=== PATIENT | male | born 1990 | race Caucasian/White ===

== ENCOUNTER 2017-08-17 13:40 | Inpatient (IN) | payer MEDICAID ==
[2017-08-17] MEDS ORDERED: OLANZapine DISINTEGR 10 MG TAB PO PRN (15:07)
[2017-08-17] MEDS ORDERED: NICOTINE POLACRILEX 2 MG GUM B PRN (15:07)
[2017-08-17] MEDS ORDERED: MAGNESIUM HYDROXIDE 30 ML UDCUP PO PRN (15:07)
[2017-08-17] MEDS ORDERED: ACETAMINOPHEN 325 MG TAB PO PRN (15:07)
[2017-08-17] MEDS ORDERED: MAG HYDROX/AL HYDROX/SIMETH 30 ML UDCUP PO PRN (15:07)
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
[2017-08-18] MEDS ORDERED: OLANZapine DISINTEGR 5 MG TAB PO PRN (16:56)
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
[2017-08-18] MEDS: PALIPERIDONE 3 MG TAB.ER PO SCH (20:20)
--- NOTE | 2017-08-19 18:28 | SOAPPROG ---
SOAP Progress Note Assessment/Plan: Assessment: 27 yo man with h/o schizophrenia and severe cannabis dependence. He was placed on M1 after destroying property and becoming angry/aggressive toward his FOC at home b/c FOC refused to buy him marijuana. Plan: 08/19/17 18:17 1. spoke to PANKAJ, Dr. Gamboa, at length by phone. [facility] states that patient went to [facility] for approx. 6 mos in 2014 after inpatient stay at [facility] in October. He was treated by Dr. Huntley at [facility] with "many medications." [facility] can't remember all the meds or why so many were tried, but he says patient had difficulty tolerating many of them. [facility] reports SE's included agitation, tremors , lethargy. [facility] says patient seemed "obtunded," lethargic and "slowed down" on meds which patient didn't like. [facility] denied noticing severe depression during this time as patient reports happened to him from "taking Abilify." [facility] says when he was discharged, patient went to live in [place] and saw POTATO CHIP COOKER MACHINE, Reji Barrios , at [facility]. [facility] states patient was not compliant with treatment and chose to "smoke pot" instead. [facility] says patient has been off meds for most of the past 2 years. He says since patient has been living with him at home, [facility] notices patient smokes THC "almost every 20 minutes." [facility] states patient did best during time he was at [facility] in . He states Dr. Salazar was prescribing "low doses" of antipsychotic meds and patient was receiving supervision and therapy from providers at [facility]. He states this is "when Goyo did the best." MD asks if [facility] would like patient to return to [facility], but he says, "it costs too much...we can't afford it." [facility] states patient was "on my insurance" in 2012 and is "now on Medicaid." [facility] has tried to get patient to go see Nelia Del Angel at [facility], but "he won't go." Patient suffered "2 seizures" in the past several months. Per [facility], he had full work up by Dr. Jovanny Gillette at [facility] recently. MRI of brain revealed no acute abnormalities. [facility] insists patient has "never" had seizure before. FOC says he feels patient is more impulsive and labile and makes "worse decisions" d /t his marijuana use, but patient adamantly refuses to quit. Patient is also refusing to take any psychotropics b/c he doesn't like the way they make him feel. [facility] states he is not aware of the patient ever having severe reaction to AP meds, including no EPS or NMS. 2. Will continue to offer patient Invega, however, he is refusing all psychotropic meds. 3. Dr. Arguello has already submitted letter to [employer] for COM. 4. [facility] would like patient to f/u with [facility]. 5. CC to request patient sign ROIs for all providers [facility] mentioned, especially [facility] since this is the place he was treated most recently for the longest period of time. Subjective: Met with patient, reviewed chart and d/w staff. Initially when MD introduced himself to patient, the patient was very distracted and difficult to engage. Later, patient approached MD and said he wanted to talk about his meds. Patient said he had taken "Sustenna" and Abilify in past, but couldn't remember what he didn't like about them. Then patient said he remembered Abilify "made me depressed." He says he also remembers feeling "agitated" on "one of them" and "had to smoke a lot of weed" to calm himself down. Patient says he doesn't have bipolar disorder or schizophrenia so he doesn't think he needs to be on meds. He denies any SI/HI, and says he isn't having any active hallucinations "right now." Objective: Vital Signs Temp Pulse Resp BP Pulse Ox 36.7 C 61 15 104/60 96 08/18/17 06:00 08/18/17 06:00 08/18/17 06:00 08/18/17 06:00 08/18/17 06:00 MSE: Affect: Flat Mood: "OK" TP: Disorganized, irrational TC: Denies any SI/ HI, no AH/VH, very disorganized Insight/Judgment: Poor - Time Spent With Patient Time Spent With Patient: 25" - Pending Discharge Pending Discharge Within 24 Hours: No Pending Discharge Within 48 Hours: No ICD10 Worksheet Patient Problems: Problems Problem Status Onset Cannabis abuse, daily use Acute Schizophrenia, chronic condition with acute exacerbation Acute
[2017-08-19] MEDS: PALIPERIDONE 3 MG TAB.ER PO SCH (21:32)
--- NOTE | 2017-08-20 17:32 | SOAPPROG ---
SOAP Progress Note Assessment/Plan: Assessment: 27 yo man with h/o schizophrenia and severe cannabis dependence. He was placed on M1 after destroying property and becoming angry/aggressive toward his FOC at home b/c FOC refused to buy him marijuana. Plan: 08/19/17 18:17 1. spoke to PANKAJ, Dr. Gamboa, at length by phone. [facility] states that patient went to [facility] for approx. 6 mos in 2014 after inpatient stay at [facility] in October. He was treated by Dr. Huntley at [facility] with "many medications." [facility] can't remember all the meds or why so many were tried, but he says patient had difficulty tolerating many of them. [facility] reports SE's included agitation, tremors , lethargy. [facility] says patient seemed "obtunded," lethargic and "slowed down" on meds which patient didn't like. [facility] denied noticing severe depression during this time as patient reports happened to him from "taking Abilify." [facility] says when he was discharged, patient went to live in [place] and saw TERMINAL MANAGER, Reji Barrios , at [facility]. [facility] states patient was not compliant with treatment and chose to "smoke pot" instead. [facility] says patient has been off meds for most of the past 2 years. He says since patient has been living with him at home, [facility] notices patient smokes THC "almost every 20 minutes." [facility] states patient did best during time he was at [facility] in . He states Dr. Salazar was prescribing "low doses" of antipsychotic meds and patient was receiving supervision and therapy from providers at [facility]. He states this is "when Goyo did the best." MD asks if [facility] would like patient to return to [facility], but he says, "it costs too much...we can't afford it." [facility] states patient was "on my insurance" in 2012 and is "now on Medicaid." [facility] has tried to get patient to go see Nelia Del Angel at [facility], but "he won't go." Patient suffered "2 seizures" in the past several months. Per [facility], he had full work up by Dr. Jovanny Gillette at [facility] recently. MRI of brain revealed no acute abnormalities. [facility] insists patient has "never" had seizure before. PANKAJ says he feels patient is more impulsive and labile and makes "worse decisions" d /t his marijuana use, but patient adamantly refuses to quit. Patient is also refusing to take any psychotropics b/c he doesn't like the way they make him feel. [facility] states he is not aware of the patient ever having severe reaction to AP meds, including no EPS or NMS. 2. Will continue to offer patient Invega, however, he is refusing all psychotropic meds. 3. Dr. Arguello has already submitted letter to [email or web address] for Hello Chair. 4. [facility] would like patient to f/u with [facility]. 5. CC to request patient sign ROIs for all providers [facility] mentioned, especially [facility] since this is the place he was treated most recently for the longest period of time. 08/20/17 17:23 1. Patient presents disorganized, confused, irrational. He still doesn't believe there is "anything wrong" with him except "I'm depressed." 2. Lengthy conversation with patient's FOC again, this time in person. Dr. Gamboa believes "there is something else going on" with his son other than psychosis. He believes he "might have an autoimmune disease" or that there is a physical abnormality in his brain. However, Dr. Gamboa admits patient had "a clean MRI" ordered by his neurologist. His neurologist recommended "a Parkinson' s med" that he says "has been used to treat psychosis. explained to [facility] that patient has refused all antipsychotic meds and has little to no insight into the nature or severity of his condition. PANKAJ said, "I know, that's the problem. " [facility] agreed that if [facility] had not taken care of patient for the past 2 years, it' s likely patient would have been admitted to psych hospital sooner since he has refused all tx since d/c from [facility] and has increased his use of marijuana. [facility] didn't believe marijuana had as adverse effect on patient's brain development as explained was likely. PANKAJ said, "I believe in more brain plasticity." accepted this was certainly a possibility, but reminded PANKAJ how much brain development occurs during adolescence and that patient has likely not developed some significant neural connections that mediate executive function as well as emotion regulation. recommended waiting to see how much patient's mental condition improves off marijuana while he is in hospital. [facility] thanked MD for answering questions and providing information. He said, "I guess we'll have to wait and see" how much Wyatt improves. 3. Petition for Hello Chair submitted by Dr. Arguello. 4. [facility] Subjective: Met with patient, reviewed chart and d/w staff. Patient presents confused, disorganized, with limited insight into his condition. He is still refusing antipsychotic meds. He is willing to take Zoloft, but explained that his diagnosis was psychotic disorder and would respond best to treatment with antipsychotics like ones he has been prescribed in past at [facility] and [facility]. Objective: Vital Signs Temp Pulse Resp BP Pulse Ox 36.7 C 61 15 104/60 96 08/18/17 06:00 08/18/17 06:00 08/18/17 06:00 08/18/17 06:00 08/18/17 06:00 MSE: Affect: Euthymic Mood: "OK" TP: Disorganized, confused, irrational TC: Denies any SI/HI, no hallucinations Insight/Judgment: Poor - Time Spent With Patient Time Spent With Patient: 15" - Pending Discharge Pending Discharge Within 24 Hours: No Pending Discharge Within 48 Hours: No ICD10 Worksheet Patient Problems: Problems Problem Status Onset Cannabis abuse, daily use Acute Schizophrenia, chronic condition with acute exacerbation Acute
[2017-08-20] MEDS: PALIPERIDONE 3 MG TAB.ER PO SCH (20:04)
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
[2017-08-21] MEDS: CHLORHEXIDINE GLUCONATE 15 ML UDL PO SCH (20:23)
[2017-08-21] MEDS: PALIPERIDONE 3 MG TAB.ER PO SCH (20:34)
[2017-08-21 20:54] VITALS: BP 106/68
[2017-08-22] MEDS: lamoTRIgine 100 MG TAB PO SCH ×2 (08:17→20:49)
[2017-08-22] MEDS: CHLORHEXIDINE GLUCONATE 15 ML UDL PO SCH ×2 (08:21→20:47)
--- NOTE | 2017-08-22 14:15 | SOAPPROG ---
SOAP Progress Note Assessment/Plan: Assessment: Plan: Subjective: Pt seen, discussed with staff, chart reviewed. He is lying in bed, calm, and coop. Affect is euthymic, stable, approp. Mood is "fine". TP is generally linear. TC reveals poor reality testing re: illness and need for treatment. Denies AH's. May have some paranoia towards parents. Denies SI/HI/. Objective: Vital Signs Temp Pulse Resp BP Pulse Ox 37.1 C 96 12 106/68 97 08/21/17 20:52 08/21/17 20:52 08/21/17 20:52 08/21/17 20:52 08/21/17 20:52 - Time Spent With Patient Time Spent With Patient: 15" ICD10 Worksheet Patient Problems: Problems Problem Status Onset Cannabis abuse, daily use Acute Schizophrenia, chronic condition with acute exacerbation Acute Seizure Acute Seizure disorder Acute Tongue laceration Acute
[2017-08-22] MEDS: PALIPERIDONE 3 MG TAB.ER PO SCH (20:47)
[2017-08-23] MEDS: lamoTRIgine 100 MG TAB PO SCH ×2 (10:40→20:13)
[2017-08-23] MEDS: CHLORHEXIDINE GLUCONATE 15 ML UDL PO SCH ×2 (10:47→21:09)
--- NOTE | 2017-08-23 16:45 | SOAPPROG ---
SOAP Progress Note Assessment/Plan: Assessment: Plan: 08/23/17 16:44 Psychosis: Remains paranoid, though in good behavioral control. Continues to refuse meds. COM hearing is 08/29/17. Subjective: Pt seen, discussed with staff. Reports feeling "fine, bored." Continues to largely isolate in his room, but was out in the day room this afternoon talking with other young male patients. He is quite malodorous and refuses to shower. He continues to refuse meds. No word on any plan for further evaluation in [place]. Objective: Vital Signs Temp Pulse Resp BP Pulse Ox 37.1 C 96 12 106/68 97 08/21/17 20:52 08/21/17 20:52 08/21/17 20:52 08/21/17 20:52 08/21/17 20:52 - Time Spent With Patient Time Spent With Patient: 15" ICD10 Worksheet Patient Problems: Problems Problem Status Onset Cannabis abuse, daily use Acute Schizophrenia, chronic condition with acute exacerbation Acute Seizure Acute Seizure disorder Acute Tongue laceration Acute
[2017-08-23] MEDS: PALIPERIDONE 3 MG TAB.ER PO SCH (21:09)
[2017-08-24] MEDS: lamoTRIgine 100 MG TAB PO SCH ×2 (10:49→20:49)
[2017-08-24] MEDS: CHLORHEXIDINE GLUCONATE 15 ML UDL PO SCH ×2 (11:02→20:48)
--- NOTE | 2017-08-24 14:24 | SOAPPROG ---
SOAP Progress Note Assessment/Plan: Assessment: Plan: 08/23/17 16:44 Psychosis: Remains paranoid, though in good behavioral control. Continues to refuse meds. COM hearing is 08/29/17. 08/24/17 14:25 Psychosis: Unchanged. He demonstrates exceedingly poor insight into the nature and severity of his mental and physical illnesses. He refuses to even take the mouth cleanser. Will continue to build a therapeutic alliance and hope to see him start Latuda on a voluntary basis. Not ideal due to lack of a MCCORD, but could help with acute stabilization at least. COM hearing next week. Subjective: Pt seen, discussed with staff. Reports feeling "just fine." Staff notes that pt continues to refuse to shower, brush his teeth or rinse his mouth with the disinfectant. I discussed the necessity of this with him at length inc: stating to him that he could lose his tongue if he got an infection. He states he doesn't want to use it because it [place]. I told him that that is how you know it's working. He laughed at this, but I emphasized that it indicates it is killing the "bad bacteria." He continues to refuse all antipsychotic medications. Later, he came to my office and asked to go back through the options. He is against the Invega "because it poisons me and blocks serotonin. " He was willing to listen about Latuda, however, and states he will discuss it with his family. I reviewed records from pt's last hospitalization at [facility]. This was from 11/19/14 - 03/29/15. He was treated with Prolixin, Zoloft and Saphris at that time with good effect. His presentation was exactly the same as it is now. Objective: Vital Signs Temp Pulse Resp BP Pulse Ox 37.1 C 96 12 106/68 97 08/21/17 20:52 08/21/17 20:52 08/21/17 20:52 08/21/17 20:52 08/21/17 20:52 MSE: Calm, though guarded. Activity and speech are nl. Affect is blunted, stable. Mood is "fine." TP is generally linear, though circumstantial at times. TC reveals ongoing somatic preoccupation, paranoia and IOR's. Denies AH 's. - Time Spent With Patient Time Spent With Patient: 25" ICD10 Worksheet Patient Problems: Problems Problem Status Onset Cannabis abuse, daily use Acute Schizophrenia, chronic condition with acute exacerbation Acute Seizure Acute Seizure disorder Acute Tongue laceration Acute
[2017-08-24] MEDS: PALIPERIDONE 3 MG TAB.ER PO SCH (20:57)
[2017-08-25] MEDS: lamoTRIgine 100 MG TAB PO SCH ×2 (08:57→20:34)
[2017-08-25] MEDS: CHLORHEXIDINE GLUCONATE 15 ML UDL PO SCH ×2 (09:00→20:35)
--- NOTE | 2017-08-25 16:02 | SOAPPROG ---
SOAP Progress Note Assessment/Plan: Assessment: Plan: 08/23/17 16:44 Psychosis: Remains paranoid, though in good behavioral control. Continues to refuse meds. COM hearing is 08/29/17. 08/24/17 14:25 Psychosis: Unchanged. He demonstrates exceedingly poor insight into the nature and severity of his mental and physical illnesses. He refuses to even take the mouth cleanser. Will continue to build a therapeutic alliance and hope to see him start Latuda on a voluntary basis. Not ideal due to lack of a MCCORD, but could help with acute stabilization at least. COM hearing next week. 08/25/17 16:02 Psychosis: Calm and coop. Will proceed as above, cancel COM hearing. Subjective: Pt seen, discussed with staff. Family held with myself, CC, pt and pt's father. We discussed treatment and d/c plans. It appears that pt is not welcome back at either parent's home at this point. Father offered to arrange an apartment. Pt continues to refuse any antipsychotic medications, but is agreeable to starting Zoloft for his depressed mood and anxiety as this has been helpful in the past. He will also continue Lamictal. Objective: Vital Signs Temp Pulse Resp BP Pulse Ox 37.1 C 96 12 106/68 97 08/21/17 20:52 08/21/17 20:52 08/21/17 20:52 08/21/17 20:52 08/21/17 20:52 MSE: Calm, coop. Affect is euthymic, stable, approp. Mood is "depressed." TP generally linear. TC reveals some paranoid thoughts. Denies SI/HI/. - Time Spent With Patient Time Spent With Patient: 35" ICD10 Worksheet Patient Problems: Problems Problem Status Onset Cannabis abuse, daily use Acute Schizophrenia, chronic condition with acute exacerbation Acute Seizure Acute Seizure disorder Acute Tongue laceration Acute
[2017-08-25] MEDS: PALIPERIDONE 3 MG TAB.ER PO SCH (20:36)
[2017-08-26] MEDS: CHLORHEXIDINE GLUCONATE 15 ML UDL PO SCH ×2 (01:29→09:01)
[2017-08-26] MEDS ORDERED: CHLORHEXIDINE GLUCONATE 15 ML UDL ONE (02:23)
[2017-08-26] MEDS: lamoTRIgine 100 MG TAB PO SCH ×2 (09:01→21:44)
[2017-08-26] MEDS: SERTRALINE HCL 50 MG TAB PO SCH (15:31)
--- NOTE | 2017-08-26 15:58 | SOAPPROG ---
SOAP Progress Note Assessment/Plan: Assessment: Plan: 08/23/17 16:44 Psychosis: Remains paranoid, though in good behavioral control. Continues to refuse meds. COM hearing is 08/29/17. 08/24/17 14:25 Psychosis: Unchanged. He demonstrates exceedingly poor insight into the nature and severity of his mental and physical illnesses. He refuses to even take the mouth cleanser. Will continue to build a therapeutic alliance and hope to see him start Latuda on a voluntary basis. Not ideal due to lack of a MCCORD, but could help with acute stabilization at least. COM hearing next week. 08/25/17 16:02 Psychosis: Calm and coop. Will proceed as above, cancel COM hearing. 08/26/17 15:58 Psychosis: No change. Behaviorally stable. CCM. Continue d/c planning. Subjective: Pt seen, discussed with staff. I also spoke to pt's mother during her visit over lunch today. She describes him as "not well." She plans to talk to him about options for housing after d/c. SHe did not disclose whether that meant he could stay with her or not. I discussed this with pt earlier today and he stated, "I'll need to give her a big apology." Remains compliant with Lamictal and wants to take Zoloft. Objective: Vital Signs Temp Pulse Resp BP Pulse Ox 37.1 C 96 12 106/68 97 08/21/17 20:52 08/21/17 20:52 08/21/17 20:52 08/21/17 20:52 08/21/17 20:52 MSE: Calm, coop. Affect is euthymic, stable, approp. Mood is "good." TP linear. TC reveals some paranoia, poor reality testing. Denies SI/HI/. - Time Spent With Patient Time Spent With Patient: 25" ICD10 Worksheet Patient Problems: Problems Problem Status Onset Cannabis abuse, daily use Acute Schizophrenia, chronic condition with acute exacerbation Acute Seizure Acute Seizure disorder Acute Tongue laceration Acute
[2017-08-27] MEDS: LORazepam 0.5 MG TAB PO PRN ×4 (00:51→22:52)
[2017-08-27] MEDS: ACETAMINOPHEN 325 MG TAB PO PRN (02:21)
[2017-08-27] MEDS: SERTRALINE HCL 50 MG TAB PO SCH (07:52)
[2017-08-27] MEDS: lamoTRIgine 100 MG TAB PO SCH ×2 (07:53→20:21)
[2017-08-27] MEDS: CHLORHEXIDINE GLUCONATE 15 ML UDL PO SCH ×2 (08:25→20:26)
--- NOTE | 2017-08-27 14:35 | HOSPPROG ---
Hospitalist Progress Note Assessment/Plan: # ?thrush - empiric nystatin # tongue laceration - cont chlorhexadine # seizure - lamictal Subjective: ongoing mouth pain, better than yesterday Objective: Vital Signs Temp Pulse Resp BP Pulse Ox 37.1 C 96 12 106/68 97 08/21/17 20:52 08/21/17 20:52 08/21/17 20:52 08/21/17 20:52 08/21/17 20:52 08/26/17 08/27/17 08/28/17 05:59 05:59 05:59 Intake Total 1200 Balance 1200 - Physical Exam Ears, Nose, Mouth, Throat: other (whitish coating on tongue; laceration on tongue improved) ICD10 Worksheet Patient Problems: Problems Problem Status Onset Schizophrenia, chronic condition with acute exacerbation Acute Cannabis abuse, daily use Acute Seizure disorder Acute Seizure Acute Tongue laceration Acute
--- NOTE | 2017-08-27 15:51 | SOAPPROG ---
SOAP Progress Note Assessment/Plan: Assessment: Per Dr. Arguello's note: 08/23/17 16:44 Psychosis: Remains paranoid, though in good behavioral control. Continues to refuse meds. COM hearing is 08/29/17. 08/24/17 14:25 Psychosis: Unchanged. He demonstrates exceedingly poor insight into the nature and severity of his mental and physical illnesses. He refuses to even take the mouth cleanser. Will continue to build a therapeutic alliance and hope to see him start Latuda on a voluntary basis. Not ideal due to lack of a MCCORD, but could help with acute stabilization at least. COM hearing next week. 08/25/17 16:02 Psychosis: Calm and coop. Will proceed as above, cancel COM hearing. 08/26/17 15:58 Psychosis: No change. Behaviorally stable. CCM. Continue d/c planning. Plan: 08/27/17 15:47 1. Patient was seen by Dr. Alvarado today. Dr. Alvarado noted a whitish substance on patient's tongue and questioned possible thrush. He ordered empiric Nystatin. 2. Patient tolerating Lamictal for seizures and Zoloft for depression. Patient denies feeling sad, depressed, hopeless, worthless, helpless. He is sleeping, eating well and is future-oriented. He denies any SI/HI. 3. Patient has been attending groups and participating in milieu activities. 4. [facility] asked for family meeting prior to d/c to discuss housing options and treatment plans. Recommended she contact CC to set up a time to meet or talk by phone. Subjective: Met with patient, reviewed chart and d/w staff. Patient has been attending groups and participating in milieu activities, but he has no insight into the reasons he was admitted to hospital or why his POC are concerned about his ability to function after he leaves the hospital. Patient is not intending to do anything different after he leaves. It's unclear whether he will even remain on Lamictal for seizures as he has limited insight into why this medication is helping him. He thinks he had seizure b/c he stopped smoking pot, so plans to treat his seizures with more pot after d/c, despite his psychiatrists warning him about the risks and adverse reactions associated with marijuana use in patients susceptible to mood instability and psychosis. He denies any SI/HI. Objective: Vital Signs Temp Pulse Resp BP Pulse Ox 37.1 C 96 12 106/68 97 08/21/17 20:52 08/21/17 20:52 08/21/17 20:52 08/21/17 20:52 08/21/17 20:52 08/26/17 08/27/17 08/28/17 05:59 05:59 05:59 Intake Total 1200 Balance 1200 MSE: Affect: Euthymic Mood: "OK" TP: Tangential TC: Denies any SI/HI, less paranoia, no AH/VH Insight/Judgment: Impaired - Time Spent With Patient Time Spent With Patient: 15" - Pending Discharge Pending Discharge Within 24 Hours: No Pending Discharge Within 48 Hours: No ICD10 Worksheet Patient Problems: Problems Problem Status Onset Cannabis abuse, daily use Acute Schizophrenia, chronic condition with acute exacerbation Acute Seizure Acute Seizure disorder Acute Tongue laceration Acute
[2017-08-27] MEDS: NYSTATIN SUSP 500000 UNIT/5 ML UDCUP PO SCH ×2 (18:36→20:27)
[2017-08-28] MEDS: LORazepam 0.5 MG TAB PO PRN (05:10)
[2017-08-28] MEDS: NYSTATIN SUSP 500000 UNIT/5 ML UDCUP PO SCH ×2 (06:57→14:59)
[2017-08-28] MEDS: lamoTRIgine 100 MG TAB PO SCH ×2 (08:46→20:15)
[2017-08-28] MEDS: SERTRALINE HCL 50 MG TAB PO SCH (08:46)
[2017-08-28] MEDS: CHLORHEXIDINE GLUCONATE 15 ML UDL PO SCH ×2 (11:07→20:15)
--- NOTE | 2017-08-28 14:20 | SOAPPROG ---
SOAP Progress Note Assessment/Plan: Assessment: Per Dr. Arguello's note: 08/23/17 16:44 Psychosis: Remains paranoid, though in good behavioral control. Continues to refuse meds. COM hearing is 08/29/17. 08/24/17 14:25 Psychosis: Unchanged. He demonstrates exceedingly poor insight into the nature and severity of his mental and physical illnesses. He refuses to even take the mouth cleanser. Will continue to build a therapeutic alliance and hope to see him start Latuda on a voluntary basis. Not ideal due to lack of a MCCORD, but could help with acute stabilization at least. COM hearing next week. 08/25/17 16:02 Psychosis: Calm and coop. Will proceed as above, cancel COM hearing. 08/26/17 15:58 Psychosis: No change. Behaviorally stable. CCM. Continue d/c planning. Plan: 08/27/17 15:47 1. Patient was seen by Dr. Alvarado today. Dr. Alvarado noted a whitish substance on patient's tongue and questioned possible thrush. He ordered empiric Nystatin. 2. Patient tolerating Lamictal for seizures and Zoloft for depression. Patient denies feeling sad, depressed, hopeless, worthless, helpless. He is sleeping, eating well and is future-oriented. He denies any SI/HI. 3. Patient has been attending groups and participating in milieu activities. 4. [facility] asked for family meeting prior to d/c to discuss housing options and treatment plans. Recommended she contact CC to set up a time to meet or talk by phone. 08/28/17 14:14 1. Patient has not been eating solid food x 2 days. Patient says it is b/c his tongue hurts. However, Dr. Alvarado noted that patient should be able to eat solid food now. Patient is drinking plenty of fluids. 2. Continue Peridex and Nystatin. 3. Patient denies any SE's from Zoloft or Lamictal, no rash. 4. Patient received Ativan PRN x 2 for anxiety. 5. COM petition has been dropped. Subjective: Met with patient, reviewed chart and d/w staff. Patient told staff he felt "anxious" and has taken Ativan PRN x 2 last night and today. However, when MD met with patient, he did not present as agitated, anxious or restless. He played MOgene with POC yesterday and did not seem anxious or distracted during that encounter. Patient has been refusing to eat solid food x 2 days. He says his tongue still "hurts." However, Dr. Alvarado noted that patient should be able to tolerate regular meals. Patient was asked to leave group this AM b/c he was provoking a peer with incessant questions. He told staff he "didn't say anything" at all in group to upset peer. Patient has not been aggressive or inappropriate, but he does present as disorganized and doesn't make sense much of the time. He denies any SI/HI, and denies any AH/VH. Objective: Vital Signs Temp Pulse Resp BP Pulse Ox 37.1 C 96 12 106/68 97 08/21/17 20:52 08/21/17 20:52 08/21/17 20:52 08/21/17 20:52 08/21/17 20:52 08/27/17 08/28/17 08/29/17 05:59 05:59 05:59 Intake Total 2560 Balance 2560 MSE: Affect: Euthymic Mood: "OK" TP: Tangential, disorganized, illogical TC: Denies any SI/HI, no AH/VH Insight/Judgment: Impaired - Time Spent With Patient Time Spent With Patient: 15" - Pending Discharge Pending Discharge Within 24 Hours: No Pending Discharge Within 48 Hours: No ICD10 Worksheet Patient Problems: Problems Problem Status Onset Cannabis abuse, daily use Acute Schizophrenia, chronic condition with acute exacerbation Acute Seizure Acute Seizure disorder Acute Tongue laceration Acute
[2017-08-28] MEDS ORDERED: CEPACOL LOZENGE PO PRN (15:31)
--- NOTE | 2017-08-28 15:31 | HOSPPROG ---
Hospitalist Progress Note Assessment/Plan: # ?thrush - discussed with ID - doubt thrush; more likely normal tongue carpet - stop nystatin # tongue laceration - cont chlorhexadine # odynophagia - may be due to the tongue laceration (should not be due to the tongue carpet) - he should be able to eat soft foods if not tolerating solids - he could trial cepacol lozenge Subjective: feels his mouth i slightly better after using mouthwash Objective: Vital Signs Temp Pulse Resp BP Pulse Ox 37.1 C 96 12 106/68 97 08/21/17 20:52 08/21/17 20:52 08/21/17 20:52 08/21/17 20:52 08/21/17 20:52 08/27/17 08/28/17 08/29/17 05:59 05:59 05:59 Intake Total 2560 Balance 2560 - Physical Exam Ears, Nose, Mouth, Throat: other (tongue with whitish material; none on buccal mucosa or palate) ICD10 Worksheet Patient Problems: Problems Problem Status Onset Schizophrenia, chronic condition with acute exacerbation Acute Cannabis abuse, daily use Acute Seizure disorder Acute Seizure Acute Tongue laceration Acute
[2017-08-29] MEDS: SERTRALINE HCL 50 MG TAB PO SCH (07:50)
[2017-08-29] MEDS: lamoTRIgine 100 MG TAB PO SCH ×2 (07:50→20:37)
[2017-08-29] MEDS: CHLORHEXIDINE GLUCONATE 15 ML UDL PO SCH ×3 (14:43→20:37)
--- NOTE | 2017-08-29 17:48 | SOAPPROG ---
SOAP Progress Note Assessment/Plan: Assessment: Plan: 08/23/17 16:44 Psychosis: Remains paranoid, though in good behavioral control. Continues to refuse meds. COM hearing is 08/29/17. 08/24/17 14:25 Psychosis: Unchanged. He demonstrates exceedingly poor insight into the nature and severity of his mental and physical illnesses. He refuses to even take the mouth cleanser. Will continue to build a therapeutic alliance and hope to see him start Latuda on a voluntary basis. Not ideal due to lack of a MCCORD, but could help with acute stabilization at least. COM hearing next week. 08/25/17 16:02 Psychosis: Calm and coop. Will proceed as above, cancel COM hearing. 08/26/17 15:58 Psychosis: No change. Behaviorally stable. CCM. Continue d/c planning. 08/29/17 17:49 Psychosis: More disruptive. He continues to lack meaningful insight into his illness or the need for treatment. He continues to refuse any antipsychotic medication. Will resubmit request for involuntary medications. Subjective: Pt seen, discussed with staff, chart reviewed. Reports feeling "fine." Was reported to be antagonistic over the weekend, bothering fellow patients by frequently stating medication are bad for people and everyone should stop them and use marijuana to treat themselves. I discussed the case with patient's father x 30" and his mother x 45" this afternoon. Both now state that they do not believe he will be safe without court-ordered antipsychotic medications. He remains adamantly against these, though has been taking Lamictal and Zoloft. He also states now that he plans to return to marijuana use as soon as he leaves the hospital. Objective: Vital Signs Temp Pulse Resp BP Pulse Ox 37.1 C 96 12 106/68 97 08/21/17 20:52 08/21/17 20:52 08/21/17 20:52 08/21/17 20:52 08/21/17 20:52 08/28/17 08/29/17 08/30/17 05:59 05:59 05:59 Intake Total 2560 240 780 Balance 2560 240 780 MSE: Poorly groomed, guarded. Affect is constricted, stable. Mood is "good." TP abbreviated, generally linear. TC reveals no mention of AH's. Remains focused on his "muslim" beliefs. Avoids discussion of delusional systems. - Time Spent With Patient Time Spent With Patient: 90" ICD10 Worksheet Patient Problems: Problems Problem Status Onset Cannabis abuse, daily use Acute Schizophrenia, chronic condition with acute exacerbation Acute Seizure Acute Seizure disorder Acute Tongue laceration Acute
[2017-08-30] MEDS: ACETAMINOPHEN 325 MG TAB PO PRN ×3 (02:10→21:40)
[2017-08-30] MEDS: SERTRALINE HCL 50 MG TAB PO SCH (08:58)
[2017-08-30] MEDS: lamoTRIgine 100 MG TAB PO SCH ×2 (08:58→21:02)
[2017-08-30] MEDS: CHLORHEXIDINE GLUCONATE 15 ML UDL PO SCH ×2 (14:52→21:06)
--- NOTE | 2017-08-30 22:14 | SOAPPROG ---
SOAP Progress Note Assessment/Plan: Assessment: Plan: 08/23/17 16:44 Psychosis: Remains paranoid, though in good behavioral control. Continues to refuse meds. COM hearing is 08/29/17. 08/24/17 14:25 Psychosis: Unchanged. He demonstrates exceedingly poor insight into the nature and severity of his mental and physical illnesses. He refuses to even take the mouth cleanser. Will continue to build a therapeutic alliance and hope to see him start Latuda on a voluntary basis. Not ideal due to lack of a MCCORD, but could help with acute stabilization at least. COM hearing next week. 08/25/17 16:02 Psychosis: Calm and coop. Will proceed as above, cancel COM hearing. 08/26/17 15:58 Psychosis: No change. Behaviorally stable. CCM. Continue d/c planning. 08/29/17 17:49 Psychosis: More disruptive. He continues to lack meaningful insight into his illness or the need for treatment. He continues to refuse any antipsychotic medication. Will resubmit request for involuntary medications. 08/30/17 22:14 Psychosis: REmains psychotic. CCM. Applied for COM Subjective: Pt seen, discussed with staff. I reviewed with him my opinion that he is unsafe and unstable without antipsychotic medications. He becomes angry, stating, "Your medications are against my episcopal, they're evil." He then went on to state that all psychotropic medications are "poison" and he will never take them voluntarily. Objective: Vital Signs Temp Pulse Resp BP Pulse Ox 37.1 C 96 12 106/68 97 08/21/17 20:52 08/21/17 20:52 08/21/17 20:52 08/21/17 20:52 08/21/17 20:52 08/29/17 08/30/17 08/31/17 05:59 05:59 05:59 Intake Total 008 158 0582 Balance 771 588 7619 ICD10 Worksheet Patient Problems: Problems Problem Status Onset Cannabis abuse, daily use Acute Schizophrenia, chronic condition with acute exacerbation Acute Seizure Acute Seizure disorder Acute Tongue laceration Acute
[2017-08-31] MEDS: ACETAMINOPHEN 325 MG TAB PO PRN ×4 (01:38→22:59)
[2017-08-31] MEDS: SERTRALINE HCL 50 MG TAB PO SCH (08:56)
[2017-08-31] MEDS: lamoTRIgine 100 MG TAB PO SCH ×3 (08:56→21:09)
[2017-08-31] MEDS: CHLORHEXIDINE GLUCONATE 15 ML UDL PO SCH ×4 (13:08→21:10)
--- NOTE | 2017-08-31 14:02 | SOAPPROG ---
SOAP Progress Note Assessment/Plan: Assessment: Plan: 08/23/17 16:44 Psychosis: Remains paranoid, though in good behavioral control. Continues to refuse meds. COM hearing is 08/29/17. 08/24/17 14:25 Psychosis: Unchanged. He demonstrates exceedingly poor insight into the nature and severity of his mental and physical illnesses. He refuses to even take the mouth cleanser. Will continue to build a therapeutic alliance and hope to see him start Latuda on a voluntary basis. Not ideal due to lack of a MCCORD, but could help with acute stabilization at least. COM hearing next week. 08/25/17 16:02 Psychosis: Calm and coop. Will proceed as above, cancel COM hearing. 08/26/17 15:58 Psychosis: No change. Behaviorally stable. CCM. Continue d/c planning. 08/29/17 17:49 Psychosis: More disruptive. He continues to lack meaningful insight into his illness or the need for treatment. He continues to refuse any antipsychotic medication. Will resubmit request for involuntary medications. 08/30/17 22:14 Psychosis: REmains psychotic. CCM. Applied for COM 08/31/17 14:02 Psychosis: Unchanged. CCM. Subjective: Pt seen, discussed with staff. RN reports a diffuse rash on his back and abdomen. Difficult for me to see. Pt does not notice it. He continues to refuse all antipsychotic medications, though states he will take PO Latuda. He goes on to say, however, that he believes it is poison and will not take it after leaving the hospital. Objective: Vital Signs Temp Pulse Resp BP Pulse Ox 37.1 C 96 12 106/68 97 08/21/17 20:52 08/21/17 20:52 08/21/17 20:52 08/21/17 20:52 08/21/17 20:52 08/30/17 08/31/17 09/01/17 05:59 05:59 05:59 Intake Total 780 1350 Balance 780 1350 - Time Spent With Patient Time Spent With Patient: 15" ICD10 Worksheet Patient Problems: Problems Problem Status Onset Cannabis abuse, daily use Acute Schizophrenia, chronic condition with acute exacerbation Acute Seizure Acute Seizure disorder Acute Tongue laceration Acute
--- NOTE | 2017-08-31 19:48 | SOAPPROG ---
SOAP Progress Note Assessment/Plan: Assessment: Rash on upper arms, unclear etiology. Trial of triamcinolone. It does not itch or burn so doubt that it is consistent with eczema. Does not appear psoriatic. Not raise so not consistent with keratosis pilaris. Observe for resolution. Groin rash, likely tinea cruris. Ordered nystatin powder. Mouth pain, possible residual of tongue biting when he had a seizure. No discrete lesions seen. Encourage hygiene with regular toothbrush after meals. Encourage regular showering. 08/31/17 19:48 Subjective: Asked to see patient about rash in about mouth pain. He shows a rash on his upper arms. Nurse reports ports a rash in his groin as well. Objective: Vital Signs Temp Pulse Resp BP Pulse Ox 37.1 C 96 12 106/68 97 08/21/17 20:52 08/21/17 20:52 08/21/17 20:52 08/21/17 20:52 08/21/17 20:52 08/30/17 08/31/17 09/01/17 05:59 05:59 05:59 Intake Total 780 1350 Balance 780 1350 Physical Exam - Physical Exam General Appearance: WD/WN, alert, no apparent distress EENT: other (No discrete mucosal lesions seen. Has coating on tongue which does not appear consistent with thrush.) Skin: other (Blanching petechiae on lower aspect of left arm greater than right arm, not raised.) ICD10 Worksheet Patient Problems: Problems Problem Status Onset Cannabis abuse, daily use Acute Schizophrenia, chronic condition with acute exacerbation Acute Seizure Acute Seizure disorder Acute Tongue laceration Acute
[2017-08-31] MEDS: NYSTATIN POWDER 15 GM BTL TP SCH (21:09)
[2017-08-31] MEDS: TRIAMCINOLONE 0.1% 15 GM CRTUBE TP SCH (21:09)
[2017-09-01] MEDS: ACETAMINOPHEN 325 MG TAB PO PRN ×3 (07:37→23:44)
[2017-09-01] MEDS: lamoTRIgine 100 MG TAB PO SCH (08:38)
[2017-09-01] MEDS: SERTRALINE HCL 50 MG TAB PO SCH (08:38)
[2017-09-01] MEDS: TRIAMCINOLONE 0.1% 15 GM CRTUBE TP SCH ×3 (08:51→20:01)
[2017-09-01] MEDS: CHLORHEXIDINE GLUCONATE 15 ML UDL PO SCH ×4 (08:51→22:10)
[2017-09-01] MEDS: NYSTATIN POWDER 15 GM BTL TP SCH ×3 (08:51→20:01)
--- NOTE | 2017-09-01 15:03 | SOAPPROG ---
SOAP Progress Note Assessment/Plan: Assessment: Plan: 08/23/17 16:44 Psychosis: Remains paranoid, though in good behavioral control. Continues to refuse meds. COM hearing is 08/29/17. 08/24/17 14:25 Psychosis: Unchanged. He demonstrates exceedingly poor insight into the nature and severity of his mental and physical illnesses. He refuses to even take the mouth cleanser. Will continue to build a therapeutic alliance and hope to see him start Latuda on a voluntary basis. Not ideal due to lack of a MCCORD, but could help with acute stabilization at least. COM hearing next week. 08/25/17 16:02 Psychosis: Calm and coop. Will proceed as above, cancel COM hearing. 08/26/17 15:58 Psychosis: No change. Behaviorally stable. CCM. Continue d/c planning. 08/29/17 17:49 Psychosis: More disruptive. He continues to lack meaningful insight into his illness or the need for treatment. He continues to refuse any antipsychotic medication. Will resubmit request for involuntary medications. 08/30/17 22:14 Psychosis: REmains psychotic. CCM. Applied for COM 08/31/17 14:02 Psychosis: Unchanged. CCM. 09/01/17 15:04 Psychosis: Remains gravely disabled and danger to others due to lack of insight into nature or severity of his illness. Will CCM. See [facility]: MCCORD. Will change to alternative AED. Subjective: Pt seen, discussed with staff. Reports feeling "fine." Refused Lamictal due to worry over rash. Appreciate Dr. Lyons's input. Behaviors remain stable. Still irritable/hostile with family. Continues to refuse antipsychotic medications. Objective: Vital Signs Temp Pulse Resp BP Pulse Ox 37.1 C 96 12 106/68 97 08/21/17 20:52 08/21/17 20:52 08/21/17 20:52 08/21/17 20:52 08/21/17 20:52 08/31/17 09/01/17 09/02/17 05:59 05:59 05:59 Intake Total 1350 Balance 1350 MSE: Calm, though guarded. Affect is constricted, stable. Mood is "fine." TP generally linear. TC reveals some paranoid and odd catholic thoughts. - Time Spent With Patient Time Spent With Patient: 15" ICD10 Worksheet Patient Problems: Problems Problem Status Onset Cannabis abuse, daily use Acute Schizophrenia, chronic condition with acute exacerbation Acute Seizure Acute Seizure disorder Acute Tongue laceration Acute
[2017-09-01] MEDS: levETIRAcetam 500 MG TAB PO SCH (19:09)
[2017-09-02] MEDS: ACETAMINOPHEN 325 MG TAB PO PRN ×3 (03:44→22:14)
[2017-09-02] MEDS: SERTRALINE HCL 50 MG TAB PO SCH (08:44)
[2017-09-02] MEDS: levETIRAcetam 500 MG TAB PO SCH ×2 (08:44→20:05)
[2017-09-02] MEDS: CHLORHEXIDINE GLUCONATE 15 ML UDL PO SCH ×3 (12:50→22:38)
[2017-09-02] MEDS: TRIAMCINOLONE 0.1% 15 GM CRTUBE TP SCH ×3 (14:50→21:29)
[2017-09-02] MEDS: NYSTATIN POWDER 15 GM BTL TP SCH ×3 (14:50→21:29)
--- NOTE | 2017-09-02 14:53 | SOAPPROG ---
SOAP Progress Note Assessment/Plan: Assessment: Plan: 08/23/17 16:44 Psychosis: Remains paranoid, though in good behavioral control. Continues to refuse meds. COM hearing is 08/29/17. 08/24/17 14:25 Psychosis: Unchanged. He demonstrates exceedingly poor insight into the nature and severity of his mental and physical illnesses. He refuses to even take the mouth cleanser. Will continue to build a therapeutic alliance and hope to see him start Latuda on a voluntary basis. Not ideal due to lack of a MCCORD, but could help with acute stabilization at least. COM hearing next week. 08/25/17 16:02 Psychosis: Calm and coop. Will proceed as above, cancel COM hearing. 08/26/17 15:58 Psychosis: No change. Behaviorally stable. CCM. Continue d/c planning. 08/29/17 17:49 Psychosis: More disruptive. He continues to lack meaningful insight into his illness or the need for treatment. He continues to refuse any antipsychotic medication. Will resubmit request for involuntary medications. 08/30/17 22:14 Psychosis: REmains psychotic. CCM. Applied for COM 08/31/17 14:02 Psychosis: Unchanged. CCM. 09/01/17 15:04 Psychosis: Remains gravely disabled and danger to others due to lack of insight into nature or severity of his illness. Will CCM. See [facility]: M[facility]. Will change to alternative AED. 09/02/17 14:52 Psychosis: Calm and coop. Agrees to take Latuda. Will proceed with this while waiting for COM hearing. The risks, benefits and alternatives of Latuday are discussed with pt. Subjective: Pt seen, discussed with staff. Reports feeling "fine." Discussed meds and he states again that he is willing to take Latuda orally. Also states that he is considering the possibility that the MJ may be worsening his mental state. No behavioral problems. Rash is unchanged. Objective: Vital Signs Temp Pulse Resp BP Pulse Ox 37.1 C 96 12 106/68 97 08/21/17 20:52 08/21/17 20:52 08/21/17 20:52 08/21/17 20:52 08/21/17 20:52 MSE: Calm, coop. Affect is blunted, stable. Mood is "fine." TP is generally linear. TC reveals no A/V/T hallucinations, some paranoid and grandiose thoughts. ICD10 Worksheet Patient Problems: Problems Problem Status Onset Cannabis abuse, daily use Acute Schizophrenia, chronic condition with acute exacerbation Acute Seizure Acute Seizure disorder Acute Tongue laceration Acute
[2017-09-02] MEDS: LURASIDONE HCL 40 MG TAB PO SCH (20:05)
[2017-09-03] MEDS: LORazepam 0.5 MG TAB PO PRN (01:32)
[2017-09-03] MEDS: ACETAMINOPHEN 325 MG TAB PO PRN (03:18)
[2017-09-03] MEDS: CHLORHEXIDINE GLUCONATE 15 ML UDL PO SCH ×2 (07:34→22:39)
[2017-09-03] MEDS: SERTRALINE HCL 50 MG TAB PO SCH (07:34)
[2017-09-03] MEDS: levETIRAcetam 500 MG TAB PO SCH ×2 (07:35→21:30)
[2017-09-03] MEDS: NYSTATIN POWDER 15 GM BTL TP SCH ×3 (08:32→22:40)
[2017-09-03] MEDS: TRIAMCINOLONE 0.1% 15 GM CRTUBE TP SCH ×3 (08:33→22:40)
--- NOTE | 2017-09-03 14:42 | SOAPPROG ---
SOAP Progress Note Assessment/Plan: Assessment: Per Dr. Arguello's note: 08/29/17 17:49 Psychosis: More disruptive. He continues to lack meaningful insight into his illness or the need for treatment. He continues to refuse any antipsychotic medication. Will resubmit request for involuntary medications. 08/30/17 22:14 Psychosis: REmains psychotic. CCM. Applied for COM 08/31/17 14:02 Psychosis: Unchanged. CCM. 09/01/17 15:04 Psychosis: Remains gravely disabled and danger to others due to lack of insight into nature or severity of his illness. Will CCM. See [facility]: M[facility]. Will change to alternative AED. 09/02/17 14:52 Psychosis: Calm and coop. Agrees to take Latuda. Will proceed with this while waiting for COM hearing. The risks, benefits and alternatives of Latuday are discussed with pt. 09/03/17 14:37 1. Patient switched from Lamictal to Keppra this week for seizures d/t rash. 2. Patient agreed to take Latuda last night, but tells MD he "thought I was going to ." Patient says he felt a "negative void" in his chest. He denies any kind of chest pain, and denies any physical reaction. He states it felt "like a 9.8" but doesn't say on what kind of scale. Patient denies stiffness, rigidity, slowing. There is no evidence of dystonia or abnormal involuntary movements. MD encourages patient to try medication again and give it sufficient time to demonstrate benefits, but patient says "no way." 3. Dr. Chong, a court appointed forensic psychiatrist, completed a capacity evaluation on behalf of [facility] where patient has a reckless driving charge from 02/2017. Documentation from [facility] Court was placed in the patient's chart. 4. [id number] petition pending. Subjective: Met with patient, reviewed chart and d/w staff. Patient states taking Latuda last night was a "terrible" experience. He says, "I almost ." When asked to explain, patient reports he felt a "negative feeling" in his chest, but denies any physical reaction, and there was no report of dystonia. Patient denies any stiffness, rigidity, slowing, no s/s of EPS present. Patient goes completely off topic and tells MD that he "researched antipsychotics" and found a study where "140 crazy people were studied" and "70 took antipsychotics and 70 didn't. " He goes on to say that the conclusion of the research showed that "the drugs make people more crazy." Patient said he was getting "amped" up talking about it , and abruptly ended conversation by walking away from MD. Objective: Vital Signs Temp Pulse Resp BP Pulse Ox 37.1 C 96 12 106/68 97 08/21/17 20:52 08/21/17 20:52 08/21/17 20:52 08/21/17 20:52 08/21/17 20:52 MSE: Affect: Labile, irritable at the end of conversation Mood: "OK" TP: Disorganized, tangential, irrational TC: No SI/HI, denies any AH/VH, still has some paranoia about meds especially Insight/Judgment: Poor - Time Spent With Patient Time Spent With Patient: 25" - Pending Discharge Pending Discharge Within 24 Hours: No Pending Discharge Within 48 Hours: No ICD10 Worksheet Patient Problems: Problems Problem Status Onset Cannabis abuse, daily use Acute Schizophrenia, chronic condition with acute exacerbation Acute Seizure Acute Seizure disorder Acute Tongue laceration Acute
[2017-09-03] MEDS ORDERED: IBUPROFEN 200 MG TAB PO PRN (15:06)
[2017-09-03] MEDS: LURASIDONE HCL 40 MG TAB PO SCH ×2 (18:21→18:24)
[2017-09-04] MEDS: levETIRAcetam 500 MG TAB PO SCH ×2 (10:19→22:12)
[2017-09-04] MEDS: SERTRALINE HCL 50 MG TAB PO SCH ×2 (10:20→12:18)
[2017-09-04] MEDS: NYSTATIN POWDER 15 GM BTL TP SCH ×3 (12:19→22:14)
[2017-09-04] MEDS: TRIAMCINOLONE 0.1% 15 GM CRTUBE TP SCH ×3 (12:26→22:14)
--- NOTE | 2017-09-04 14:02 | SOAPPROG ---
SOAP Progress Note Assessment/Plan: Assessment: Per Dr. Arguello's note: 08/29/17 17:49 Psychosis: More disruptive. He continues to lack meaningful insight into his illness or the need for treatment. He continues to refuse any antipsychotic medication. Will resubmit request for involuntary medications. 08/30/17 22:14 Psychosis: REmains psychotic. CCM. Applied for COM 08/31/17 14:02 Psychosis: Unchanged. CCM. 09/01/17 15:04 Psychosis: Remains gravely disabled and danger to others due to lack of insight into nature or severity of his illness. Will CCM. See COM inc: [facility]. Will change to alternative AED. 09/02/17 14:52 Psychosis: Calm and coop. Agrees to take Latuda. Will proceed with this while waiting for COM hearing. The risks, benefits and alternatives of Latuday are discussed with pt. 09/03/17 14:37 1. Patient switched from Lamictal to Keppra this week for seizures d/t rash. 2. Patient agreed to take Latuda last night, but tells MD he "thought I was going to ." Patient says he felt a "negative void" in his chest. He denies any kind of chest pain, and denies any physical reaction. He states it felt "like a 9.8" but doesn't say on what kind of scale. Patient denies stiffness, rigidity, slowing. There is no evidence of dystonia or abnormal involuntary movements. MD encourages patient to try medication again and give it sufficient time to demonstrate benefits, but patient says "no way." 3. Dr. Chong, a court appointed forensic psychiatrist, completed a capacity evaluation on behalf of [facility] where patient has a reckless driving charge from 02/2017. Documentation from [facility] was placed in the patient's chart. 4. [employer] petition pending. 09/04/17 13:59 1. Patient more irritable, especially when discussing meds with MD. He also appears more illogical and confused. 2. Patient refused Latuda last night and told peer, "don't take anything they give you here." He also refused Zoloft this AM, but later asked MD to "increase my dose of Zoloft." MD reminded patient he had refused AM dose, he said he wanted to "save it up" but couldn't explain why. MD told patient that it was too soon to increase dose and that he needed to take it at regular times to maintain its effectiveness. Patient said, "that's not how it works" and got agitated and walked away. 3. Patient slept 11 hrs last night, did not get up for breakfast. Staff report he was pacing the halls c/o "I'm gonna ..." apparently b/c he thought Latuda he took the prior evening was harming him. Subjective: Met with patient, reviewed chart and d/w staff. Patient more irritable, especially when discussing meds with MD. He also appears more illogical and confused. Patient refused Latuda last night and told peer, "don't take anything they give you here." He also refused Zoloft this AM, but later asked MD to "increase my dose of Zoloft." MD reminded patient he had refused AM dose, he said he wanted to "save it up" but couldn't explain why. MD told patient that it was too soon to increase dose and that he needed to take it at regular times to maintain its effectiveness. Patient said, "that's not how it works" and got agitated and walked away. Patient slept 11 hrs last night, did not get up for breakfast. Staff report he was pacing the halls c/o "I'm gonna ..." apparently b/c he thought Latuda he took the prior evening was harming him. Objective: Vital Signs Temp Pulse Resp BP Pulse Ox 37.1 C 96 12 106/68 97 08/21/17 20:52 08/21/17 20:52 08/21/17 20:52 08/21/17 20:52 08/21/17 20:52 MSE: Affect: Irritable Mood: "OK" TP: Disorganized, illogical TC: Paranoid, delusional, denies any AH/VH Insight/Judgment: Impaired - Time Spent With Patient Time Spent With Patient: 20" - Pending Discharge Pending Discharge Within 24 Hours: No Pending Discharge Within 48 Hours: No ICD10 Worksheet Patient Problems: Problems Problem Status Onset Cannabis abuse, daily use Acute Schizophrenia, chronic condition with acute exacerbation Acute Seizure Acute Seizure disorder Acute Tongue laceration Acute
[2017-09-04] MEDS: CHLORHEXIDINE GLUCONATE 15 ML UDL PO SCH ×2 (15:51→22:13)
[2017-09-04] MEDS: LURASIDONE HCL 40 MG TAB PO SCH (19:12)
[2017-09-05] MEDS: SERTRALINE HCL 50 MG TAB PO SCH (12:42)
[2017-09-05] MEDS: levETIRAcetam 500 MG TAB PO SCH ×2 (12:42→20:47)
[2017-09-05] MEDS: TRIAMCINOLONE 0.1% 15 GM CRTUBE TP SCH ×3 (12:43→21:26)
[2017-09-05] MEDS: NYSTATIN POWDER 15 GM BTL TP SCH ×3 (12:43→21:26)
--- NOTE | 2017-09-05 13:28 | SOAPPROG ---
SOAP Progress Note Assessment/Plan: Assessment: Plan: 08/23/17 16:44 Psychosis: Remains paranoid, though in good behavioral control. Continues to refuse meds. COM hearing is 08/29/17. 08/24/17 14:25 Psychosis: Unchanged. He demonstrates exceedingly poor insight into the nature and severity of his mental and physical illnesses. He refuses to even take the mouth cleanser. Will continue to build a therapeutic alliance and hope to see him start Latuda on a voluntary basis. Not ideal due to lack of a [facility], but could help with acute stabilization at least. COM hearing next week. 08/25/17 16:02 Psychosis: Calm and coop. Will proceed as above, cancel COM hearing. 08/26/17 15:58 Psychosis: No change. Behaviorally stable. CCM. Continue d/c planning. 08/29/17 17:49 Psychosis: More disruptive. He continues to lack meaningful insight into his illness or the need for treatment. He continues to refuse any antipsychotic medication. Will resubmit request for involuntary medications. 08/30/17 22:14 Psychosis: REmains psychotic. CCM. Applied for COM 08/31/17 14:02 Psychosis: Unchanged. CCM. 09/01/17 15:04 Psychosis: Remains gravely disabled and danger to others due to lack of insight into nature or severity of his illness. Will [facility]. See [facility] inc: [facility]. Will change to alternative AED. 09/02/17 14:52 Psychosis: Calm and coop. Agrees to take Latuda. Will proceed with this while waiting for COM hearing. The risks, benefits and alternatives of Latuday are discussed with pt. 09/05/17 13:28 Psychosis: Refuses Latuda due to delusional belief that it causes sudden depression. Will [facility], increase Zoloft to 100mg daily per pt request to address mood. Await COM hearing. Subjective: Pt seen, discussed with staff. Reports feeling "fine." Took one dose of Latuda and c/o "dying inside." He states he experienced "the worst feelings of depression and anxiety ever in my chest." [He points to his mid-sternal area.] He states this is exactly the same as "every other antipsychotic medication I have taken." He states he will not take any more Latuda or any other antipsychotic. I discussed with him my plan to seek [facility], specifically a [facility]. He was noted to be more disorganized, paranoid, demanding and disruptive over the weekend. Continues to campaign on unit for others to refuse their medications. He apparently received a competency evaluation over the weekend but we did not receive a copy. Objective: Vital Signs Temp Pulse Resp BP Pulse Ox 37.1 C 96 12 106/68 97 08/21/17 20:52 08/21/17 20:52 08/21/17 20:52 08/21/17 20:52 08/21/17 20:52 MSE: Calm, interactive. Affect is euthymic, stable, approp. Mood is "better now." TP is poorly organized. TC reveals paranoid thoughts, poor reality testing, possible somatic delusions. - Time Spent With Patient Time Spent With Patient: 25" ICD10 Worksheet Patient Problems: Problems Problem Status Onset Cannabis abuse, daily use Acute Schizophrenia, chronic condition with acute exacerbation Acute Seizure Acute Seizure disorder Acute Tongue laceration Acute
[2017-09-05] MEDS: CHLORHEXIDINE GLUCONATE 15 ML UDL PO SCH ×2 (13:52→22:27)
[2017-09-06] MEDS: levETIRAcetam 500 MG TAB PO SCH ×2 (11:11→20:53)
[2017-09-06] MEDS: CHLORHEXIDINE GLUCONATE 15 ML UDL PO SCH ×2 (11:12→21:03)
[2017-09-06] MEDS: NYSTATIN POWDER 15 GM BTL TP SCH ×2 (11:12→15:23)
[2017-09-06] MEDS: TRIAMCINOLONE 0.1% 15 GM CRTUBE TP SCH ×2 (11:12→15:23)
[2017-09-06] MEDS: SERTRALINE HCL 50 MG TAB PO SCH (11:12)
--- NOTE | 2017-09-06 14:03 | SOAPPROG ---
SOAP Progress Note Assessment/Plan: Assessment: Plan: 08/23/17 16:44 Psychosis: Remains paranoid, though in good behavioral control. Continues to refuse meds. COM hearing is 08/29/17. 08/24/17 14:25 Psychosis: Unchanged. He demonstrates exceedingly poor insight into the nature and severity of his mental and physical illnesses. He refuses to even take the mouth cleanser. Will continue to build a therapeutic alliance and hope to see him start Latuda on a voluntary basis. Not ideal due to lack of a [facility], but could help with acute stabilization at least. COM hearing next week. 08/25/17 16:02 Psychosis: Calm and coop. Will proceed as above, cancel COM hearing. 08/26/17 15:58 Psychosis: No change. Behaviorally stable. CCM. Continue d/c planning. 08/29/17 17:49 Psychosis: More disruptive. He continues to lack meaningful insight into his illness or the need for treatment. He continues to refuse any antipsychotic medication. Will resubmit request for involuntary medications. 08/30/17 22:14 Psychosis: REmains psychotic. CCM. Applied for COM 08/31/17 14:02 Psychosis: Unchanged. CCM. 09/01/17 15:04 Psychosis: Remains gravely disabled and danger to others due to lack of insight into nature or severity of his illness. Will CCM. See [facility] inc: [facility]. Will change to alternative AED. 09/02/17 14:52 Psychosis: Calm and coop. Agrees to take Latuda. Will proceed with this while waiting for COM hearing. The risks, benefits and alternatives of Latuday are discussed with pt. 09/05/17 13:28 Psychosis: Refuses Latuda due to delusional belief that it causes sudden depression. Will [facility], increase Zoloft to 100mg daily per pt request to address mood. Await COM hearing. 09/06/17 14:03 Psychosis: No change. Await court hearing for [employer]. Subjective: Pt seen, discussed with staff. Got up this morning but went back to bed before eating breakfast. Non-conversant with me, lying in bed. Objective: Vital Signs Temp Pulse Resp BP Pulse Ox 37.1 C 96 12 106/68 97 08/21/17 20:52 08/21/17 20:52 08/21/17 20:52 08/21/17 20:52 08/21/17 20:52 MSE: Lying in bed. Poorly groomed, malodorous. Affect is blunted, stable. - Time Spent With Patient Time Spent With Patient: 15" ICD10 Worksheet Patient Problems: Problems Problem Status Onset Cannabis abuse, daily use Acute Schizophrenia, chronic condition with acute exacerbation Acute Seizure Acute Seizure disorder Acute Tongue laceration Acute
[2017-09-07] MEDS: levETIRAcetam 500 MG TAB PO SCH ×2 (08:45→21:58)
[2017-09-07] MEDS: CHLORHEXIDINE GLUCONATE 15 ML UDL PO SCH ×3 (08:45→21:58)
[2017-09-07] MEDS: SERTRALINE HCL 50 MG TAB PO SCH (08:45)
[2017-09-07] MEDS: TRIAMCINOLONE 0.1% 15 GM CRTUBE TP SCH ×3 (08:49→21:55)
[2017-09-07] MEDS: NYSTATIN POWDER 15 GM BTL TP SCH ×3 (08:49→21:55)
--- NOTE | 2017-09-07 16:45 | SOAPPROG ---
SOAP Progress Note Assessment/Plan: Assessment: Plan: 08/23/17 16:44 Psychosis: Remains paranoid, though in good behavioral control. Continues to refuse meds. COM hearing is 08/29/17. 08/24/17 14:25 Psychosis: Unchanged. He demonstrates exceedingly poor insight into the nature and severity of his mental and physical illnesses. He refuses to even take the mouth cleanser. Will continue to build a therapeutic alliance and hope to see him start Latuda on a voluntary basis. Not ideal due to lack of a [facility], but could help with acute stabilization at least. COM hearing next week. 08/25/17 16:02 Psychosis: Calm and coop. Will proceed as above, cancel COM hearing. 08/26/17 15:58 Psychosis: No change. Behaviorally stable. CCM. Continue d/c planning. 08/29/17 17:49 Psychosis: More disruptive. He continues to lack meaningful insight into his illness or the need for treatment. He continues to refuse any antipsychotic medication. Will resubmit request for involuntary medications. 08/30/17 22:14 Psychosis: REmains psychotic. CCM. Applied for COM 08/31/17 14:02 Psychosis: Unchanged. CCM. 09/01/17 15:04 Psychosis: Remains gravely disabled and danger to others due to lack of insight into nature or severity of his illness. Will [facility]CM. See [facility] inc: [facility]. Will change to alternative AED. 09/02/17 14:52 Psychosis: Calm and coop. Agrees to take Latuda. Will proceed with this while waiting for COM hearing. The risks, benefits and alternatives of Latuday are discussed with pt. 09/05/17 13:28 Psychosis: Refuses Latuda due to delusional belief that it causes sudden depression. Will [facility], increase Zoloft to 100mg daily per pt request to address mood. Await COM hearing. 09/06/17 14:03 Psychosis: No change. Await court hearing for COM. 09/07/17 16:45 Psychosis: No change. CCM. Subjective: Pt seen, discussed with staff. Actually asked to talk to me. Continues to state his parents agree that he doesn't need to take meds and that he is doing well. He also continues to refuse to consider antipsychotic medications believing they are harmful to him. He requests that Zoloft dose be split because he believes "they wear off." Objective: Vital Signs Temp Pulse Resp BP Pulse Ox 37.1 C 96 12 106/68 97 08/21/17 20:52 08/21/17 20:52 08/21/17 20:52 08/21/17 20:52 08/21/17 20:52 MSE: Calm, coop., appropriately interactive. Affect is slightly blunted, stable. Mood is "good." TP generally linear. TC reveals ongoing paranoid thoughts. Denies AH's. - Time Spent With Patient Time Spent With Patient: 25" ICD10 Worksheet Patient Problems: Problems Problem Status Onset Cannabis abuse, daily use Acute Schizophrenia, chronic condition with acute exacerbation Acute Seizure Acute Seizure disorder Acute Tongue laceration Acute
[2017-09-08] MEDS: SERTRALINE HCL 50 MG TAB PO SCH (09:27)
[2017-09-08] MEDS: levETIRAcetam 500 MG TAB PO SCH ×2 (09:27→21:26)
[2017-09-08] MEDS: NYSTATIN POWDER 15 GM BTL TP SCH (09:29)
[2017-09-08] MEDS: TRIAMCINOLONE 0.1% 15 GM CRTUBE TP SCH (09:29)
[2017-09-08] MEDS: CHLORHEXIDINE GLUCONATE 15 ML UDL PO SCH (09:29)
--- NOTE | 2017-09-08 16:09 | SOAPPROG ---
SOAP Progress Note Assessment/Plan: Assessment: Plan: 08/23/17 16:44 Psychosis: Remains paranoid, though in good behavioral control. Continues to refuse meds. COM hearing is 08/29/17. 08/24/17 14:25 Psychosis: Unchanged. He demonstrates exceedingly poor insight into the nature and severity of his mental and physical illnesses. He refuses to even take the mouth cleanser. Will continue to build a therapeutic alliance and hope to see him start Latuda on a voluntary basis. Not ideal due to lack of a [facility], but could help with acute stabilization at least. COM hearing next week. 08/25/17 16:02 Psychosis: Calm and coop. Will proceed as above, cancel COM hearing. 08/26/17 15:58 Psychosis: No change. Behaviorally stable. CCM. Continue d/c planning. 08/29/17 17:49 Psychosis: More disruptive. He continues to lack meaningful insight into his illness or the need for treatment. He continues to refuse any antipsychotic medication. Will resubmit request for involuntary medications. 08/30/17 22:14 Psychosis: REmains psychotic. CCM. Applied for COM 08/31/17 14:02 Psychosis: Unchanged. CCM. 09/01/17 15:04 Psychosis: Remains gravely disabled and danger to others due to lack of insight into nature or severity of his illness. Will [facility]. See [facility] inc: [facility]. Will change to alternative AED. 09/02/17 14:52 Psychosis: Calm and coop. Agrees to take Latuda. Will proceed with this while waiting for COM hearing. The risks, benefits and alternatives of Latuday are discussed with pt. 09/05/17 13:28 Psychosis: Refuses Latuda due to delusional belief that it causes sudden depression. Will [facility], increase Zoloft to 100mg daily per pt request to address mood. Await COM hearing. 09/06/17 14:03 Psychosis: No change. Await court hearing for COM. 09/07/17 16:45 Psychosis: No change. CCM. 09/08/17 16:11 Psychosis: Remains generally stable. All prefer to pursue residential treatment and not pursue involuntary medications. I reemphasized to all the risks in not taking antipsychotic medications for someone with schizophrenia as this can lead to relapse and then possible permanent decline in cognitive functioning. I agreed that his case is atypical with seeming resolution of sx' s without antipsychotic medications. This casts some doubt on primary dx and makes the cannabis a more likely factor. Will notify the court to cancel hearing. Will work with family to formulate d/c plan. Subjective: Pt seen, discussed with staff. Reports feeling "normal." Denies any acute symptoms inc: AH's, delusions/paranoia. Family meeting held with pt, M, F, CC and myself. All agreed that he looks much better. M stated that she hasn't seen him without obvious evidence of psychosis since his first break. She states he wrote her a note for Mother's Day and that it was the first coherent writing she has seen in years. She and F agree that they prefer he remain off of antipsychotic medications for as long as possible. They discuss possible discharge plans with pt who agrees rather easily to going to a residential program, [place] of state. They all agree not to pursue involuntary antipsychotic medications to allow for transition to the program. Objective: Vital Signs Temp Pulse Resp BP Pulse Ox 37.1 C 96 12 106/68 97 08/21/17 20:52 08/21/17 20:52 08/21/17 20:52 08/21/17 20:52 08/21/17 20:52 MSE: Calm, coop. Adequately groomed. Affect is euthymic, stable, approp. Mood is "good." TP generally linear, goal-directed. TC reveals no evidence of paranoia (does not become angry or accusatory with parents) or hallucinations. pt denies SI/HI/. - Time Spent With Patient Time Spent With Patient: 35" ICD10 Worksheet Patient Problems: Problems Problem Status Onset Cannabis abuse, daily use Acute Schizophrenia, chronic condition with acute exacerbation Acute Seizure Acute Seizure disorder Acute Tongue laceration Acute
[2017-09-09] MEDS: levETIRAcetam 500 MG TAB PO SCH ×2 (08:56→20:11)
[2017-09-09] MEDS: SERTRALINE HCL 50 MG TAB PO SCH ×2 (08:56→20:11)
--- NOTE | 2017-09-09 16:54 | SOAPPROG ---
SOAP Progress Note Assessment/Plan: Assessment: Plan: 08/23/17 16:44 Psychosis: Remains paranoid, though in good behavioral control. Continues to refuse meds. COM hearing is 08/29/17. 08/24/17 14:25 Psychosis: Unchanged. He demonstrates exceedingly poor insight into the nature and severity of his mental and physical illnesses. He refuses to even take the mouth cleanser. Will continue to build a therapeutic alliance and hope to see him start Latuda on a voluntary basis. Not ideal due to lack of a [facility], but could help with acute stabilization at least. COM hearing next week. 08/25/17 16:02 Psychosis: Calm and coop. Will proceed as above, cancel COM hearing. 08/26/17 15:58 Psychosis: No change. Behaviorally stable. CCM. Continue d/c planning. 08/29/17 17:49 Psychosis: More disruptive. He continues to lack meaningful insight into his illness or the need for treatment. He continues to refuse any antipsychotic medication. Will resubmit request for involuntary medications. 08/30/17 22:14 Psychosis: REmains psychotic. CCM. Applied for COM 08/31/17 14:02 Psychosis: Unchanged. CCM. 09/01/17 15:04 Psychosis: Remains gravely disabled and danger to others due to lack of insight into nature or severity of his illness. Will [facility]. See [facility] inc: [facility]. Will change to alternative AED. 09/02/17 14:52 Psychosis: Calm and coop. Agrees to take Latuda. Will proceed with this while waiting for COM hearing. The risks, benefits and alternatives of Latuday are discussed with pt. 09/05/17 13:28 Psychosis: Refuses Latuda due to delusional belief that it causes sudden depression. Will [facility], increase Zoloft to 100mg daily per pt request to address mood. Await COM hearing. 09/06/17 14:03 Psychosis: No change. Await court hearing for COM. 09/07/17 16:45 Psychosis: No change. CCM. 09/08/17 16:11 Psychosis: Remains generally stable. All prefer to pursue residential treatment and not pursue involuntary medications. I reemphasized to all the risks in not taking antipsychotic medications for someone with schizophrenia as this can lead to relapse and then possible permanent decline in cognitive functioning. I agreed that his case is atypical with seeming resolution of sx' s without antipsychotic medications. This casts some doubt on primary dx and makes the cannabis a more likely factor. Will notify the court to cancel hearing. Will work with family to formulate d/c plan. 09/09/17 16:54 Psychosis: No change clinically. Mother is going to investigate [facility] program. I recommended [facility] also. Subjective: Pt seen, discussed with staff. Reports feeling "fine." Sitting with his mother eating plain white rice and playing Scrabble. I showed him the website for [facility]. He and mother both seem to like it. Objective: Vital Signs Temp Pulse Resp BP Pulse Ox 37.1 C 96 12 106/68 97 08/21/17 20:52 08/21/17 20:52 08/21/17 20:52 08/21/17 20:52 08/21/17 20:52 MSE: Calm, coop. Affect is euthymic, slightly delayed/blunted. TP is generally linear. TC reveals no evidence of paranoia or halluc's. ICD10 Worksheet Patient Problems: Problems Problem Status Onset Cannabis abuse, daily use Acute Schizophrenia, chronic condition with acute exacerbation Acute Seizure Acute Seizure disorder Acute Tongue laceration Acute
[2017-09-09] MEDS: CHLORHEXIDINE GLUCONATE 15 ML UDL PO SCH (20:12)
[2017-09-10] MEDS: SERTRALINE HCL 50 MG TAB PO SCH ×2 (08:27→19:30)
[2017-09-10] MEDS: CHLORHEXIDINE GLUCONATE 15 ML UDL PO SCH ×2 (08:27→21:10)
[2017-09-10] MEDS: levETIRAcetam 500 MG TAB PO SCH ×2 (08:27→19:30)
--- NOTE | 2017-09-10 12:49 | SOAPPROG ---
SOAP Progress Note Assessment/Plan: Assessment: 27yo CM with Schizophrenia and THC use d/o 09/10/17 13:05 slept 7hr. staff report he had agreed to go to treatment center and so court hearing canceled, but now changed his mind Pt was playing game at table after lunch, interacting with family, peers. reports no physical complaints, and denied any med s/e. Only taking zoloft, and would like to take it earlier in the evening. Otherwise states mood is "fine", affect restricted, denied any psychotic sxs and did not clearly appear to be responding to internal stim. brief linear responses. refuses to take any other psychotropic meds regardless. PLAN: continue Zoloft encourage pt to remain compliant with plan for treatment regarding follow-up Objective: Vital Signs Temp Pulse Resp BP Pulse Ox 37.1 C 96 12 106/68 97 08/21/17 20:52 08/21/17 20:52 08/21/17 20:52 08/21/17 20:52 08/21/17 20:52 - Time Spent With Patient Time Spent With Patient: 10min - Pending Discharge Pending Discharge Within 24 Hours: No Pending Discharge Within 48 Hours: No ICD10 Worksheet Patient Problems: Problems Problem Status Onset Cannabis abuse, daily use Acute Schizophrenia, chronic condition with acute exacerbation Acute Seizure Acute Seizure disorder Acute Tongue laceration Acute
[2017-09-11] MEDS: CHLORHEXIDINE GLUCONATE 15 ML UDL PO SCH ×3 (03:03→18:48)
[2017-09-11] MEDS: levETIRAcetam 500 MG TAB PO SCH ×2 (08:39→18:48)
[2017-09-11] MEDS: SERTRALINE HCL 50 MG TAB PO SCH ×2 (08:39→18:48)
--- NOTE | 2017-09-11 23:28 | SOAPPROG ---
SOAP Progress Note Assessment/Plan: Assessment: 27yo CM with Schizophrenia and THC use d/o 09/10/17 13:05 slept 7hr. staff report he had agreed to go to treatment center and so court hearing canceled, but now changed his mind Pt was playing game at table after lunch, interacting with family, peers. reports no physical complaints, and denied any med s/e. Only taking zoloft, and would like to take it earlier in the evening. Otherwise states mood is "fine", affect restricted, denied any psychotic sxs and did not clearly appear to be responding to internal stim. brief linear responses. refuses to take any other psychotropic meds regardless. PLAN: continue Zoloft encourage pt to remain compliant with plan for treatment regarding follow-up 09/11/17 15:21 per staff, slept 8hr. has been med-compliant and attending groups. refusing VS check b/c "bureaucratic" demand. Telling staff he now wants to live with a friend in [place], not sure if will attend counseling or dual dx program after d/ c, and then even asked F to bring him a tent and sleeping bag so he could live outdoors. on eval, pt reports plan is to continue taking only Zoloft and his seizure medication (Keppra). Feels Zoloft is helping "about 90%" with his depression and anger, but also believes it is because he stopped taking any IM psychotropics denied sleep disturbance. Had visitors today. reports mood is "a little angry...but also good" and that his sleep was "fine" last night, but sleep "depends on my attitude." Reports in past other meds like Latuda made him feel "a negative 10... like my appendix was taken out..." , and believes he is doing better now b/c off Invega IM x 6 months and it's "still washing out", regardless of what others say. Will only take zoloft in divided dose. Asks for increase. MSE: cooperative, in hosp gowns, fair EC, long blonde dreads. seemed with nml psychom activity. speech nml/low volume, nml rate, not pressured. brief goal- directed responses. seemed Did not appear responding to Denied any SI or thoughts to harm others. Denied any AH/VH. i/j impaired/poor PLAN: cont zoloft, no increase. prefers BID and 2nd dose closer to dinnertime around 5p court apparently was canceled with pt agreeing to certain f/u plan but pt now changing his mind. cont keppra Objective: Vital Signs Temp Pulse Resp BP Pulse Ox 37.1 C 96 12 106/68 97 08/21/17 20:52 08/21/17 20:52 08/21/17 20:52 08/21/17 20:52 08/21/17 20:52 - Time Spent With Patient Time Spent With Patient: 15min - Pending Discharge Pending Discharge Within 24 Hours: No Pending Discharge Within 48 Hours: No ICD10 Worksheet Patient Problems: Problems Problem Status Onset Cannabis abuse, daily use Acute Schizophrenia, chronic condition with acute exacerbation Acute Seizure Acute Seizure disorder Acute Tongue laceration Acute
[2017-09-12] MEDS: levETIRAcetam 500 MG TAB PO SCH ×2 (08:42→22:07)
[2017-09-12] MEDS: CHLORHEXIDINE GLUCONATE 15 ML UDL PO SCH ×3 (08:42→22:16)
[2017-09-12] MEDS: SERTRALINE HCL 50 MG TAB PO SCH ×2 (08:42→22:07)
--- NOTE | 2017-09-12 16:41 | SOAPPROG ---
SOAP Progress Note Assessment/Plan: Assessment: Plan: 08/23/17 16:44 Psychosis: Remains paranoid, though in good behavioral control. Continues to refuse meds. COM hearing is 08/29/17. 08/24/17 14:25 Psychosis: Unchanged. He demonstrates exceedingly poor insight into the nature and severity of his mental and physical illnesses. He refuses to even take the mouth cleanser. Will continue to build a therapeutic alliance and hope to see him start Latuda on a voluntary basis. Not ideal due to lack of a [facility], but could help with acute stabilization at least. COM hearing next week. 08/25/17 16:02 Psychosis: Calm and coop. Will proceed as above, cancel COM hearing. 08/26/17 15:58 Psychosis: No change. Behaviorally stable. CCM. Continue d/c planning. 08/29/17 17:49 Psychosis: More disruptive. He continues to lack meaningful insight into his illness or the need for treatment. He continues to refuse any antipsychotic medication. Will resubmit request for involuntary medications. 08/30/17 22:14 Psychosis: REmains psychotic. CCM. Applied for COM 08/31/17 14:02 Psychosis: Unchanged. CCM. 09/01/17 15:04 Psychosis: Remains gravely disabled and danger to others due to lack of insight into nature or severity of his illness. Will [facility]. See [facility]: [facility]. Will change to alternative AED. 09/02/17 14:52 Psychosis: Calm and coop. Agrees to take Latuda. Will proceed with this while waiting for COM hearing. The risks, benefits and alternatives of Latuday are discussed with pt. 09/05/17 13:28 Psychosis: Refuses Latuda due to delusional belief that it causes sudden depression. Will [facility], increase Zoloft to 100mg daily per pt request to address mood. Await COM hearing. 09/06/17 14:03 Psychosis: No change. Await court hearing for COM. 09/07/17 16:45 Psychosis: No change. CCM. 09/08/17 16:11 Psychosis: Remains generally stable. All prefer to pursue residential treatment and not pursue involuntary medications. I reemphasized to all the risks in not taking antipsychotic medications for someone with schizophrenia as this can lead to relapse and then possible permanent decline in cognitive functioning. I agreed that his case is atypical with seeming resolution of sx' s without antipsychotic medications. This casts some doubt on primary dx and makes the cannabis a more likely factor. Will notify the court to cancel hearing. Will work with family to formulate d/c plan. 09/09/17 16:54 Psychosis: No change clinically. Mother is going to investigate [facility] program. I recommended Orest[facility] Richards also. 09/12/17 16:42 Psychosis: Continues to do generally well. I will inform pt's parents of his refusal to go to residential treatment. We will then make referral to [facility]'s and proceed with d/c. Despite absent insight into his illness and poor judgement, he is no longer meeting criteria for certification. Subjective: Pt seen, discussed with staff, chart reviewed. He reports feeling "just fine." Cheerful and friendly, engaging. States he has changed his mind and wants to be discharged to the street now. Asks for a tent and a sleeping bag. I appealed to him to consider going to a residential program to seek more lasting stability and a safe environment and also to foster trust with his parents. I also mentioned that the court would view this favorably in his current criminal case. He states he doesn't care about these things and states, "I just want to live my life. [facility] Objective: Vital Signs Temp Pulse Resp BP Pulse Ox 37.1 C 96 12 106/68 97 08/21/17 20:52 08/21/17 20:52 08/21/17 20:52 08/21/17 20:52 08/21/17 20:52 MSE: Marginally groomed, coop. Affect is euthymic, stable, approp. Mood is "good." TP linear. TC reveals no evidence of delusional processes or hallucinations. - Time Spent With Patient Time Spent With Patient: 25" ICD10 Worksheet Patient Problems: Problems Problem Status Onset Cannabis abuse, daily use Acute Schizophrenia, chronic condition with acute exacerbation Acute Seizure Acute Seizure disorder Acute Tongue laceration Acute
[2017-09-13] MEDS: levETIRAcetam 500 MG TAB PO SCH ×2 (08:15→18:50)
[2017-09-13] MEDS: SERTRALINE HCL 50 MG TAB PO SCH ×2 (08:15→18:50)
[2017-09-13] MEDS: CHLORHEXIDINE GLUCONATE 15 ML UDL PO SCH ×2 (11:00→18:53)
--- NOTE | 2017-09-13 14:12 | SOAPPROG ---
SOAP Progress Note Assessment/Plan: Assessment: Plan: 08/23/17 16:44 Psychosis: Remains paranoid, though in good behavioral control. Continues to refuse meds. COM hearing is 08/29/17. 08/24/17 14:25 Psychosis: Unchanged. He demonstrates exceedingly poor insight into the nature and severity of his mental and physical illnesses. He refuses to even take the mouth cleanser. Will continue to build a therapeutic alliance and hope to see him start Latuda on a voluntary basis. Not ideal due to lack of a [facility], but could help with acute stabilization at least. COM hearing next week. 08/25/17 16:02 Psychosis: Calm and coop. Will proceed as above, cancel COM hearing. 08/26/17 15:58 Psychosis: No change. Behaviorally stable. CCM. Continue d/c planning. 08/29/17 17:49 Psychosis: More disruptive. He continues to lack meaningful insight into his illness or the need for treatment. He continues to refuse any antipsychotic medication. Will resubmit request for involuntary medications. 08/30/17 22:14 Psychosis: REmains psychotic. CCM. Applied for COM 08/31/17 14:02 Psychosis: Unchanged. CCM. 09/01/17 15:04 Psychosis: Remains gravely disabled and danger to others due to lack of insight into nature or severity of his illness. Will [facility]. See [facility]: [facility]. Will change to alternative AED. 09/02/17 14:52 Psychosis: Calm and coop. Agrees to take Latuda. Will proceed with this while waiting for COM hearing. The risks, benefits and alternatives of Latuday are discussed with pt. 09/05/17 13:28 Psychosis: Refuses Latuda due to delusional belief that it causes sudden depression. Will [facility], increase Zoloft to 100mg daily per pt request to address mood. Await COM hearing. 09/06/17 14:03 Psychosis: No change. Await court hearing for COM. 09/07/17 16:45 Psychosis: No change. CCM. 09/08/17 16:11 Psychosis: Remains generally stable. All prefer to pursue residential treatment and not pursue involuntary medications. I reemphasized to all the risks in not taking antipsychotic medications for someone with schizophrenia as this can lead to relapse and then possible permanent decline in cognitive functioning. I agreed that his case is atypical with seeming resolution of sx' s without antipsychotic medications. This casts some doubt on primary dx and makes the cannabis a more likely factor. Will notify the court to cancel hearing. Will work with family to formulate d/c plan. 09/09/17 16:54 Psychosis: No change clinically. Mother is going to investigate [facility] program. I recommended [facility] Richards also. 09/12/17 16:42 Psychosis: Continues to do generally well. I will inform pt's parents of his refusal to go to residential treatment. We will then make referral to [facility]'s and proceed with d/c. Despite absent insight into his illness and poor judgement, he is no longer meeting criteria for certification. 09/13/17 14:13 Psychosis: No change in clinical condition. Family needs to meet with him and decide on d/c plan. Subjective: Pt seen, discussed with staff. Reports feeling "normal." Behaviors are stable. He continues to request d/c to the street. I called pt's father but did not get him. CC reports parents have found a residential dual diagnosis program in [place] they would like him to attend. Pt reports not being interested in this. Objective: Vital Signs Temp Pulse Resp BP Pulse Ox 37.1 C 96 12 106/68 97 08/21/17 20:52 08/21/17 20:52 08/21/17 20:52 08/21/17 20:52 08/21/17 20:52 MSE: Calm, coop. Affect is euthymic, stable, approp. Mood is "good." TP linear. TC reveals no obvious psychosis. A&Ox4, sensorium is clear. Denies SI/ HI/. - Time Spent With Patient Time Spent With Patient: 15" ICD10 Worksheet Patient Problems: Problems Problem Status Onset Cannabis abuse, daily use Acute Schizophrenia, chronic condition with acute exacerbation Acute Seizure Acute Seizure disorder Acute Tongue laceration Acute
[2017-09-14] MEDS: SERTRALINE HCL 50 MG TAB PO SCH (09:24)
[2017-09-14] MEDS: levETIRAcetam 500 MG TAB PO SCH ×2 (09:24→19:17)
[2017-09-14] MEDS: CHLORHEXIDINE GLUCONATE 15 ML UDL PO SCH ×2 (11:18→19:18)
--- NOTE | 2017-09-14 13:33 | SOAPPROG ---
SOAP Progress Note Assessment/Plan: Assessment: Plan: 08/23/17 16:44 Psychosis: Remains paranoid, though in good behavioral control. Continues to refuse meds. COM hearing is 08/29/17. 08/24/17 14:25 Psychosis: Unchanged. He demonstrates exceedingly poor insight into the nature and severity of his mental and physical illnesses. He refuses to even take the mouth cleanser. Will continue to build a therapeutic alliance and hope to see him start Latuda on a voluntary basis. Not ideal due to lack of a [facility], but could help with acute stabilization at least. COM hearing next week. 08/25/17 16:02 Psychosis: Calm and coop. Will proceed as above, cancel COM hearing. 08/26/17 15:58 Psychosis: No change. Behaviorally stable. CCM. Continue d/c planning. 08/29/17 17:49 Psychosis: More disruptive. He continues to lack meaningful insight into his illness or the need for treatment. He continues to refuse any antipsychotic medication. Will resubmit request for involuntary medications. 08/30/17 22:14 Psychosis: REmains psychotic. CCM. Applied for COM 08/31/17 14:02 Psychosis: Unchanged. CCM. 09/01/17 15:04 Psychosis: Remains gravely disabled and danger to others due to lack of insight into nature or severity of his illness. Will [facility]. See [facility]: [facility]. Will change to alternative AED. 09/02/17 14:52 Psychosis: Calm and coop. Agrees to take Latuda. Will proceed with this while waiting for COM hearing. The risks, benefits and alternatives of Latuday are discussed with pt. 09/05/17 13:28 Psychosis: Refuses Latuda due to delusional belief that it causes sudden depression. Will [facility], increase Zoloft to 100mg daily per pt request to address mood. Await COM hearing. 09/06/17 14:03 Psychosis: No change. Await court hearing for COM. 09/07/17 16:45 Psychosis: No change. CCM. 09/08/17 16:11 Psychosis: Remains generally stable. All prefer to pursue residential treatment and not pursue involuntary medications. I reemphasized to all the risks in not taking antipsychotic medications for someone with schizophrenia as this can lead to relapse and then possible permanent decline in cognitive functioning. I agreed that his case is atypical with seeming resolution of sx' s without antipsychotic medications. This casts some doubt on primary dx and makes the cannabis a more likely factor. Will notify the court to cancel hearing. Will work with family to formulate d/c plan. 09/09/17 16:54 Psychosis: No change clinically. Mother is going to investigate [facility]. I recommended [facility] Richards also. 09/12/17 16:42 Psychosis: Continues to do generally well. I will inform pt's parents of his refusal to go to residential treatment. We will then make referral to [facility]'s and proceed with d/c. Despite absent insight into his illness and poor judgement, he is no longer meeting criteria for certification. 09/13/17 14:13 Psychosis: No change in clinical condition. Family needs to meet with him and decide on d/c plan. 09/14/17 13:34 Psychosis: Clinically stable. Will proceed with d/c tomorrow prior to scheduled f/u appt at [facility]'s at 0900. CC will escort him to the appt. Will increase sertraline to 150mg per pt request. Subjective: Pt seen, discussed with staff. He remains calm and cooperative. Attending groups and interacting appropriately with others. He continues to refuse to go to residential programs. Specifically refuses to go to program in [place] his mother found. I discussed my position in re: to d/c with pt's father via phone this morning. He presented a letter stating he was concerned that pt will relapse on MJ if d/c'd to the street and will ultimately decompensate. I agreed that this is a risk for him. I also discussed with him that pt is exhibiting no signs of acute mental illness at this time. He therefore does not meet criteria for ST and I cannot ethically or legally continue to hold him. He states that pt's mother wants to keep him indefinitely until he agrees to go to residential program, more or less "wait him out." She apparently called CC earlier today to voice her displeasure that we were unable to convince pt to go to a voluntary residential program. I explained that we have no possible authority to order him to a program out of state on a civil hold from [place]. I also reiterated to him that we could compel pt to go to [facility] the [facility]. He declines this. I connected pt's father to Wilbur Cosby via email to open a discussion about mental health resources in the community. Objective: Vital Signs Temp Pulse Resp BP Pulse Ox 37.1 C 96 12 106/68 97 08/21/17 20:52 08/21/17 20:52 08/21/17 20:52 08/21/17 20:52 08/21/17 20:52 MSE: Calm, coop. Affect is euthymic, stable, approp. Mood is "good." TP linear. TC reveals no psychosis. He denies any SI/HI/. - Time Spent With Patient Time Spent With Patient: 55" ICD10 Worksheet Patient Problems: Problems Problem Status Onset Cannabis abuse, daily use Acute Schizophrenia, chronic condition with acute exacerbation Acute Seizure Acute Seizure disorder Acute Tongue laceration Acute
[2017-09-14] MEDS ORDERED: SERTRALINE HCL 50 MG TAB PO SCH (18:00)
[2017-09-15] MEDS ORDERED: SERTRALINE HCL 100 MG TAB PO SCH (09:00)
[2017-09-15] MEDS: levETIRAcetam 500 MG TAB PO SCH (09:01)
[2017-09-15] MEDS: CHLORHEXIDINE GLUCONATE 15 ML UDL PO SCH (09:12)
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
== END 2017-09-15 09:12 | DRG 885 ==
LOC: BBEH 13:40 → UNDODISIN 08-21 02:45
PROVIDERS: ADMIT Psychiatry & Neurology Psychiatry; ATTEND Psychiatry & Neurology Psychiatry
DX: F20.0 Paranoid schizophrenia (principal); F12.90 Cannabis use, unspecified, uncomplicated; R56.9 Unspecified convulsions; Z91.128 Patient's intentional underdosing of medication regimen for other reason

== ENCOUNTER 2017-08-21 03:09 | Observation (INO) | payer MEDICAID ==
[2017-08-21] MEDS ORDERED: IBUPROFEN 600 MG TAB PO ONE ×2 (04:11→04:14)
--- NOTE | 2017-08-21 04:12 | EDPHY ---
H & P Stated Complaint: seizure Time Seen by Provider: 08/21/17 03:48 HPI/ROS: HPI The patient presents brought in by ambulance from [address] [place] [address] for seizure which occurred just prior to arrival. This seizure was witnessed, was tonic-clonic, the patient fell and hit his head, he bit his tongue. It lasted for several minutes and then afterwards the patient was quite sleepy. He currently has no complaints. He has a history of seizures and recalls 2 this year. He has been evaluated by Dr. Gillette for his seizures. He does not want to take any anti epileptic medications, however these have been offered to him. He believes his seizure has occurred because he is not using the large quantities of THC and CBD that he usually does as an outpatient. He says he has had seizures in the setting of lack of marijuana previously. He is also on antipsychotics currently while an inpatient. REVIEW OF SYSTEMS Constitutional: No fever, no chills. Eyes: No discharge. ENT: No sore throat. Cardiovascular: No chest pain, no palpitations. Respiratory: No cough, no shortness of breath. Gastrointestinal: No abdominal pain, no vomiting. Genitourinary: No hematuria. Musculoskeletal: No back pain. Skin: No rashes. Neurological: No headache. PMHx: Schizophrenia, epilepsy, not on medications Soc Hx: Currently admitted to [address] [place] [address] PHYSICAL General Appearance: Alert, no distress Eyes: Pupils equal and round no pallor or injection ENT, Mouth: Mucous membranes moist, 1 cm laceration of the superior right tongue Respiratory: There are no retractions, lungs are clear to auscultation Cardiovascular: Regular rate and rhythm Gastrointestinal: Abdomen is soft and non-tender, no masses, bowel sounds normal Neurological: A&O, cranial nerves 2-12 intact, 5/5 strength of upper and lower extremities which is symmetric Skin: Warm and dry, no rashes Musculoskeletal: Neck is supple non tender Extremities: symmetrical, full range of motion Psychiatric: Patient is oriented X 3, there is no agitation Source: Patient, EMS Exam Limitations: No limitations - Personal History Current Tetanus/Diphtheria Vaccine: Unsure Current Tetanus Diphtheria and Acellular Pertussis (TDAP): Unsure - Medical/Surgical History Hx Asthma: No Hx Chronic Respiratory Disease: No Hx Diabetes: No Hx Cardiac Disease: No Hx Renal Disease: No Hx Cirrhosis: No Hx Alcoholism: No Hx HIV/AIDS: No Hx Splenectomy or Spleen Trauma: No Other PMH: schizophrenia, appendectomy - Social History Smoking Status: Unknown if ever smoked Constitutional: Initial Vital Signs Temperature (C) 36.6 C 08/21/17 03:10 Heart Rate 103 H 08/21/17 03:10 Respiratory Rate 16 08/21/17 03:10 Blood Pressure 148/78 H 08/21/17 03:10 O2 Sat (%) 94 08/21/17 03:10 O2 Delivery Mode Room Air Allergies/Adverse Reactions: No Known Allergies Allergy (Unverified 10/31/14 21:26) Home Medications: Medication Instructions Recorded NK [No Known Home Meds] 10/29/14 Medical Decision Making Differential Diagnosis: This is a 27-year-old male with schizophrenia and epilepsy who presents brought in by ambulance for a seizure which occurred at [address] [place] [address] where he is an inpatient for mental health. He is currently taking antipsychotic medications. He has had an MRI of his brain which is normal. He has refused antiepileptic medications in the past and thus currently is not on any medications for seizure. On arrival, he is awake and alert. Physical exam reveals tongue laceration. This does not require suture repair. He declines any laboratory testing as he feels his seizure is due to lack of marijuana in his system and does not feel that blood test will be helpful. I do not think he needs a CT scan of his head is he has not sustained any significant head trauma and he has had recent normal MRI for his epilepsy. Because he declined laboratory testing I decided to observe him for several hours here. He did at about 3 hr into his stay have a tonic-clonic seizure lasting for about 1 min afterwards he was postictal. He bit his tongue again. He was given Ativan 2 mg IM though he was flailing during this time so there was concern that it was not administered. Thus he received a 2nd 2 mg of Ativan successfully IM. He agreed for IV placement and fluids were ordered. Unfortunately while he was still postictal he removed his IV line. Labs were checked though and did reveal anion gap acidosis which I suspect is a lactic acidosis due to his seizure. Given that this is his 2nd seizure I do think he needs to be admitted. I have discussed the case with Dr. Feliciano and he recommends Keppra loading dose which I have ordered for the patient. The patient will be admitted to the hospitalist service. Given that he is on a mental health hold he will need to go to the ICU for sitter. He is currently sedate. - Data Points Laboratory Results: Laboratory Results 08/21/17 06:30 08/21/17 06:30 08/21/17 08/21/17 06:30 06:30 WBC 9.30 10^3/uL 10^3/uL (3.80-9.50) RBC 5.70 10^6/uL 10^6/uL (4.40-6.38) Hgb 17.0 g/dL g/dL (13.7-17.5) Hct 48.0 % % (40.0-51.0) MCV 84.2 fL fL (81.5-99.8) MCH 29.8 pg pg (27.9-34.1) MCHC 35.4 g/dL g/dL (32.4-36.7) RDW 11.9 % % (11.5-15.2) Plt Count 201 10^3/uL 10^3/uL (150-400) MPV 10.0 fL fL (8.7-11.7) Neut % (Auto) 82.4 % H % (39.3-74.2) Lymph % (Auto) 9.8 % L % (15.0-45.0) [place] % (Auto) 6.2 % % (4.5-13.0) Eos % (Auto) 0.6 % % (0.6-7.6) Baso % (Auto) 0.6 % % (0.3-1.7) Nucleat RBC Rel Count 0.0 % % (0.0-0.2) Absolute Neuts (auto) 7.65 10^3/uL H 10^3/uL (1.70-6.50) Absolute Lymphs (auto) 0.91 10^3/uL L 10^3/uL (1.00-3.00) Absolute Monos (auto) 0.58 10^3/uL 10^3/uL (0.30-0.80) Absolute Eos (auto) 0.06 10^3/uL 10^3/uL (0.03-0.40) Absolute Basos (auto) 0.06 10^3/uL 10^3/uL (0.02-0.10) Absolute Nucleated RBC 0.00 10^3/uL 10^3/uL (0-0.01) Immature Gran % 0.4 % % (0.0-1.1) Immature Gran # 0.04 10^3/uL 10^3/uL (0.00-0.10) Sodium 141 mEq/L mEq/L (135-145) Potassium 4.0 mEq/L mEq/L (3.5-5.2) Chloride 106 mEq/L mEq/L (97-110) Carbon Dioxide 17 mEq/l L mEq/l (22-31) Anion Gap 18 mEq/L H mEq/L (8-16) BUN 14 mg/dL mg/dL (7-23) Creatinine 0.9 mg/dL mg/dL (0.7-1.3) Estimated GFR > 60 Glucose 107 mg/dL H mg/dL (70-100) Calcium 9.1 mg/dL mg/dL (8.5-10.4) Total Bilirubin 0.9 mg/dL mg/dL (0.1-1.4) AST 26 IU/L IU/L (17-59) ALT 30 IU/L IU/L (21-72) Alkaline Phosphatase 83 IU/L IU/L (38-126) Total Protein 7.0 g/dL g/dL (6.3-8.2) Albumin 4.3 g/dL g/dL (3.5-5.0) Medications Given: Discontinued Medications Levetiracetam (Keppra (Premix)) 100 mls @ 400 mls/hr IV EDNOW ONE Stop: 08/21/17 07:02 Last Admin: 08/21/17 07:27 Dose: 100 mls Ibuprofen (Motrin) 600 mg PO EDNOW ONE Stop: 08/21/17 04:15 Last Admin: 08/21/17 04:15 Dose: 600 mg Lorazepam (Ativan Injection) 4 mg IM EDNOW ONE Stop: 08/21/17 06:03 Last Admin: 08/21/17 06:03 Dose: 4 mg Departure - Departure Disposition: [facility] Acute Clinical Impression: Seizure disorder, Seizure, Tongue laceration, Schizophrenia, chronic condition with acute exacerbation Condition: Good
[2017-08-21] MEDS ORDERED: LORazepam 2 MG/ML INJ ONE ×2 (05:54→05:58)
[2017-08-21] MEDS ORDERED: LORazepam 2 MG/ML INJ IM ONE (06:02)
[2017-08-21 06:46] LABS: PLATELET COUNT 201 10^3/uL (150-400)
[2017-08-21] MEDS ORDERED: levETIRAcetam 1000MG/NACL 100 ML IV ONE (06:48)
[2017-08-21] MEDS ORDERED: ONDANSETRON DISINTEGRATING 4 MG TAB PO PRN (06:49)
[2017-08-21] MEDS ORDERED: ONDANSETRON 4 MG/2 ML VIAL IVP PRN (06:49)
[2017-08-21] MEDS ORDERED: ACETAMINOPHEN 325 MG TAB PO PRN (06:49)
--- NOTE | 2017-08-21 08:13 | PDGENHP ---
History and Physical - Chief Complaint Seizure - History of Present Illness 27 yo M w schizophrenia brought to ED from [facility] after a seizure. Patient has known seizure d/o but does not take medications. Per report , he uses marijuana to control his seizures. He had a seizure early this morning. Then, in the ED, he had another seizure about 3 hours later treated with Ativan. At the time of my evaluation he is sedated, likely post-ictal, and not cooperating with history. History Information - Allergies/Home Medication List Allergies/Adverse Reactions: No Known Allergies Allergy (Unverified 10/31/14 21:26) Home Medications: Acetaminophen [Tylenol 325mg (*)] 650 mg PO Q4 PRN 08/21/17 [Last Taken Unknown] LORazepam [Ativan (*)] 0.5 - 1 mg PO Q6 PRN 08/21/17 [Last Taken Unknown] Mag Hydrox/Aluminum Hyd/Simeth [Antacid Anti-Gas Liquid] 30 ml PO Q6 PRN [Last Taken Unknown] Magnesium Hydroxide [Milk of Magnesia] 30 ml PO DAILY PRN 08/21/17 [Last Taken Unknown] Nicotine Polacrilex [Nicotine Gum] 2 mg BC Q1H PRN 08/21/17 [Last Taken Unknown] OLANZapine [Olanzapine Odt] 5 mg PO Q4 PRN MDD 30mg 08/21/17 [Last Taken Unknown ] Paliperidone [Invega 3mg ER (*)] 3 mg PO HS 08/21/17 [Last Taken Unknown] I have personally reviewed and updated: family history, medical history - Past Medical History seizures - Surgical History Additional surgical history: Unable to obtain 2/2 mental status - Family History Additional family history: Unable to obtain 2/2 mental status - Social History Smoking Status: Unknown if ever smoked Review of Systems Review of Systems: ROS: 10pt was reviewed & negative except for what was stated in HPI & below Physical Exam Physical Exam: Temp Pulse Resp BP Pulse Ox 36.6 C 101 H 16 107/67 91 L 08/21/17 03:10 08/21/17 06:14 08/21/17 06:14 08/21/17 06:14 08/21/17 06:14 Constitutional: other (Sedated, sleeping) Eyes: PERRL, EOMI Ears, Nose, Mouth, Throat: moist mucous membranes, no oral mucosal ulcers Cardiovascular: regular rate and rhythym, no murmur, rub, or gallop Respiratory: no respiratory distress, clear to auscultation Gastrointestinal: normoactive bowel sounds, soft, non-tender abdomen Skin: warm, normal color Neurologic: other (Sedated, sleeping) Lab Data & Imaging Review 08/21/17 06:30 08/21/17 06:30 WBC 9.30 10^3/uL (3.80-9.50) 08/21/17 06:30 RBC 5.70 10^6/uL (4.40-6.38) 08/21/17 06:30 Hgb 17.0 g/dL (13.7-17.5) 08/21/17 06:30 Hct 48.0 % (40.0-51.0) 08/21/17 06:30 MCV 84.2 fL (81.5-99.8) 08/21/17 06:30 MCH 29.8 pg (27.9-34.1) 08/21/17 06:30 MCHC 35.4 g/dL (32.4-36.7) 08/21/17 06:30 RDW 11.9 % (11.5-15.2) 08/21/17 06:30 Plt Count 201 10^3/uL (150-400) 08/21/17 06:30 MPV 10.0 fL (8.7-11.7) 08/21/17 06:30 Neut % (Auto) 82.4 % (39.3-74.2) H 08/21/17 06:30 Lymph % (Auto) 9.8 % (15.0-45.0) L 08/21/17 06:30 [place] % (Auto) 6.2 % (4.5-13.0) 08/21/17 06:30 Eos % (Auto) 0.6 % (0.6-7.6) 08/21/17 06:30 Baso % (Auto) 0.6 % (0.3-1.7) 08/21/17 06:30 Nucleat RBC Rel Count 0.0 % (0.0-0.2) 08/21/17 06:30 Absolute Neuts (auto) 7.65 10^3/uL (1.70-6.50) H 08/21/17 06:30 Absolute Lymphs (auto) 0.91 10^3/uL (1.00-3.00) L 08/21/17 06:30 Absolute Monos (auto) 0.58 10^3/uL (0.30-0.80) 08/21/17 06:30 Absolute Eos (auto) 0.06 10^3/uL (0.03-0.40) 08/21/17 06:30 Absolute Basos (auto) 0.06 10^3/uL (0.02-0.10) 08/21/17 06:30 Absolute Nucleated RBC 0.00 10^3/uL (0-0.01) 08/21/17 06:30 Immature Gran % 0.4 % (0.0-1.1) 08/21/17 06:30 Immature Gran # 0.04 10^3/uL (0.00-0.10) 08/21/17 06:30 Sodium 141 mEq/L (135-145) 08/21/17 06:30 Potassium 4.0 mEq/L (3.5-5.2) 08/21/17 06:30 Chloride 106 mEq/L (97-110) 08/21/17 06:30 Carbon Dioxide 17 mEq/l (22-31) L 08/21/17 06:30 Anion Gap 18 mEq/L (8-16) H 08/21/17 06:30 BUN 14 mg/dL (7-23) 08/21/17 06:30 Creatinine 0.9 mg/dL (0.7-1.3) 08/21/17 06:30 Estimated GFR > 60 08/21/17 06:30 Glucose 107 mg/dL (70-100) H 08/21/17 06:30 Calcium 9.1 mg/dL (8.5-10.4) 08/21/17 06:30 Total Bilirubin 0.9 mg/dL (0.1-1.4) 08/21/17 06:30 AST 26 IU/L (17-59) 08/21/17 06:30 ALT 30 IU/L (21-72) 08/21/17 06:30 Alkaline Phosphatase 83 IU/L (38-126) 08/21/17 06:30 Total Protein 7.0 g/dL (6.3-8.2) 08/21/17 06:30 Albumin 4.3 g/dL (3.5-5.0) 08/21/17 06:30 Assessment & Plan Assessment: 27 yo M w/ seizure d/o and schizophrenia p/w seizure x2. Plan: 1. Seizures - 2 episodes this morning, not on medications; uses cannabis for treatment. - Keppra load in the ED - Admit for observation with seizure precautions - Neurology consult placed 2. Schizophrenia - Brought to ED from [facility] after being placed on an M1 hold. Diet - NPO Code - Full Ppx - Low risk Dispo - Admit under observation status
--- NOTE | 2017-08-21 13:28 | NEUROPROG ---
Assessment: HOSPITAL NEUROLOGY CONSULT REQUESTING: Dr. Feliciano REASON: seizures HPI: 27 year old man with a history of schizophrenia, severe cannabis abuse and seizures who was transferred from inpatient behavioral health due to a seizure. Patient had been untreated for his mental health issues as per his personal preference. However, he was admitted under M1 hold on 08/17 due to an acute decompensation of his mental health. He had been refusing treatment of his schizophrenia, preferring to medication with copious amounts of cannabis. When family refused to get him cannabis, he started destroying property in his parents' house. Police were summoned and he was brought to [facility] and transferred to our mental health unit under M1 hold. This AM during his inpatient stay he was noted to have a generalized convulsion. He was transferred to our ED where another convulsion was witnessed. Lorazepam was given and he was loaded with levetiracetam. He was admitted for medical observation. He has been followed by Dr. Gillette for his prior seizures with workup including an unremarkable MRI brain wow. Patient had refused antiseizure medications - lamotrigine was previously recommended given its mood stabilizing properties. Today the patient is continuing to be averse to medication. He prefers to only try sertraline, though his mental health team has spoken to him about this not being adequate treatment. He also states he prefers to use cannabis for his seizures. ROS: As per the HPI, otherwise a complete 12 point ROS was performed and is negative ALLERGIES AND MEDS: As recorded in the EMR - reviewed and reconciled PFSH: As per the intake H&P by Dr. Feliciano from today EXAM: VS reviewed in EMR GEN: WDWN laying in NAD HEENT: NCAT, sclera anicteric, conjunctiva not injected, MMM, oropharynx clear, no scalp tenderness, severe tongue laceration noted on dorsal aspect of tongue and left lateral aspect of tongue NECK: supple, nontender, no meningismus CV: RRR s1 s2 wo m/r/c/g. Carotid pulses 2+ wo bruit NEURO: MS: awake, alert, oriented to all spheres. Speech nondysarthric. No language disturbance. Follows commands. Attends to both sides. Recent/remote memory grossly intact. Mood depressed, odd affect. Adequate fund of knowledge. Poor insight/judgement. CN: pupils 3mm round and reactive. Unable to visualize fundi. VFF. Primary gaze centered. Full ocular motility. Facial sensation preserved. Face symmetric. Hearing grossly intact to finger rub. Palatoglossal movements intact. Shoulder shrug and head turn strong. MOTOR: normal bulk/tone. No adventitial movements. Full power throughout. SENSORY: intact/symmetric LT/PP in extremities. COORD: no ataxia FN/HS. [place] preserved. REFLEX: plantars down. No clonus. DTRS 2/4. GAIT: deferred for safety DATA REVIEW: Labs reviewed in EMR PERSONALLY INTERPRETED RESULTS AND DATA: nil IMPRESSION AND RECOMMENDATIONS: // EPILEPSY // SCHIZOPHRENIA Patient with another 2 witnessed unprovoked generalized convulsions. Prior workup has included MRI brain wow without any identifiable focus for seizures. He has had repeated normal neuro exams, save for the psychiatric sphere. I agree with my colleague, Dr. Gillette, that initiation of lamotrigine would be the best strategy at trying to prevent seizures while offering mood stabilization. He is still averse to medication. I advise indefinite driving restrictions if he chooses to not be on medication for seizure. Same for customary safety precautions including not climbing heights, not swimming/tub bathing alone, not operating heavy machinery and not performing any activity that could put himself or others in harm's way due to seizures. Advise return to inpatient mental health. If they are able to obtain court ordered medication therapy, then would recommend slow uptitration of lamotrigine - can initially work up to primary psych dosing, and Dr. Gillette can adjust further in the outpatient setting if needed. Will sign off. Recall PRN. Objective: Vital Signs Temp Pulse Resp BP Pulse Ox 36.5 C 91 20 96/55 L 100 08/21/17 12:28 08/21/17 12:28 08/21/17 12:28 08/21/17 12:28 08/21/17 12:28 Allergies/Adverse Reactions: No Known Allergies Allergy (Unverified 10/31/14 21:26)
[2017-08-21] MEDS ORDERED: lamoTRIgine 100 MG TAB PO SCH (15:45)
[2017-08-21 16:55] VITALS: BP 104/61
--- NOTE | 2017-08-21 18:48 | PDCONSULT ---
Repair Welder Note: HPI: 27 year old male with schizophrenia and seizure disorder admitted for medication management as he was found to be having a seizure at inpatient mental health. Per the patient, he had a seizure approximately 8 weeks ago and bit his tongue. Has a large dorsal laceration. He had another seizure yesterday and has a lateral tongue laceration. The dorsal laceration is slowly healing. No pain. ENT consulted for evaluation. O: Dorsal tongue shows 5mm laceration -- clean, granular base Left lateral tongue with small laceration -- healing A/P: 27 year old male with seizure disorder with tongue laceration. Discussed starting peridex. Both seem to be healing appropriately. Would not recommend closure at this time, especially given time frame of the dorsal tongue laceration. I started peridex. He should get peridex for the next 5 days once he is transferred back to inpatient mental health [place]. Ino Silvestre PA-C Plan discussed with Dr. Abernathy and he agrees with above Thanks for allowing us to participate in the care of this patient. If you have any further questions, please do not hesitate to contact our office.
--- NOTE | 2017-08-21 18:49 | GDS ---
[f rep st] DISCHARGE SUMMARY DIAGNOSES: 1. Acute seizure. 2. Schizophrenia. 3. Cannabis use disorder. HOSPITAL COURSE: A 27-year-old man admitted after having a seizure. This is his second seizure. He had previously seen Dr. Gillette with Neurology and had a negative MRI of his brain at that point. He was seen by Dr. Rakesh carvajal who recommended Lamictal. He has been given seizure precautions rodo ropriately including no driving. He was seen by ENT given a laceration on his tongue that he sustain ed for his previous seizure. Recommended Peridex but no procedural intervention at this time. He is medically cleared to return to Inpatient Behavioral Health. He is discharged in stable condition fo r ongoing treatment at Inpatient Behavioral Health. I have discussed this with the patient's father as well as Dr. Marti. /[id number]/MODL
[2017-08-21] MEDS ORDERED: CHLORHEXIDINE GLUCONATE 15 ML UDL PO SCH (21:00)
== END 2017-08-21 18:55 ==
LOC: EDUNIT# → EEVIPCON 07:06 → F2N 11:57
PROVIDERS: ADMIT Student in an Organized Health Care Education/Training Program; ATTEND Student in an Organized Health Care Education/Training Program
DX: G40.909 Epilepsy, unspecified, not intractable, without status epilepticus (principal); F12.10 Cannabis abuse, uncomplicated; S01.512A Laceration without foreign body of oral cavity, initial encounter; F20.9 Schizophrenia, unspecified; Y92.230 Patient room in hospital as the place of occurrence of the external cause; Y99.8 Other external cause status
CPT/HCPCS: G0378; J1953; J2060; J2405

== ENCOUNTER 2017-09-21 03:27 | Inpatient (IN) | payer MEDICAID ==
[2017-09-21] MEDS ORDERED: OLANZapine DISINTEGR 10 MG TAB PO ONE (03:34)
[2017-09-21] MEDS ORDERED: LORazepam 2 MG/ML INJ ONE (04:19)
[2017-09-21] MEDS ORDERED: LORazepam 2 MG/ML INJ IVP ONE (04:20)
[2017-09-21] MEDS ORDERED: NS 1,000 ML IV ONE ×3 (04:20→08:51)
[2017-09-21 04:33] LABS: PLATELET COUNT 247 10^3/uL (150-400)
--- NOTE | 2017-09-21 04:52 | CPEKG ---
Heart Rate: 109 RR Interval: 550 P-R Interval: 164 QRSD Interval: 96 QT Interval: 348 QTC Interval: 469 P [place]: 65 QRS [place]: 78 T Wave [place]: -20 EKG Severity - ABNORMAL ECG - EKG Impression: SINUS TACHYCARDIA EKG Impression: PROBABLE LEFT VENTRICULAR HYPERTROPHY EKG Impression: BORDERLINE PROLONGED QT INTERVAL Electronically Signed By: Ora Paulino 22-Sep-2017 05:10:25
--- NOTE | 2017-09-21 05:32 | EDPHY ---
H & P Stated Complaint: Manic, Zoloft OD? Source: Patient Exam Limitations: No limitations - Medical/Surgical History Hx Asthma: No Hx Chronic Respiratory Disease: No Hx Diabetes: No Hx Cardiac Disease: No Hx Renal Disease: No Hx Cirrhosis: No Hx Alcoholism: No Hx HIV/AIDS: No Hx Splenectomy or Spleen Trauma: No Other PMH: schizophrenia, appendectomy, seizure d/o, heavy marijuana/CBD/THC use , alcohol abuse. - Social History Smoking Status: Never smoked Time Seen by Provider: 09/21/17 03:33 HPI/ROS: The patient is unable to provide any meaningful history because of his agitation. HPI The patient presents brought in by ambulance on mental health hold for suicidal ideation and possible suicide attempt. He was agitated at home, stating that he was talking with Jose. He was acting erratically, broke things within his house using a hammer. He was complaining of feeling anxious. 911 was called. The patient took Zoloft 50 mg tabs total of 32 earlier in the evening today. He was admitted to the [facility] health unit last week. He was seen in the emergency department about 1 month ago for a seizure while admitted. REVIEW OF SYSTEMS Constitutional: No fever, no chills. Eyes: No discharge. ENT: No sore throat. Cardiovascular: No chest pain, no palpitations. Respiratory: No cough, no shortness of breath. Gastrointestinal: No abdominal pain, no vomiting. Genitourinary: No hematuria. Musculoskeletal: No back pain. Skin: No rashes. Neurological: No headache. PMHx: Schizophrenia Soc Hx: Marijuana use, housed PHYSICAL General Appearance: Agitated and anxious, rocking in the gurney Eyes: Pupils equal and round no pallor or injection ENT, Mouth: Mucous membranes moist Respiratory: There are no retractions, lungs are clear to auscultation Cardiovascular: Tachycardic rate and regular rhythm Gastrointestinal: Abdomen is soft and non-tender, no masses, bowel sounds normal Neurological: A&O, moves all extremities Skin: Warm and dry, no rashes Musculoskeletal: Neck is supple non tender Extremities: symmetrical, full range of motion Psychiatric: The patient is agitated, hyperventilating at times, not able to answer questions (Ora Paulino) Constitutional: Initial Vital Signs Heart Rate 150 H 09/21/17 03:42 Respiratory Rate 36 H 09/21/17 03:42 Blood Pressure 150/120 H 09/21/17 03:42 O2 Sat (%) 94 09/21/17 03:42 O2 Delivery Mode Room Air O2 (L/minute) 8 Allergies/Adverse Reactions: No Known Allergies Allergy (Unverified 09/21/17 03:42) Home Medications: Medication Instructions Recorded Sertraline HCl [Zoloft 100mg (*)] 100 mg PO DAILY #30 tab 09/15/17 Sertraline HCl [Zoloft 50mg (*)] 50 mg PO DAILY@1800 #30 tab 09/15/17 levETIRAcetam [Keppra 500 mg (*)] 500 mg PO BID #60 tab 09/15/17 Medical Decision Making - Diagnostics Imaging Results: Imaging Impressions Chest X-Ray 09/21/17 08:12 Impression: Negative. Differential Diagnosis: This is a 27-year-old male with history of schizophrenia who is brought in on an M1 hold for suicidal ideation with possible attempts taking Zoloft 32 pills at home as well as having possible delusions/hallucinations. Here, he is agitated and anxious in the room. He was given Zyprexa p.o. With minimal improvement in his symptoms. We were able to establish an IV to give him IV fluids and a dose of Ativan. Poison Control was consulted and they recommended EKG, basic labs, observation window. EKG was relatively unremarkable, QTc was less than 500. Labs were checked and did reveal what appears to be dehydration. Patient was given a 2 L fluid bolus. He unfortunately pulled his IV before completion of the bolus. Another IV line was established and he continue to receive fluids. Once his chemistries are repeated and normal, he will be medically clear for psychiatric evaluation. (Ora Paulino) Other Provider: I assumed care of the patient at 7 o'clock in the morning pending psychiatric disposition. The patient was somnolent. He was observed to have mild hypoxemia. Supplemental oxygen was obtained. A portable chest x-ray was ordered. I reviewed it and see no evidence of acute disease. 8:30 a.m.: The patient is much more alert. Additional IV fluids have been infused. 9:30 a.m.: Still awaiting urine, 1 L of normal saline ordered. Repeat laboratory studies have been ordered. The patient will be turned over to Dr. Barber at 3:30 p.m. Pending psychiatric evaluation and disposition. (Noah Napoles) I assumed care of this patient at 3:[address] James Napoles. Urinalysis is positive only for marijuana. Repeat chemistries demonstrate resolution of the patient's acidosis. (Deirdre Barber) - Data Points Laboratory Results: Laboratory Results 09/21/17 04:15 09/21/17 10:30 09/21/17 09/21/17 09/21/17 11:30 10:30 07:51 WBC RBC Hgb POC Hgb 11.2 gm/dL L gm/dL (13.7-17.5) Hct POC Hct 33 % L % (40-51) MCV MCH MCHC RDW Plt Count MPV Neut % (Auto) Lymph % (Auto) Wheeler % (Auto) Eos % (Auto) Baso % (Auto) Nucleat RBC Rel Count Absolute Neuts (auto) Absolute Lymphs (auto) Absolute Monos (auto) Absolute Eos (auto) Absolute Basos (auto) Absolute Nucleated RBC Immature Gran % Immature Gran # POC Sodium 147 mEq/L H mEq/L (135-145) Sodium 146 mEq/L H mEq/L (135-145) POC Potassium 3.7 mEq/L mEq/L (3.3-5.0) Potassium 3.8 mEq/L mEq/L (3.3-5.0) POC Chloride 113 mEq/L H mEq/L (97-110) Chloride 117 mEq/L H mEq/L (97-110) Carbon Dioxide 17 mEq/l L mEq/l (22-31) Anion Gap 12 mEq/L mEq/L (8-16) POC BUN 17 mg/dL mg/dL (7-23) BUN 14 mg/dL mg/dL (7-23) Creatinine 0.9 mg/dL mg/dL (0.7-1.3) POC Creatinine 1.0 mg/dL mg/dL (0.7-1.3) Estimated GFR > 60 Glucose 100 mg/dL mg/dL (70-100) POC Glucose 97 mg/dL mg/dL (70-100) Calcium 7.5 mg/dL L mg/dL (8.5-10.4) Total Bilirubin AST ALT Alkaline Phosphatase Total Protein Albumin Salicylates Urine Opiates Screen NEGATIVE (NEGATIVE) Acetaminophen Urine Barbiturates NEGATIVE (NEGATIVE) Ur Phencyclidine Scrn NEGATIVE (NEGATIVE) Ur Amphetamine Screen NEGATIVE (NEGATIVE) U Benzodiazepines Scrn NEGATIVE (NEGATIVE) Urine Cocaine Screen NEGATIVE (NEGATIVE) U Marijuana (THC) Screen NON-NEGATIVE H (NEGATIVE) Ethyl Alcohol 09/21/17 09/21/17 04:15 04:15 WBC 12.77 10^3/uL H 10^3/uL (3.80-9.50) RBC 5.14 10^6/uL 10^6/uL (4.40-6.38) Hgb 15.2 g/dL g/dL (13.7-17.5) POC Hgb Hct 41.5 % % (40.0-51.0) POC Hct MCV 80.7 fL L fL (81.5-99.8) MCH 29.6 pg pg (27.9-34.1) MCHC 36.6 g/dL g/dL (32.4-36.7) RDW 12.7 % % (11.5-15.2) Plt Count 247 10^3/uL 10^3/uL (150-400) MPV 9.7 fL fL (8.7-11.7) Neut % (Auto) 84.0 % H % (39.3-74.2) Lymph % (Auto) 7.9 % L % (15.0-45.0) Wheeler % (Auto) 7.0 % % (4.5-13.0) Eos % (Auto) 0.1 % L % (0.6-7.6) Baso % (Auto) 0.5 % % (0.3-1.7) Nucleat RBC Rel Count 0.0 % % (0.0-0.2) Absolute Neuts (auto) 10.73 10^3/uL H 10^3/uL (1.70-6.50) Absolute Lymphs (auto) 1.01 10^3/uL 10^3/uL (1.00-3.00) Absolute Monos (auto) 0.90 10^3/uL H 10^3/uL (0.30-0.80) Absolute Eos (auto) 0.01 10^3/uL L 10^3/uL (0.03-0.40) Absolute Basos (auto) 0.06 10^3/uL 10^3/uL (0.02-0.10) Absolute Nucleated RBC 0.00 10^3/uL 10^3/uL (0-0.01) Immature Gran % 0.5 % % (0.0-1.1) Immature Gran # 0.06 10^3/uL 10^3/uL (0.00-0.10) POC Sodium Sodium 149 mEq/L H mEq/L (135-145) POC Potassium Potassium 3.2 mEq/L L mEq/L (3.3-5.0) POC Chloride Chloride 112 mEq/L H mEq/L (97-110) Carbon Dioxide 13 mEq/l L mEq/l (22-31) Anion Gap 24 mEq/L H mEq/L (8-16) POC BUN BUN 21 mg/dL mg/dL (7-23) Creatinine 1.2 mg/dL mg/dL (0.7-1.3) POC Creatinine Estimated GFR > 60 Glucose 161 mg/dL H mg/dL (70-100) POC Glucose Calcium 9.8 mg/dL mg/dL (8.5-10.4) Total Bilirubin 1.5 mg/dL H mg/dL (0.1-1.4) AST 51 IU/L IU/L (17-59) ALT 45 IU/L IU/L (21-72) Alkaline Phosphatase 125 IU/L IU/L (38-126) Total Protein 7.7 g/dL g/dL (6.3-8.2) Albumin 4.9 g/dL g/dL (3.5-5.0) Salicylates < 1.0 mg/dL L mg/dL (2.0-20.0) Urine Opiates Screen Acetaminophen < 10 mcg/mL L mcg/mL (10-30) Urine Barbiturates Ur Phencyclidine Scrn Ur Amphetamine Screen U Benzodiazepines Scrn Urine Cocaine Screen U Marijuana (THC) Screen Ethyl Alcohol < 10 mg/dL mg/dL (0-10) Medications Given: Discontinued Medications Sodium Chloride (Ns) 1,000 mls @ 0 mls/hr IV ONCE ONE PRN Reason: Wide Open Stop: 09/21/17 04:21 Last Admin: 09/21/17 04:21 Dose: 1,000 mls Sodium Chloride (Ns) 1,000 mls @ 0 mls/hr IV EDNOW ONE; Wide Open PRN Reason: Protocol Stop: 09/21/17 05:29 Last Admin: 09/21/17 06:03 Dose: 1,000 mls Sodium Chloride (Ns) 1,000 mls @ 0 mls/hr IV ONCE ONE PRN Reason: Wide Open Stop: 09/21/17 08:52 Last Admin: 09/21/17 08:59 Dose: 1,000 mls Levetiracetam (Keppra) 500 mg PO EDNOW ONE Stop: 09/21/17 09:24 Last Admin: 09/21/17 10:09 Dose: 500 mg Lorazepam (Ativan Injection) 1 mg IVP EDNOW ONE Stop: 09/21/17 04:21 Last Admin: 09/21/17 04:22 Dose: 1 mg Olanzapine (Zyprexa Zydis) 10 mg PO EDNOW ONE Stop: 09/21/17 03:35 Last Admin: 09/21/17 03:40 Dose: 10 mg Point of Care Test Results: 09/21/17 07:51 POC Sodium 147 H POC Potassium 3.7 POC Chloride 113 H POC BUN 17 POC Creatinine 1.0 POC Glucose 97 Departure - Departure Clinical Impression: Suicidal ideation, Acute psychosis, Schizophrenia, chronic condition with acute exacerbation Condition: Fair Referrals: NONE *PRIMARY CARE P,. [Primary Care Provider] - As per Instructions
[2017-09-21] MEDS ORDERED: levETIRAcetam 500 MG TAB PO ONE (09:23)
[2017-09-21] MEDS ORDERED: MAGNESIUM HYDROXIDE 30 ML UDCUP PO PRN (23:15)
[2017-09-21] MEDS ORDERED: MAG HYDROX/AL HYDROX/SIMETH 30 ML UDCUP PO PRN (23:15)
[2017-09-21] MEDS ORDERED: OLANZapine 5 MG TAB PO PRN (23:15)
[2017-09-21] MEDS ORDERED: ACETAMINOPHEN 325 MG TAB PO PRN (23:15)
[2017-09-22 00:02] VITALS: BP 110/67
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
--- NOTE | 2017-09-22 13:47 | BCON ---
[f rep st] BEHAVIORAL HEALTH CONSULTATION INTERNAL MEDICINE CONSULTATION DATE OF CONSULTATION: 09/22/2017 REFERRING PHYSICIAN: Vernon Marti MD REASON FOR REFERRAL: Medical clearance for inpatient behavioral health stay. HISTORY OF PRESENT ILLNESS: This patient came to the emergency department after he had ingested approximately 32 pills of sertraline. He also had been agitated at home. Per the emergency department note, he stated that he had been talking with Jose, and he was breaking things in the house using a hammer. He was evaluated by the mental health team and admitted for further psychiatric care. He is currently without any acute complaints. PAST MEDICAL HISTORY: 1. Schizophrenia. 2. Seizure disorder. 3. Marijuana abuse. 4. Alcohol abuse. PAST SURGICAL HISTORY: He has had an appendectomy. MEDICATIONS: He was prescribed sertraline and levetiracetam, though he reports he may not have been compliant with the levetiracetam. SOCIAL HISTORY: He is a nonsmoker. He is a heavy cannabis user. He lives in his parent's basement. FAMILY HISTORY: Noncontributory. REVIEW OF SYSTEMS: He reports he still has some tremor which was more prominent earlier in his overdose. He is not in pain. He has no cough or dyspnea. He denies fevers or chills. He denies recent weight gain or weight loss. He denies nausea, vomiting, constipation, or diarrhea, and he has a good appetite. Otherwise, a 10-point review of systems is negative. PHYSICAL EXAM: VITAL SIGNS: Blood pressure is 110/67, heart rate 86, respiratory rate 16, oxygen saturation 97% on room air, temperature 36.8 degrees centigrade. His weight is 72.6 kg for a body mass index of 22.3. GENERAL: This is a well-nourished, well-developed man, somewhat unkempt with untrimmed carcamo and long dreadlocks, cooperative, and in no acute distress. HEENT: Extraocular movements are intact. Pupils are equal, round, and reactive to light. Mucous membranes are moist. Dentition is in good condition. NECK: Supple. HEART: There is a regular rate and rhythm with no murmurs, rubs, gallops. LUNGS: Clear to auscultation bilaterally. ABDOMEN: Benign. EXTREMITIES: There is no cyanosis, clubbing, or edema. NEUROLOGIC: He is alert and oriented x3. Cranial nerves 2-12 are grossly intact. There is no focal weakness. Sensation is intact to light touch. Gait is within normal limits. There is a mild tremor bilaterally to the upper extremities. LABORATORY STUDIES: From the emergency department, initially he was dehydrated with a sodium of 149 and creatinine was 1.2. He received IV hydration and subsequently sodium came down to 146. Chloride remained elevated at 117, and CO2 was low at 17. He had an anion gap of 24 initially and this resolved with an anion gap of 12 on later lab testing. Liver function tests revealed a slightly elevated total bilirubin of 1.5. Otherwise, liver functions were normal. Hematology revealed an elevated white blood cell count at 12.77. There was no left shift. After hydration, he developed mild anemia with hemoglobin of 11.2 and hematocrit of 33. Toxicology screen in the serum was negative for salicylates, acetaminophen, or ethyl alcohol. Toxicology screen in the urine was non-negative for marijuana, but negative for any other substances of abuse. IMAGING DATA: He had a chest x-ray, which was without any abnormalities. He had an EKG which revealed a corrected QT of 469. ASSESSMENT/RECOMMENDATIONS: 1. Mental health issues pending further evaluation and management per Psychiatry and the mental health team. 2. Overdose. He has a slight tremor, but otherwise seems to be without any sequelae, and there is no need for any further monitoring. 3. Prolonged QT interval. Unlikely that this was caused by sertraline, though it is not impossible. Advise repeat EKG if he is to be on any medications which have the potential to prolong the QT interval both prior to initiation of medication and once he is on a steady dose of the medication. 4. Seizure disorder with possible medication noncompliance. Encourage medication compliance. 5. Marijuana dependence. There are no clinical trials demonstrating efficacy of smoked marijuana on seizure disorder. At best there is observational data or case reports, most prominently for severe childhood seizure syndromes. It would likely be in his best interest psychiatrically to reduce or end his cannabis use. I see no medical contraindications to this patient's continued stay on the inpatient behavioral health unit or to any psychiatric medications or procedures with a caveat of insuring that his QT interval is not prolonged by any medications. Thank you very much for including me in the care of this patient and please do not hesitate to contact me or the hospitalist service should there be a need for further medical evaluation. /[id number]/MODL MTDD
[2017-09-22] MEDS: LORazepam 0.5 MG TAB PO PRN ×2 (16:17→20:22)
[2017-09-22] MEDS: BREXPIPRAZOLE 1 MG TAB PO SCH (18:09)
[2017-09-22] MEDS: levETIRAcetam 500 MG TAB PO SCH (20:22)
[2017-09-23] MEDS: LORazepam 0.5 MG TAB PO PRN ×4 (03:27→20:46)
[2017-09-23] MEDS: levETIRAcetam 500 MG TAB PO SCH ×2 (08:21→20:46)
--- NOTE | 2017-09-23 16:02 | SOAPPROG ---
GABRIELLA Progress Note Assessment/Plan: Assessment: Plan: 09/23/17 16:00 Schizophrenia: Stabilizing rapidly. Will CCM. continue d/c planning. Subjective: Pt seen, discussed with staff. Reports feeling "OK". Sitting with mother in day room, looking over materials for residential program in [place]. States he believes it would be good for him. Completed the application. I got the name of the nursing program coordinator to provide additional information and referral. He remains in good control. Less anxious and tremulous today. Tolerated first dose of Rexulti with no SE's. Actually said, "I think it helped me." Objective: Vital Signs Temp Pulse Resp BP Pulse Ox 36.8 C 86 16 110/67 97 09/22/17 00:00 09/22/17 00:00 09/22/17 00:00 09/22/17 00:00 09/22/17 00:00 MSE: Marginally groomed, coop. Affect is euthymic, stable, approp. Mood is "OK." TP generally linear. TC reveals continued AH's and IOR's. - Time Spent With Patient Time Spent With Patient: 25" ICD10 Worksheet Patient Problems: Problems Problem Status Onset Acute psychosis Acute Schizophrenia, chronic condition with acute exacerbation Acute Suicidal ideation Acute Cannabis abuse, daily use Acute Seizure Acute Seizure disorder Acute Tongue laceration Acute
[2017-09-23] MEDS: BREXPIPRAZOLE 1 MG TAB PO SCH (18:25)
[2017-09-24] MEDS: LORazepam 0.5 MG TAB PO PRN ×4 (03:54→20:32)
[2017-09-24] MEDS: levETIRAcetam 500 MG TAB PO SCH ×2 (08:12→20:21)
--- NOTE | 2017-09-24 14:03 | SOAPPROG ---
SOAP Progress Note Assessment/Plan: Assessment: Per Dr. Arguello's notes: 09/23/17 16:00 Schizophrenia: Stabilizing rapidly. Will CCM. continue d/c planning. Subjective: Pt seen, discussed with staff. Reports feeling "OK". Sitting with mother in day room, looking over materials for residential program in [place]. States he believes it would be good for him. Completed the application. I got the name of the talent coordinator to provide additional information and referral. He remains in good control. Less anxious and tremulous today. Tolerated first dose of Rexulti with no SE's. Actually said, "I think it helped me." Plan: 09/24/17 13:59 1. Pleasant, cooperative, appropriate with peers and staff. 2. Remains disorganized, confused at times, short attention span. But no evidence of active psychosis or babak. 3. Patient requesting PRNs for anxiety, but outwardly does not appear restless, fidgety or in any distress. Subjective: Met with patient, reviewed chart and d/w staff. Patient is social, cooperative and appropriate. He attended both groups this AM. He slept 7 hrs last night and ate 100% of meals. He denied any complaints to MD, but earlier reported he felt "really anxious" to RN. He has been using Ativan PRN. Patient denies hallucinations, paranoia, grandiose delusions. He does not have any oriental orthodox speech, and denies any thoughts, plan or intent to hurt himself or anyone else. He is tolerating new med, Rexulti, without any SE's. Objective: Vital Signs Temp Pulse Resp BP Pulse Ox 36.8 C 86 16 110/67 97 09/22/17 00:00 09/22/17 00:00 09/22/17 00:00 09/22/17 00:00 09/22/17 00:00 MSE: Affect: Euthymic Mood: "Good" TP: Disorganized, tangential TC: Denies any SI/HI, no AH/VH, no paranoia Insight/Judgment: Impaired - Time Spent With Patient Time Spent With Patient: 15" - Pending Discharge Pending Discharge Within 24 Hours: No Pending Discharge Within 48 Hours: No ICD10 Worksheet Patient Problems: Problems Problem Status Onset Acute psychosis Acute Schizophrenia, chronic condition with acute exacerbation Acute Suicidal ideation Acute Cannabis abuse, daily use Acute Seizure Acute Seizure disorder Acute Tongue laceration Acute
[2017-09-24] MEDS: BREXPIPRAZOLE 1 MG TAB PO SCH (18:08)
[2017-09-25] MEDS: LORazepam 0.5 MG TAB PO PRN ×2 (06:14→22:27)
[2017-09-25] MEDS: levETIRAcetam 500 MG TAB PO SCH ×2 (08:50→19:07)
--- NOTE | 2017-09-25 14:06 | SOAPPROG ---
SOAP Progress Note Assessment/Plan: Assessment: Per Dr. Arguello's notes: 09/23/17 16:00 Schizophrenia: Stabilizing rapidly. Will CCM. continue d/c planning. Subjective: Pt seen, discussed with staff. Reports feeling "OK". Sitting with mother in day room, looking over materials for residential program in [place]. States he believes it would be good for him. Completed the application. I got the name of the social work coordinator to provide additional information and referral. He remains in good control. Less anxious and tremulous today. Tolerated first dose of Rexulti with no SE's. Actually said, "I think it helped me." Plan: 09/24/17 13:59 1. Pleasant, cooperative, appropriate with peers and staff. 2. Remains disorganized, confused at times, short attention span. But no evidence of active psychosis or babak. 3. Patient requesting PRNs for anxiety, but outwardly does not appear restless, fidgety or in any distress. 09/25/17 14:03 1. Patient remains calm, cooperative, appropriate. No obvious evidence of paranoia, hallucinations, delusions. 2. Patient denies any SI/HI. 3. Spending most of day napping. Refused to attend any groups, but does eat meals in dining room and socializes with peers. Subjective: Met with patient, reviewed chart, and d/w staff. Patient refused to attend most groups, though he did participate in art therapy group. He was also observed socializing with peers during meals. But the rest of the time, he stayed in his room napping. He denies any physical complaints, and denies any active hallucinations, no evidence of paranoia or delusions. Denies any SI/HI. Objective: Vital Signs Temp Pulse Resp BP Pulse Ox 36.8 C 86 16 110/67 97 09/22/17 00:00 09/22/17 00:00 09/22/17 00:00 09/22/17 00:00 09/22/17 00:00 MSE: Affect: Euthymic Mood: "OK" TP: More coherent and linear today TC: Denies any SI/HI, no AH/VH Insight/Judgment: Improving - Time Spent With Patient Time Spent With Patient: 15" - Pending Discharge Pending Discharge Within 24 Hours: No Pending Discharge Within 48 Hours: No ICD10 Worksheet Patient Problems: Problems Problem Status Onset Acute psychosis Acute Schizophrenia, chronic condition with acute exacerbation Acute Suicidal ideation Acute Cannabis abuse, daily use Acute Seizure Acute Seizure disorder Acute Tongue laceration Acute
[2017-09-25] MEDS: BREXPIPRAZOLE 1 MG TAB PO SCH (19:07)
[2017-09-26] MEDS: LORazepam 0.5 MG TAB PO PRN ×4 (05:26→22:38)
[2017-09-26] MEDS: levETIRAcetam 500 MG TAB PO SCH ×2 (08:52→17:40)
--- NOTE | 2017-09-26 13:47 | SOAPPROG ---
SOAP Progress Note Assessment/Plan: Assessment: Plan: 09/23/17 16:00 Schizophrenia: Stabilizing rapidly. Will CCM. continue d/c planning. 09/26/17 13:45 Schizophrenia: Much improved. Will titrate Rexulti to 2mg, monitor. Likely d/ c tomorrow to travel to residential program. Subjective: Pt seen, discussed with staff. Reports looking forward to going to residential program in [place]. He remains behaviorally stable. Asks to restart antidepressant. Compliant with Rexulti. Objective: Vital Signs Temp Pulse Resp BP Pulse Ox 36.8 C 86 16 110/67 97 09/22/17 00:00 09/22/17 00:00 09/22/17 00:00 09/22/17 00:00 09/22/17 00:00 MSE: Calm, coop. Affect is euthymic, stable, approp. Mood is "depressed." TP generally linear, some delay. TC reveals no mention of delusions. AH's persist. - Time Spent With Patient Time Spent With Patient: 25" ICD10 Worksheet Patient Problems: Problems Problem Status Onset Acute psychosis Acute Schizophrenia, chronic condition with acute exacerbation Acute Suicidal ideation Acute Cannabis abuse, daily use Acute Seizure Acute Seizure disorder Acute Tongue laceration Acute
[2017-09-26] MEDS: BREXPIPRAZOLE 1 MG TAB PO SCH (17:41)
[2017-09-27] MEDS: LORazepam 0.5 MG TAB PO PRN ×2 (05:44→09:51)
[2017-09-27] MEDS: levETIRAcetam 500 MG TAB PO SCH (08:32)
== END 2017-09-27 10:05 | disposition home or self-care (01) | DRG 885 ==
LOC: EDUNIT# → BBEH 23:00
PROVIDERS: ADMIT Psychiatry & Neurology Psychiatry; ATTEND Psychiatry & Neurology Psychiatry
DX: F20.0 Paranoid schizophrenia (principal); F12.20 Cannabis dependence, uncomplicated; F10.10 Alcohol abuse, uncomplicated; R56.9 Unspecified convulsions
CPT/HCPCS: 80305; 82947-QW; 96374; G0480; J2060

== ENCOUNTER 2017-12-18 | Inpatient (IN) | payer MEDICAID | END 2017-12-18 18:03 | DRG 53 | PROVIDERS: ADMIT Psychiatry & Neurology Behavioral Neurology & Neuropsychiatry ==

== ENCOUNTER 2017-12-18 18:03 | Inpatient (IN) | payer MEDICAID ==
[2017-12-18] MEDS ORDERED: LORazepam 0.5 MG TAB PO PRN (22:08)
[2017-12-18] MEDS ORDERED: MAG HYDROX/AL HYDROX/SIMETH 30 ML UDCUP PO PRN (22:08)
[2017-12-18] MEDS ORDERED: OLANZapine DISINTEGR 10 MG TAB PO PRN (22:08)
[2017-12-18] MEDS ORDERED: ACETAMINOPHEN 325 MG TAB PO PRN (22:08)
[2017-12-18] MEDS ORDERED: NICOTINE POLACRILEX 2 MG GUM B PRN (22:08)
[2017-12-18] MEDS ORDERED: MAGNESIUM HYDROXIDE 30 ML UDCUP PO PRN (22:08)
[2017-12-19 06:58] VITALS: BP 96/59
--- NOTE | 2017-12-19 09:00 | ASMTBHMTP ---
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 Master Treatment Plan Required Signatures Psychiatrist signature: Answers: Terrence Arguello MD: RN on-shift signature: Answers: RN: Patient signature: Answers: Patient: Date Signed: 12/19/2017 08:59 AM Electronically Signed By:Adrianna Bynum
[2017-12-19] MEDS: levETIRAcetam 500 MG TAB PO SCH ×2 (11:38→21:19)
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
--- NOTE | 2017-12-20 06:32 | PDMN ---
Medical Necessity Medical necessity: MCG: B014-IP Schizophrenia spectrum disorders INPT 6 days: M1 hold,
[2017-12-20] MEDS: levETIRAcetam 500 MG TAB PO SCH (08:10)
--- NOTE | 2017-12-20 13:53 | ASMTBHDC ---
Notes Note: Notes: Pt. reports feeling "good". Pt. reports sleeping "alright". Pt. agreed to continue taking his anti-sezuire medication at home. Pt. denied SI, HI, AVH and paranoia. Pt. stated he was frustrated with his dad last night, due to FOC wanting pt. to be admitted to this unit for a longer amount of time. Pt. stated once he discharges he can walk to his father's home from the hospital. Pt. presents as very guarded, soft spoken, lacking eye contact, and pulling on his facial hair. Staff report pt. sleeping 5 hours and being medication complaint. Date Signed: 12/20/2017 01:36 PM Electronically Signed By:Adrianna Bynum
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
== END 2017-12-20 13:50 | disposition home or self-care (01) | DRG 885 ==
LOC: BBEH 18:03
PROVIDERS: ADMIT Psychiatry & Neurology Behavioral Neurology & Neuropsychiatry; ATTEND Psychiatry & Neurology Behavioral Neurology & Neuropsychiatry
DX: F25.1 Schizoaffective disorder, depressive type (principal); T43.506A Underdosing of unspecified antipsychotics and neuroleptics, initial encounter; F12.959 Cannabis use, unspecified with psychotic disorder, unspecified
CPT/HCPCS: 92523-GN

== ENCOUNTER 2018-03-02 19:44 | Emergency (ER) | payer MEDICAID ==
--- NOTE | 2018-03-02 19:54 | EDPHY ---
H & P Stated Complaint: Possible seizures, unknown when, bit tongue, confused Time Seen by Provider: 03/02/18 19:54 HPI/ROS: CHIEF COMPLAINT: [ ] HISTORY OF PRESENT ILLNESS: [Need 4: Location, Duration, Severity, Quality, Context, Timing Modifying Factors, Associated S&S] REVIEW OF SYSTEMS: A comprehensive 10 point review of systems is otherwise negative aside from elements mentioned in the history of present illness. Source: Patient Exam Limitations: No limitations - Personal History Current Tetanus Diphtheria and Acellular Pertussis (TDAP): Yes - Medical/Surgical History Hx Asthma: No Hx Chronic Respiratory Disease: No Hx Diabetes: No Hx Cardiac Disease: No Hx Renal Disease: No Hx Cirrhosis: No Hx Alcoholism: No Hx HIV/AIDS: No Hx Splenectomy or Spleen Trauma: No Other PMH: schizophrenia, appendectomy, seizure d/o, heavy marijuana/CBD/THC use , alcohol abuse. - Social History Smoking Status: Light smoker Alcohol Use: None - Physical Exam Exam: General Appearance: [Alert, no distress] Eyes: [Pupils equal and round no pallor or injection] ENT, Mouth: [Mucous membranes moist] Respiratory: [There are no retractions, lungs are clear to auscultation] Cardiovascular: [Regular rate and rhythm] Gastrointestinal: [Abdomen is soft and nontender, no masses, bowel sounds normal] Neurological: [A&O, normal motor function, normal sensory exam, normal cranial nerves] Skin: [Warm and dry, no rashes] Musculoskeletal: [Neck is supple nontender] Extremities: [symmetrical, full range of motion] Psychiatric: [Patient is oriented X 3, there is no agitation] Constitutional: Initial Vital Signs Temperature (C) 36.7 C 03/02/18 19:48 Heart Rate 105 H 03/02/18 19:48 Respiratory Rate 18 03/02/18 19:48 Blood Pressure 105/68 03/02/18 19:48 O2 Sat (%) 95 03/02/18 19:48 O2 Delivery Mode Room Air Allergies/Adverse Reactions: No Known Allergies Allergy (Verified 03/02/18 19:48) Home Medications: Medication Instructions Recorded levETIRAcetam [Keppra 500 mg (*)] 500 mg PO BID #[id number] tab 12/20/17 Departure - Departure Referrals: NONE *PRIMARY CARE P,. [Primary Care Provider] - As per Instructions
--- NOTE | 2018-03-02 20:01 | EDPHY ---
H & P Stated Complaint: Possible seizures, unknown when, bit tongue, confused Source: Patient Exam Limitations: No limitations - Personal History Current Tetanus Diphtheria and Acellular Pertussis (TDAP): Yes - Medical/Surgical History Hx Asthma: No Hx Chronic Respiratory Disease: No Hx Diabetes: No Hx Cardiac Disease: No Hx Renal Disease: No Hx Cirrhosis: No Hx Alcoholism: No Hx HIV/AIDS: No Hx Splenectomy or Spleen Trauma: No Other PMH: schizophrenia, appendectomy, seizure d/o, heavy marijuana/CBD/THC use , alcohol abuse. - Social History Smoking Status: Light smoker Time Seen by Provider: 03/02/18 19:54 HPI/ROS: CHIEF COMPLAINT: Seizure HISTORY OF PRESENT ILLNESS: The patient is brought to the emergency department after a likely seizure at home. The patient has a history of schizophrenia and seizure disorder. He is noncompliant with any psychiatric medications or his seizure medications. The patient was brought in by his father who found him confused in his apartment. The patient arrives with complaints of a mild headache and a small tongue laceration. The patient denies neck pain, abdominal pain, chest pain, difficulty breathing or other acute complaints. The patient is a heavy marijuana user. The patient adamantly refuses any antipsychotic medications. REVIEW OF SYSTEMS: A comprehensive 10 point review of systems is otherwise negative aside from elements mentioned in the history of present illness. (Noah Napoles) - Physical Exam Exam: General Appearance: Postictal, arousable Head: Atraumatic Eyes: Pupils equal, round, reactive ENT, Mouth: No hemotympanum, small tongue laceration nonsuturable Neck: Nontender, trachea midline Respiratory: No chest wall tender, no subcutaneous air, lungs clear bilaterally Cardiovascular: Regular rate and rhythm Abdomen: Abdomen is soft and nontender, pelvis stable Skin: No lacerations, No abrasion Back: No midline T/L/S pain Extremities: Nontender, full range of motion Neurological: A&Ox3, normal motor function, normal sensory exam (Noah Napoles) Constitutional: Initial Vital Signs Temperature (C) 36.7 C 03/02/18 19:48 Heart Rate 105 H 03/02/18 19:48 Respiratory Rate 18 03/02/18 19:48 Blood Pressure 105/68 03/02/18 19:48 O2 Sat (%) 95 03/02/18 19:48 O2 Delivery Mode Room Air Allergies/Adverse Reactions: No Known Allergies Allergy (Verified 03/02/18 19:48) Home Medications: Medication Instructions Recorded levETIRAcetam [Keppra 500 mg (*)] 500 mg PO BID #60 tab 12/20/17 lamoTRIgine [LamICTAL] 50 mg PO DAILY #28 tab 03/03/18 Medical Decision Making ED Course/Re-evaluation: Patient presents the ED after an unwitnessed seizure at home. He is neurologically intact but does appear to be slightly postictal. A lengthy discussion with the patient's father. The patient has a history of chronic medication noncompliance both with his medications for schizophrenia and his anti seizure medications. The patient does consent for IV fluid rehydration in the emergency department. I evaluated the patient at 8:30 p.m.. He does consent to receiving Keppra in the emergency department and will resume taking the medication as prescribed as an outpatient. The patient received 1 g of Keppra. Patient was re-evaluated at 9:00 p.m. and continues to be postictal. Patient's father would like him to be evaluated by Mental Health when he has cleared neurologically. Patient will be turned over to Dr. Ruiz at shift change. (Noah Napoles) 2203: signed over to Dr. Serrano at 10pm. Patient on detainer. Still Post ictal, got Keppra, Needs MH eval in AM. Rest here tonight. Hx. Schizophrenia. Non complaint with sz meds or Psychiatric meds. (Gaston Ruiz) Patient's care was signed out to me by Dr. Serrano at 7:00 a.m.. I saw the patient at 7:15 a.m.. Patient is resting comfortably. He is awaiting mental health evaluation 2:35 p.m. Patient is re-evaluated by me and stable. He has been evaluated by mental health and they feel he is at baseline and safe for outpatient management. Patient's father who is a physician and a mental health personalized living manager nurse and I discussed use of Lamictal to try to control both mood and seizures. He is not compliant with his Keppra already. I explained this to the patient and he is in agreement (Chidi Hunter) Differential Diagnosis: Differential diagnosis considered includes status epilepticus, dehydration, metabolic derangement, intracranial hemorrhage, occult trauma (Noah Napoles) Other Provider: [address] Ruiz pending neurologic clearing from his seizure and mental health evaluation in the morning. 0[address] patient signed out to Dr. Hunter pending mental health evaluation. There have been no issues during my care this patient overnight. (Tejinder Serrano) - Data Points Laboratory Results: Laboratory Results 03/02/18 20:22 03/02/18 20:22 03/03/18 08:30 Urine Opiates Screen NEGATIVE (NEGATIVE) Urine Barbiturates NEGATIVE (NEGATIVE) Ur Phencyclidine Scrn NEGATIVE (NEGATIVE) Ur Amphetamine Screen NEGATIVE (NEGATIVE) U Benzodiazepines Scrn NEGATIVE (NEGATIVE) Urine Cocaine Screen NEGATIVE (NEGATIVE) U Marijuana (THC) Screen NEGATIVE (NEGATIVE) Medications Given: Discontinued Medications Sodium Chloride (Ns) 1,000 mls @ 0 mls/hr IV EDNOW ONE; Wide Open PRN Reason: Protocol Stop: 03/02/18 20:03 Last Admin: 03/02/18 20:27 Dose: 1,000 mls Levetiracetam (Keppra (Premix)) 100 mls @ 400 mls/hr IV EDNOW ONE Stop: 03/02/18 20:40 Last Admin: 03/02/18 20:41 Dose: 100 mls Levetiracetam (Keppra) 500 mg PO EDNOW ONE Stop: 03/03/18 09:01 Last Admin: 03/03/18 09:10 Dose: 500 mg Departure - Departure Disposition: Home, Routine, Self-Care Clinical Impression: Seizure disorder Condition: Good Instructions: Epilepsy (ED) Additional Instructions: 1. Begin Lamictal to help control seizures and mood 2. Return to the ED for severe headache, numbness, weakness, recurrent seizure or other concerns. Referrals: NONE *PRIMARY CARE P,. [Primary Care Provider] - As per Instructions [facility] [[facility]inic] - As per Instructions Prescriptions: lamoTRIgine [LamICTAL] 50 mg PO DAILY #28 tab
[2018-03-02] MEDS ORDERED: NS 1,000 ML IV ONE (20:02)
[2018-03-02] MEDS ORDERED: levETIRAcetam 1000MG/NACL 100 ML IV ONE (20:26)
[2018-03-02 20:36] LABS: PLATELET COUNT 221 10^3/uL (150-400)
[2018-03-03] MEDS ORDERED: levETIRAcetam 500 MG TAB PO ONE (09:00)
[2018-03-03 15:23] VITALS: BP 95/63
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
== END 2018-03-03 15:25 | disposition home or self-care (01) ==
DX: G40.909 Epilepsy, unspecified, not intractable, without status epilepticus (principal); F20.0 Paranoid schizophrenia; E86.9 Volume depletion, unspecified; Z91.14 Patient's other noncompliance with medication regimen
CPT/HCPCS: 80305; 96365; J1953

== ENCOUNTER 2018-07-22 12:05 | Inpatient (IN) | payer MEDICAID ==
[2018-07-22] MEDS ORDERED: MAGNESIUM HYDROXIDE 30 ML UDCUP PO PRN (15:21)
[2018-07-22] MEDS ORDERED: LORazepam 0.5 MG TAB PO PRN (15:21)
[2018-07-22] MEDS ORDERED: ACETAMINOPHEN 325 MG TAB PO PRN (15:21)
[2018-07-22] MEDS ORDERED: OLANZapine DISINTEGR 10 MG TAB PO PRN (15:21)
[2018-07-22] MEDS ORDERED: MAG HYDROX/AL HYDROX/SIMETH 30 ML UDCUP PO PRN (15:21)
[2018-07-22] MEDS ORDERED: NICOTINE POLACRILEX 2 MG GUM B PRN (15:21)
[2018-07-22] MEDS ORDERED: MELATONIN 3 MG TAB PO PRN (15:23)
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
[2018-07-22] MEDS ORDERED: OLANZapine 10 MG/2 ML VIAL IM PRN (19:36)
[2018-07-22] MEDS ORDERED: LORazepam 2 MG/ML INJ IM PRN (19:37)
[2018-07-22] MEDS ORDERED: diphenhydrAMINE 50 MG CAP PO ONE (19:45)
[2018-07-22] MEDS ORDERED: LORazepam 1 MG TAB PO ONE (19:45)
[2018-07-22] MEDS ORDERED: OLANZapine 10 MG TAB PO ONE (19:45)
[2018-07-22] MEDS: levETIRAcetam 500 MG TAB PO SCH (22:16)
[2018-07-23] MEDS: levETIRAcetam 500 MG TAB PO SCH ×2 (10:35→20:56)
--- NOTE | 2018-07-23 15:58 | ASMTBHMTP ---
Master Treatment Plan Master Treatment Plan Answers: Impaired Reality for: Date: 07/23/2018 Diagnosis on Admission: "Psychosis" Expected length of stay: 5-7 Reason for admission: Notes: The patient refused to meet and discuss with this blog writer. Patient's stated presenting problems: Notes: The patient refused to meet and discuss with this blog writer. Patient's goals for treatment: Notes: The patient refused to meet and discuss with this blog writer. Patient's strengths: Notes: The patient refused to meet and discuss with this blog writer. Identify supports outside of hospital: Notes: The patient refused to meet and discuss with this blog writer. Discharge criteria: Notes: The patient refused to meet and discuss with this blog writer. Initial disposition plan/considerations: Notes: The patient refused to meet and discuss with this blog writer. Master Treatment Plan Required Signatures Psychiatrist signature: Answers: Terrence Arguello MD: RN on-shift signature: Answers: RN: Patient signature: Answers: Patient: Date Signed: 07/23/2018 03:58 PM Electronically Signed By:Lesley Quiles
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
[2018-07-23] MEDS ORDERED: LORazepam 1 MG TAB PO PRN (17:52)
[2018-07-23] MEDS ORDERED: LORazepam 2 MG/ML INJ IM PRN (17:52)
[2018-07-23] MEDS ORDERED: OLANZapine 10 MG/2 ML VIAL IM PRN (17:52)
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
[2018-07-23] MEDS ORDERED: OLANZapine DISINTEGR 10 MG TAB PO SCH (21:00)
[2018-07-24] MEDS: levETIRAcetam 500 MG TAB PO SCH ×2 (08:52→22:16)
--- NOTE | 2018-07-24 12:10 | ASMTCMCOM ---
CM Note CM Note Notes: The patient participated in clinical treatment team rounds. He presented as labile, irritable, and hostile. The patient lacks insight into his FL. He stated, "The anti-psychotic medications are what make me violent. You are making people violent. You can not know what I am feeling, they are my feelings. I challenge you all to an IQ test so that I can prove that I am smarter than all of you." The patient discussed an SSRI as medication treatment; he admitted collecting the medication in the past and taking it all at once "to get high." Date Signed: 07/24/2018 12:09 PM Electronically Signed By:Lesley Quiles
--- NOTE | 2018-07-24 13:07 | ASMTCMCOM ---
CM Note CM Note Notes: CC contacted FOC to confirm all necessary upcoming moves. etc. FOC noted that "I am aware of the situation and did not need any additional information at this time." He thanked this telegraphic typewriter repairer while having no additional questions or concerns. Date Signed: 07/24/2018 12:59 PM Electronically Signed By:Goyo Fang
--- NOTE | 2018-07-24 13:07 | SOAPPROG ---
SOAP Progress Note Assessment/Plan: Assessment: Plan: 07/24/18 13:08 Psychosis: Quite psychotic and hostile. Will monitor, continue to offer voluntary meds. WIll utilize Emeds if necessary. Subjective: Pt seen, discussed with staff, chart reviewed, Dr. Marti's checkout noted. He was interviewed in Treatment Team meeting. He remains oppositional and angry. Stormed into Team meeting uninvited twice. Refused to leave after he was seen. Would not actively participate in meeting, preferring to argue that the medications caused his depression, psychosis, anger and violent behaviors. He said repeatedly that "You just give people medications that make them violent and don't give a shit." He then stated, "I challenge you to an IQ test. I know I'm smarter than you and I can prove it. 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 Continues to refuse medications. Objective: MSE: Agitated, hostile, verbally aggressive. Postures towards staff and myself. TP is disorganized. TC reveals paranoid and grandiose delsuions. - Time Spent With Patient Time Spent With Patient: 25" ICD10 Worksheet Patient Problems: Problems Problem Status Onset Acute psychosis Acute Cannabis abuse, daily use Acute Schizophrenia, chronic condition with acute exacerbation Acute Seizure Acute Seizure disorder Acute Suicidal ideation Acute Tongue laceration Acute
[2018-07-24] MEDS ORDERED: ARIPIPRAZOLE (ABILIFY MAINTENA) 400 MG VIAL IM ONE (14:30)
[2018-07-25] MEDS: levETIRAcetam 500 MG TAB PO SCH ×2 (08:00→20:14)
--- NOTE | 2018-07-25 20:17 | SOAPPROG ---
SOAP Progress Note Assessment/Plan: Assessment: Plan: 07/24/18 13:08 Psychosis: Quite psychotic and hostile. Will monitor, continue to offer voluntary meds. WIll utilize Emeds if necessary. 07/25/18 20:19 Psychosis: No change. Will petition court for involuntary medications. Allow outside food due to his refusal to eat hospital food. Subjective: Pt seen, discussed with staff. Remains aloof, paranoid, oppositional, adolescent in his approach to staff and others. Had extended conversation about his illness and treatment. He continues to believe the medications he received for his first break psychosis caused his psychosis. He states repeatedly that he is going to olga me for "killing people's souls" and that "your meds are the biggest global killer." He continues to refuse any meds. I informed him that I plan to petition the court for involuntary meds. He becomes angry about this and terminates interview. He approaches me later asking to be allowed to order outside food again. He states, "I didn't do that [property destruction] because of food. I'm just mad I'm here." Objective: MSE: Adequately groomed, guarded, paranoid. Affect is restricted, stable, hostile. Mood is "bad." TP is disorganized. TC reveals paranoid thoughts, IOR 's, very poor reality testing. Exhibits prominent externalized defenses. - Time Spent With Patient Time Spent With Patient: 25" ICD10 Worksheet Patient Problems: Problems Problem Status Onset Acute psychosis Acute Cannabis abuse, daily use Acute Schizophrenia, chronic condition with acute exacerbation Acute Seizure Acute Seizure disorder Acute Suicidal ideation Acute Tongue laceration Acute
[2018-07-26] MEDS: levETIRAcetam 500 MG TAB PO SCH ×3 (08:18→20:22)
--- NOTE | 2018-07-26 13:27 | ASMTCMCOM ---
CM Note CM Note Notes: CC checked in with ct. while he was playing scrabble with another ct. He was pleasant and cooperative and reported that he is feeling somewhat "off". He said that his mood is positive but that he feels "heat" in his chest. Ct. continues to appear very dishevelled and unkempt. Date Signed: 07/26/2018 01:23 PM Electronically Signed By:Radha Skaggs
--- NOTE | 2018-07-26 20:39 | SOAPPROG ---
SOAP Progress Note Assessment/Plan: Assessment: Plan: 07/24/18 13:08 Psychosis: Quite psychotic and hostile. Will monitor, continue to offer voluntary meds. WIll utilize Emeds if necessary. 07/25/18 20:19 Psychosis: No change. Will petition court for involuntary medications. Allow outside food due to his refusal to eat hospital food. 07/26/18 20:40 Psychosis: Slight improvement in that he is no longer threatening homicide or suicide and is less disruptive and destructive. He continues to display virtually no insight into his iillness, however, and is refusting medication treatment. He was placed on a STC and we will likely pursue involuntary medications. Subjective: Pt seen, discussed with staff. He accosts me numerous times today after initially being seen by the PRINCIPAL AUTOMATION ENGINEER at my request. We reviewed medication options yesterday and he agreed to start Rexulti. Today, however, he refuses on familiar grounds that it causes Schizophrenia and depression as well as pain in his back and vibration in his chest. He is now refusing all meds again on these grounds. He is less agitated and hostile, less disruptive in the milieu. He does reiterate his plan to "get all of you patients to sign a statement that you have killed their souls with your depressant medications and then I will olga you and the hospital for millions of dollars." Objective: MSE: Calmer, more engaging. Later in interview becomes hostile and paranoid. Mood is "not good." TP is tangential. TC reveals paranoia, IOR's. - Time Spent With Patient Time Spent With Patient: 25" ICD10 Worksheet Patient Problems: Problems Problem Status Onset Acute psychosis Acute Cannabis abuse, daily use Acute Schizophrenia, chronic condition with acute exacerbation Acute Seizure Acute Seizure disorder Acute Suicidal ideation Acute Tongue laceration Acute
[2018-07-27] MEDS: levETIRAcetam 500 MG TAB PO SCH ×2 (08:56→20:33)
--- NOTE | 2018-07-27 14:48 | ASMTCMCOM ---
CM Note CM Note Notes: Client continues to present as disorganized, entitled, lacking any insigh towards mental health issues. Refusing medications including his anti-sezuire medicaitons. Client refused to participate in any pro social activites including groups and joining peer group. Client would not speak to this CC for the rest of the shift.* Date Signed: 07/27/2018 02:47 PM Electronically Signed By:Goyo Fang
--- NOTE | 2018-07-27 14:54 | SOAPPROG ---
SOAP Progress Note Assessment/Plan: Assessment: Plan: 07/24/18 13:08 Psychosis: Quite psychotic and hostile. Will monitor, continue to offer voluntary meds. WIll utilize Emeds if necessary. 07/25/18 20:19 Psychosis: No change. Will petition court for involuntary medications. Allow outside food due to his refusal to eat hospital food. 07/26/18 20:40 Psychosis: Slight improvement in that he is no longer threatening homicide or suicide and is less disruptive and destructive. He continues to display virtually no insight into his iillness, however, and is refusting medication treatment. He was placed on a STC and we will likely pursue involuntary medications. 07/27/18 14:55 Psychosis: No change today. CCM. Subjective: Pt seen, discussed with staff. He reports feeling "fine". Sits in my office and participates actively in interview, though continues circular argument about the medications causing mental illness and the validity of his physical c/ o's. He insists that the medications he took 2 - 10 years ago are still effecting him. He insists the MCCORD he took lasts for two years and states he was told this by his doctor at the time. He refuses to consider any other medications. Discussed again the possible use of Rexulti. He refers to his previous trial of this and notes that it was "the worst ever". He refers to the vibration in his chest as the primary problem followed by "losing my soul." He continues to insist that MJ is the stoddard to his wellness and refuses to take Keppra believing MJ is a superior anticonvulsant. I assure him that this is untrue, but he does not believe me. I strongly advised him to restart Keppra, but he refuses, stating, "I just have too many side effects from any medication. " He then immediately notes that "I really didn't have side effects from Keppra. It was like I wasn't taking anything." He continues to refuse it, however. Objective: MSE: Marginally groomed, coop., much less antagonistic. Affect is euthymic, stable, approp. Mood is "good." TP is linear. TC reveals continued paranoia, extremely poor reality testing. Denies SI/HI/. - Time Spent With Patient Time Spent With Patient: 25" ICD10 Worksheet Patient Problems: Problems Problem Status Onset Acute psychosis Acute Cannabis abuse, daily use Acute Schizophrenia, chronic condition with acute exacerbation Acute Seizure Acute Seizure disorder Acute Suicidal ideation Acute Tongue laceration Acute
--- NOTE | 2018-07-28 12:22 | SOAPPROG ---
SOAP Progress Note Assessment/Plan: Assessment: Plan: No change. [facility]. 07/28/18 12:23 Subjective: Following up with patient for evaluation of psychosis and safety. Patient reports, "I am okay. Just have this vibration in my chest." Patient laughs and states, "Think it is from doing drugs. Maybe from doing DMT in the past." With regard to medications patient states, "I tried Rexulti last time I was here and made me feel practically . Not interested in medications. No. Not really." Objective: Patient presents marginally groomed and is cooperative. Patient reports mood as good and affect is congruent. TP is linear. TC continued paranoia, extremely poor reality testing. Denies SI/HI/. - Time Spent With Patient Time Spent With Patient: 15 minutes, met with patient individually. - Pending Discharge Pending Discharge Within 24 Hours: No Pending Discharge Within 48 Hours: No ICD10 Worksheet Patient Problems: Problems Problem Status Onset Acute psychosis Acute Cannabis abuse, daily use Acute Schizophrenia, chronic condition with acute exacerbation Acute Seizure Acute Seizure disorder Acute Suicidal ideation Acute Tongue laceration Acute
[2018-07-28] MEDS: levETIRAcetam 500 MG TAB PO SCH ×2 (12:27→21:43)
--- NOTE | 2018-07-28 14:06 | ASMTCMCOM ---
CM Note CM Note Notes: The patient has an STC/COM hearing scheduled for August 02. The patient refused to sign an NAA for [facility] to coordinate follow up as part of his discharge plan. Date Signed: 07/28/2018 02:05 PM Electronically Signed By:Lesley Quiles
[2018-07-29] MEDS: levETIRAcetam 500 MG TAB PO SCH ×2 (08:29→20:25)
--- NOTE | 2018-07-29 15:37 | ASMTCMCOM ---
CM Note CM Note Notes: CC attempted to meet with pt. Pt. stated he did not want to talk with CC today. Staff report pt. sleeping 9.5 hours, refusing all medications, and not attending groups. Pt. has a COM court hearing this coming week. Date Signed: 07/29/2018 03:36 PM Electronically Signed By:Adrianna Bynum
--- NOTE | 2018-07-29 17:50 | SOAPPROG ---
SOAP Progress Note Assessment/Plan: Assessment: 28 yo unemployed, homeless man with h/o psychosis and severe THC dependence, was transferred from [place] to [facility] after [facility] called 911 to report patient's out of control behavior. MO reports patient "trashed" her bedroom, hit wall with golf club and dented her car. Patient has h/o aggressive behavior toward parents and property destruction. Per Dr. Arguello's most recent notes: 07/26/18 20:40 Psychosis: Slight improvement in that he is no longer threatening homicide or suicide and is less disruptive and destructive. He continues to display virtually no insight into his iillness, however, and is refusting medication treatment. He was placed on a STC and we will likely pursue involuntary medications. 07/27/18 14:55 Psychosis: No change today. CCM. Subjective: Pt seen, discussed with staff. He reports feeling "fine". Sits in my office and participates actively in interview, though continues circular argument about the medications causing mental illness and the validity of his physical c/ o's. He insists that the medications he took 2 - 10 years ago are still effecting him. He insists the MCCORD he took lasts for two years and states he was told this by his doctor at the time. He refuses to consider any other medications. Discussed again the possible use of Rexulti. He refers to his previous trial of this and notes that it was "the worst ever". He refers to the vibration in his chest as the primary problem followed by "losing my soul." He continues to insist that MJ is the stoddard to his wellness and refuses to take Keppra believing MJ is a superior anticonvulsant. I assure him that this is untrue, but he does not believe me. I strongly advised him to restart Keppra, but he refuses, stating, "I just have too many side effects from any medication. " He then immediately notes that "I really didn't have side effects from Keppra. It was like I wasn't taking anything." He continues to refuse it, however. Objective: MSE: Marginally groomed, coop., much less antagonistic. Affect is euthymic, stable, approp. Mood is "good." TP is linear. TC reveals continued paranoia, extremely poor reality testing. Denies SI/HI/. WEEKEND PLAN: 07/29/18 17:43 1. Less hostile and aggressive today, isolates in his room. However, patient is just as antagonistic that psychiatrists not knowing what they're doing, and believing he knows more about what works for him than any mental health provider. Patient says he only wants to use THC, and still refuses all meds, including Keppra for seizures. 2. Dr. Arguello is patient's primary provider and recommends court ordered involuntary treatment for patient. It's likely this is the only way he will take meds while in hospital. However, based on patient's lack of adherence after previous 5 discharges from in past 12 mos, it's unlikely that COM will be an effective intervention for patient when he isn't in hospital. Event when patient was taking antipsychotic medications and deemed stable enough to d/c from inpatient unit, he never accepted the fact that he had a serious psychotic disorder that required routine psychotropic medications. He also never believed that using THC exacerbated his symptoms despite hearing that from multiple MD' s. 3. Patient denies any seizures since admission. Staff have not witnessed any seizure-like activity since patient has been off his meds. 4. STC Subjective: Patient isolates in his room most of the day. He is wearing hospital scrubs and wrapped in blanket. He is still disheveled and unkempt. He refuses all his medications. He continues to insist that he doesn't need any anticonvulsants b/ c Keppra doesn't work as well as THC. He insists that THC does not make his psychosis worse, in fact, it helps his psychosis. He continues to c/o physical sxs he says are result of being given Olanzapine the last time he was in the hospital. He denies any SI/HI. Objective: MSE: Affect: Labile, less hostile than week ago Mood: "Fine" TP: Loose, disorganized TC: Denies any SI/HI, still paranoid and delusional (particularly about meds) Insight/Judgment: Impaired - Time Spent With Patient Time Spent With Patient: 15" - Pending Discharge Pending Discharge Within 24 Hours: No Pending Discharge Within 48 Hours: No ICD10 Worksheet Patient Problems: Problems Problem Status Onset Acute psychosis Acute Cannabis abuse, daily use Acute Schizophrenia, chronic condition with acute exacerbation Acute Seizure Acute Seizure disorder Acute Suicidal ideation Acute Tongue laceration Acute
[2018-07-30] MEDS: levETIRAcetam 500 MG TAB PO SCH ×2 (09:09→21:41)
--- NOTE | 2018-07-30 15:32 | ASMTCMCOM ---
CM Note CM Note Notes: The patient was supervised as he wrote an essay in preparation for his upcoming COM hearing. The patient requested to share it with this ad copy writer. The essay emphasizes that medication is the cause of mental illness, medical issues, and SI/HI/A/VH. The patient reported that he was not psychotic until he was treated with medication. He believes that medication also increases violent behavior. The patient underscored the extent to which he believes he has "suffered" under psychiatry; he stated, "more than 99% of the people in the world." The patient writes that eventually a medicated person will become so violent that they shoot multiple people and psychiatry will not be to blame, although according to the patient it should be. This ad copy writer pursued whether the patient was indicating HI; he did not respond.The patient reported that when he is adherent to medication he feels "murdered" and "depressed." The patient endorsed VH; stating that he believes the hallucinations are "real" and that although his mood has improved he continues to have VH in which he sees "auras." The patient continues to work on an alternate plan for recovery that includes thc use and organic/non-GMO whole foods. Date Signed: 07/30/2018 12:03 PM Electronically Signed By:Lesley Quiles
--- NOTE | 2018-07-30 17:21 | SOAPPROG ---
SOAP Progress Note Assessment/Plan: Assessment: 28 yo unemployed, homeless man with h/o psychosis and severe THC dependence, was transferred from [place] to [facility] after [facility] called 911 to report patient's out of control behavior. MO reports patient "trashed" her bedroom, hit wall with golf club and dented her car. Patient has h/o aggressive behavior toward parents and property destruction. Per Dr. Arguello's most recent notes: 07/26/18 20:40 Psychosis: Slight improvement in that he is no longer threatening homicide or suicide and is less disruptive and destructive. He continues to display virtually no insight into his iillness, however, and is refusting medication treatment. He was placed on a STC and we will likely pursue involuntary medications. 07/27/18 14:55 Psychosis: No change today. CCM. Subjective: Pt seen, discussed with staff. He reports feeling "fine". Sits in my office and participates actively in interview, though continues circular argument about the medications causing mental illness and the validity of his physical c/ o's. He insists that the medications he took 2 - 10 years ago are still effecting him. He insists the MCCORD he took lasts for two years and states he was told this by his doctor at the time. He refuses to consider any other medications. Discussed again the possible use of Rexulti. He refers to his previous trial of this and notes that it was "the worst ever". He refers to the vibration in his chest as the primary problem followed by "losing my soul." He continues to insist that MJ is the stoddard to his wellness and refuses to take Keppra believing MJ is a superior anticonvulsant. I assure him that this is untrue, but he does not believe me. I strongly advised him to restart Keppra, but he refuses, stating, "I just have too many side effects from any medication. " He then immediately notes that "I really didn't have side effects from Keppra. It was like I wasn't taking anything." He continues to refuse it, however. Objective: MSE: Marginally groomed, coop., much less antagonistic. Affect is euthymic, stable, approp. Mood is "good." TP is linear. TC reveals continued paranoia, extremely poor reality testing. Denies SI/HI/. WEEKEND PLAN: 07/29/18 17:43 1. Less hostile and aggressive today, isolates in his room. However, patient is just as antagonistic that psychiatrists not knowing what they're doing, and believing he knows more about what works for him than any mental health provider. Patient says he only wants to use THC, and still refuses all meds, including Keppra for seizures. 2. Dr. Arguello is patient's primary provider and recommends court ordered involuntary treatment for patient. It's likely this is the only way he will take meds while in hospital. However, based on patient's lack of adherence after previous 5 discharges from in past 12 mos, it's unlikely that COM will be an effective intervention for patient when he isn't in hospital. Event when patient was taking antipsychotic medications and deemed stable enough to d/c from inpatient unit, he never accepted the fact that he had a serious psychotic disorder that required routine psychotropic medications. He also never believed that using THC exacerbated his symptoms despite hearing that from multiple MD' s. 3. Patient denies any seizures since admission. Staff have not witnessed any seizure-like activity since patient has been off his meds. 4. [facility] 07/30/18 17:16 1. Patient still refusing all psych meds, including Keppra for seizures. 2. Patient wrote 6 page "essay" in preparation for his defense in court about why he shouldn't take psychotropic medications. He claims that psych meds " cause mental illness" and "make people more violent." Patient claims he only needs cannabis and "non-GMO foods" to be mentally healthy. 3. Patient denies any AH/VH, says he can see "auras." 4. ST Subjective: Patient had good visit with his MOC last night. They played Scrabble together in patient's room. He continues to isolate and is withdrawn to his room most of the afternoon. He did come out later in day to watch TV. He says he thinks his mood is improving and denies any hallucinations. He says he only sees "auras." Patient doesn't believe he should have to take psych meds, and insists he knows what's best for him more than any doctor, provider or traveling phlebotomist. Objective: MSE: Affect: Calmer, less agitated Mood: "Improving" TP: Linear most of the time, can digress and become loose TC: Denies any SI/HI, still paranoid and delusional with little ability to reality test Insight/Judgment: Poor a/e/b continued refusal to take any meds, including AED - Time Spent With Patient Time Spent With Patient: 15" - Pending Discharge Pending Discharge Within 24 Hours: No Pending Discharge Within 48 Hours: No ICD10 Worksheet Patient Problems: Problems Problem Status Onset Acute psychosis Acute Cannabis abuse, daily use Acute Schizophrenia, chronic condition with acute exacerbation Acute Seizure Acute Seizure disorder Acute Suicidal ideation Acute Tongue laceration Acute
[2018-07-31] MEDS: levETIRAcetam 500 MG TAB PO SCH ×2 (08:03→20:50)
--- NOTE | 2018-07-31 11:12 | SOAPPROG ---
SOAP Progress Note Assessment/Plan: Assessment: Plan: No change. [facility]. 07/28/18 12:23 Subjective: Following up with patient for evaluation of psychosis and safety. Patient reports, "I am doing fine. Plan to go to court this week." Patient continues to refuse medications. Objective: Patient presents marginally groomed and is cooperative. Patient reports mood as "okay" and affect is congruent. TP is linear. TC continued paranoia, extremely poor reality testing. Denies SI/HI/. MD REPORT FROM WEEKEND: Stayed in room most of the weekend. Still refusing meds. His defense in court will be that THC and "non-GMO foods" are what's best for him. - Time Spent With Patient Time Spent With Patient: 15 minutes, met with patient individually and reviewed notes from weekend. - Pending Discharge Pending Discharge Within 24 Hours: No Pending Discharge Within 48 Hours: No ICD10 Worksheet Patient Problems: Problems Problem Status Onset Acute psychosis Acute Cannabis abuse, daily use Acute Schizophrenia, chronic condition with acute exacerbation Acute Seizure Acute Seizure disorder Acute Suicidal ideation Acute Tongue laceration Acute
--- NOTE | 2018-07-31 14:52 | ASMTCMCOM ---
CM Note CM Note Notes: CC contacted [facility] at to confirm all necessary upcoming moves. etc. [facility] noted that "I am aware of the situation and did not need any additional information at this time." He thanked this chart writer while having no additional questions or concerns. Date Signed: 07/31/2018 01:26 PM Electronically Signed By:Goyo Fang
[2018-08-01] MEDS: levETIRAcetam 500 MG TAB PO SCH ×2 (07:47→20:25)
--- NOTE | 2018-08-01 14:07 | SOAPPROG ---
SOAP Progress Note Assessment/Plan: Assessment: Plan: 07/24/18 13:08 Psychosis: Quite psychotic and hostile. Will monitor, continue to offer voluntary meds. WIll utilize Emeds if necessary. 07/25/18 20:19 Psychosis: No change. Will petition court for involuntary medications. Allow outside food due to his refusal to eat hospital food. 07/26/18 20:40 Psychosis: Slight improvement in that he is no longer threatening homicide or suicide and is less disruptive and destructive. He continues to display virtually no insight into his iillness, however, and is refusting medication treatment. He was placed on a STC and we will likely pursue involuntary medications. 07/27/18 14:55 Psychosis: No change today. CCM. 08/01/18 14:07 Psychosis: Pt clinically unchanged. Remains delusional and lacking basic insight. Will proceed as outlined in Subj. Subjective: Pt seen, discussed with staff. Remains isolative, but calmer. Continues to focus on familiar persecutory delusional themes centered on the medications being harmful. Reads to me his prepared statement for court. This is verbatim when he tells me every time we talk. Continues to invest completely in the inverse association of psychosis and mood symptoms being caused by the medications. Uses as abject proof of this that he did not have psychosis until they put him on meds in the "psych hospital." When asked why he was hospitalized, he admits to "hearing and seeing things" but is still adamant about his perception of causality. He goes on to offer other "proof" including that another schizophrenic patient also doesn't like medication and believes it is bad for her, an old friend of a "recreational drug overdose" and had previously taken antipsychotic medications, and his girlfriend "has asked around " and "everyone tells her to get me off those meds." I discussed with pt the plan to terminate the current STC due to questions about jurisdiction in [facility]. I asked him if was willing to stay on a voluntary basis and he stated "definitely not." I reviewed with him the options of voluntary or involuntary treatment and my intention to proceed with a petition for involuntary medications. He would not discuss this specifically , stating, "I am going to talk to my insurance processor about that. Pt was assessed for transport and determined to need 1:1 attention available in ambulance due to behavioral issues and elopement risk. Objective: MSE: Poorly groomed, malodorous, guarded. Affect is restricted. Mood is "bad. " TP is linear for brief periods, but he remains unable to discuss any topic without quickly slipping back in to his delusional systems. Unable to accept redirection without escalation and argumentative confrontation. TC reveals continued persecutory delusions and A/V hallucinations. States today that antipsychotic medications can make someone "buy a gun and kill a bunch of people and it wouldn't be their fault." - Time Spent With Patient Time Spent With Patient: 25" ICD10 Worksheet Patient Problems: Problems Problem Status Onset Acute psychosis Acute Cannabis abuse, daily use Acute Schizophrenia, chronic condition with acute exacerbation Acute Seizure Acute Seizure disorder Acute Suicidal ideation Acute Tongue laceration Acute
--- NOTE | 2018-08-01 14:20 | ASMTCMCOM ---
CM Note CM Note Notes: The patient moved from [address] [place] [address] [place] [address] with [facility] Inpatient Behavioral [facility]. The patient didn't have questions or concerns at this time. Date Signed: 08/01/2018 02:19 PM Electronically Signed By:Lesley Quiles
[2018-08-02] MEDS: levETIRAcetam 500 MG TAB PO SCH ×2 (09:02→21:01)
--- NOTE | 2018-08-02 15:19 | ASMTCMCOM ---
CM Note CM Note Notes: The patient participated in clinical treatment team rounds. He was calm, cooperative, and engaged. The team discussed rescheduling the COM hearing, the patient's increasingly stable mood, and discontinuing assault precautions II (assault precautions I remaining). Date Signed: 08/02/2018 03:18 PM Electronically Signed By:Lesley Quiles
--- NOTE | 2018-08-02 16:07 | SOAPPROG ---
SOAP Progress Note Assessment/Plan: Assessment: Plan: 07/24/18 13:08 Psychosis: Quite psychotic and hostile. Will monitor, continue to offer voluntary meds. WIll utilize Emeds if necessary. 07/25/18 20:19 Psychosis: No change. Will petition court for involuntary medications. Allow outside food due to his refusal to eat hospital food. 07/26/18 20:40 Psychosis: Slight improvement in that he is no longer threatening homicide or suicide and is less disruptive and destructive. He continues to display virtually no insight into his iillness, however, and is refusting medication treatment. He was placed on a STC and we will likely pursue involuntary medications. 07/27/18 14:55 Psychosis: No change today. CCM. 08/01/18 14:07 Psychosis: Pt clinically unchanged. Remains delusional and lacking basic insight. Will proceed as outlined in Subj. Subjective: Pt seen, discussed with staff. Interviewed in Treatment Team meeting and case reviewed with pt's father. Pt signed NAA's for parents. He continues to refuse any medications or any discussion of medications or diagnosis. He continues to insist that cannabis and diet are the only things he needs. No aggression or property destruction. Affect is restricted, stable, approp. Mood is "bad." TP is linear at times, though falls off into delusional systems quickly. TC reveals ongoing paranoid, somatic, and bizarre delusions. Remains psychotic as characterized by disorganized thinking, poor insight and judgement, delusions, and hallucinations. Await hearing for involuntary medications. ICD10 Worksheet Patient Problems: Problems Problem Status Onset Acute psychosis Acute Cannabis abuse, daily use Acute Schizophrenia, chronic condition with acute exacerbation Acute Seizure Acute Seizure disorder Acute Suicidal ideation Acute Tongue laceration Acute
[2018-08-03] MEDS: levETIRAcetam 500 MG TAB PO SCH ×2 (08:29→20:02)
--- NOTE | 2018-08-03 15:25 | ASMTCMCOM ---
CM Note CM Note Notes: According to [facility] staff, the patient was observed expressing gratitude for his family; context unknown. The patient has been cooperative and calm in the milieu although not participating in programming. The patient continues to refuse medication including discouraging peers from utilizing medication as treatment. Date Signed: 08/03/2018 03:24 PM Electronically Signed By:Lesley Quiles
--- NOTE | 2018-08-03 15:30 | SOAPPROG ---
SOAP Progress Note Assessment/Plan: Assessment: Plan: 07/24/18 13:08 Psychosis: Quite psychotic and hostile. Will monitor, continue to offer voluntary meds. WIll utilize [facility] if necessary. 07/25/18 20:19 Psychosis: No change. Will petition court for involuntary medications. Allow outside food due to his refusal to eat hospital food. 07/26/18 20:40 Psychosis: Slight improvement in that he is no longer threatening homicide or suicide and is less disruptive and destructive. He continues to display virtually no insight into his iillness, however, and is refusting medication treatment. He was placed on a STC and we will likely pursue involuntary medications. 07/27/18 14:55 Psychosis: No change today. CCM. 08/01/18 14:07 Psychosis: Pt clinically unchanged. Remains delusional and lacking basic insight. Will proceed as outlined in Subj. 08/03/18 15:34 Psychosis: Calmer overall. Able to have a reasonable conversation today. Will consider options inc: petition for involuntary antipsychotic medications, antidepressants, ECT. I believe he could function adequately in the community with antidepressants (under supervised dispensing) if he was strictly abstinent from cannabis. Unfortunately, he has repeatedly demonstrated an inability to do this leading to severe relapse of psychosis and reemergence of paranoia and violent behaviors. Will resubmit petition for involuntary meds for now, continue discussion with patient other potential options. Subjective: Pt seen, discussed with staff. Able to sit and talk to me for an extended period of time today. Discussed symptoms and he continues to identify depression as his primary problem and ask for Zoloft. He states he is open to idea of ECT now also, but continues to refuse any antipsychotic medications. He refers to his familiar "empty" sensation in his chest and a sense of his soul dying, but does not fall off into an argumentative stance. We discussed again the negative influence of marijuana on his brain chemistry and functioning with specific reference to his paranoia, anger and violence. He acknowledges that there is a correlation b/n his use of MJ and these feelings and behaviors. He describes "liking the feeling of being high." States, however, he would "try to be clean from it for a while after I leave here." Discussed benefits of involuntary medications. I mentioned his parents' observation that he did well for 18 months in the past when he was under court- ordered treatment. He insists that he never took the antipsychotic medications during this time, only the Zoloft. He states, "The only time I have ever taken antipsychotics is when I was in the hospital and one time when I got a long- acting shot." Objective: MSE: Calm, coop. Activity and speech are normal. Affect is restricted, stable , approp. Mood is "fine." TP is generally linear with less derailment into delusional themes. TC reveals continued paranoia. Describes continued A/V halluc's. States these "never go away." - Time Spent With Patient Time Spent With Patient: 35" ICD10 Worksheet Patient Problems: Problems Problem Status Onset Acute psychosis Acute Cannabis abuse, daily use Acute Schizophrenia, chronic condition with acute exacerbation Acute Seizure Acute Seizure disorder Acute Suicidal ideation Acute Tongue laceration Acute
[2018-08-04] MEDS: levETIRAcetam 500 MG TAB PO SCH ×2 (08:13→19:26)
--- NOTE | 2018-08-04 12:47 | ASMTCMCOM ---
CM Note CM Note Notes: The patient is planning to have a family meeting with the provider to discuss COM and alternatives early next week. The patient denied SI/HI and endorsed A/VH. He reported that he is seeing "auras" and "hearing voices" that tell the patient to "take a shower" for instance. The patient reported that they are not currently dangerous. The patient is observed remaining calm, cooperating with staff, and engaging with peers in the milieu. Date Signed: 08/04/2018 12:46 PM Electronically Signed By:Lesley Quiles
--- NOTE | 2018-08-04 14:45 | SOAPPROG ---
SOAP Progress Note Assessment/Plan: Assessment: Plan: 07/24/18 13:08 Psychosis: Quite psychotic and hostile. Will monitor, continue to offer voluntary meds. WIll utilize Emed[facility] if necessary. 07/25/18 20:19 Psychosis: No change. Will petition court for involuntary medications. Allow outside food due to his refusal to eat hospital food. 07/26/18 20:40 Psychosis: Slight improvement in that he is no longer threatening homicide or suicide and is less disruptive and destructive. He continues to display virtually no insight into his iillness, however, and is refusting medication treatment. He was placed on a STC and we will likely pursue involuntary medications. 07/27/18 14:55 Psychosis: No change today. CCM. 08/01/18 14:07 Psychosis: Pt clinically unchanged. Remains delusional and lacking basic insight. Will proceed as outlined in Subj. 08/03/18 15:34 Psychosis: Calmer overall. Able to have a reasonable conversation today. Will consider options inc: petition for involuntary antipsychotic medications, antidepressants, ECT. I believe he could function adequately in the community with antidepressants (under supervised dispensing) if he was strictly abstinent from cannabis. Unfortunately, he has repeatedly demonstrated an inability to do this leading to severe relapse of psychosis and reemergence of paranoia and violent behaviors. Will resubmit petition for involuntary meds for now, continue discussion with patient other potential options. 08/04/18 14:46 Psychosis: Continued behavioral stability. Will convene family meeting on Tuesday if possible. Need to choose a direction at this point. He is relatively symptom free, though is at very high risk for immediate relapse on MJ which would predict quick behavioral decompensation. Subjective: Pt seen, discussed with staff. He remains cooperative and interactive. He continues to state he will stop MJ, but will not take medications. He is stable behaviorally though demonstrated some hostility on evening shift yesterday, yelling at staff after they slammed several doors. He is eating better with more food choices. He continues to incite others and risk reduction counselor them not to take medications. Objective: MSE: Calm, coop. Affect is euthymic, stable, approp. Mood is "fine." TP is generally linear. TC reveals no mention of paranoid thoughts or hallucinations. - Time Spent With Patient Time Spent With Patient: 25" ICD10 Worksheet Patient Problems: Problems Problem Status Onset Acute psychosis Acute Cannabis abuse, daily use Acute Schizophrenia, chronic condition with acute exacerbation Acute Seizure Acute Seizure disorder Acute Suicidal ideation Acute Tongue laceration Acute
[2018-08-05] MEDS: levETIRAcetam 500 MG TAB PO SCH ×2 (08:36→21:13)
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
[2018-08-06] MEDS: levETIRAcetam 500 MG TAB PO SCH ×2 (08:26→20:10)
--- NOTE | 2018-08-06 15:46 | ASMTCMCOM ---
CM Note CM Note Notes: Pt. reports feeling "fine". Pt. stated he does not want to meet with CC. Pt. presents as alert, calm, unkempt, socializing with peer pts., and not cooperative. Staff report pt. sleeping 6 hours and refusing all medications. CC to speak with provider about pt's potential length of stay to be able to secure follow up appointments. Date Signed: 08/06/2018 03:46 PM Electronically Signed By:Adrianna Bynum
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
[2018-08-07] MEDS: levETIRAcetam 500 MG TAB PO SCH ×2 (07:49→21:38)
--- NOTE | 2018-08-07 23:46 | SOAPPROG ---
SOAP Progress Note Assessment/Plan: Assessment: Plan: 07/24/18 13:08 Psychosis: Quite psychotic and hostile. Will monitor, continue to offer voluntary meds. WIll utilize Emeds if necessary. 07/25/18 20:19 Psychosis: No change. Will petition court for involuntary medications. Allow outside food due to his refusal to eat hospital food. 07/26/18 20:40 Psychosis: Slight improvement in that he is no longer threatening homicide or suicide and is less disruptive and destructive. He continues to display virtually no insight into his iillness, however, and is refusting medication treatment. He was placed on a STC and we will likely pursue involuntary medications. 07/27/18 14:55 Psychosis: No change today. CCM. 08/01/18 14:07 Psychosis: Pt clinically unchanged. Remains delusional and lacking basic insight. Will proceed as outlined in Subj. 08/03/18 15:34 Psychosis: Calmer overall. Able to have a reasonable conversation today. Will consider options inc: petition for involuntary antipsychotic medications, antidepressants, ECT. I believe he could function adequately in the community with antidepressants (under supervised dispensing) if he was strictly abstinent from cannabis. Unfortunately, he has repeatedly demonstrated an inability to do this leading to severe relapse of psychosis and reemergence of paranoia and violent behaviors. Will resubmit petition for involuntary meds for now, continue discussion with patient other potential options. 08/04/18 14:46 Psychosis: Continued behavioral stability. Will convene family meeting on Tuesday if possible. Need to choose a direction at this point. He is relatively symptom free, though is at very high risk for immediate relapse on MJ which would predict quick behavioral decompensation. 08/08/18 09:22 Psychosis: Much improved over admission with main therapeutic intervention being removal of MJ. Will do family meeting tomorrow morning and finalize d/c plan. I will recommend substance abuse treatment and attempt to link this to probation. Subjective: Pt seen, discussed with staff. Multiple messages and conversations with both parents today. Attempted to set a family meeting, though both were not able to be present. Scheduled for tomorrow at 1100. Pt remains in good behavioral control. Aloof and uncooperative with therapies. Continues to refuse consideration of medications. Tells me he is willing to stop MJ use, but then openly tells parents he is not going to do this. Continues to report A/V hallucinations, though these do not interfere with functioning or influence behaviors. Objective: MSE: Marginally groomed, interactive, cooperative. Activity and speech are normal. Affect is restricted, stable, approp. Mood is "fine." TP is generally linear with fewer excursions into delusional processes. TC reveals continued extremely poor insight, though less paranoid. - Time Spent With Patient Time Spent With Patient: 35" ICD10 Worksheet Patient Problems: Problems Problem Status Onset Acute psychosis Acute Cannabis abuse, daily use Acute Schizophrenia, chronic condition with acute exacerbation Acute Seizure Acute Seizure disorder Acute Suicidal ideation Acute Tongue laceration Acute
[2018-08-08] MEDS: levETIRAcetam 500 MG TAB PO SCH ×2 (08:13→20:33)
--- NOTE | 2018-08-08 13:50 | ASMTBHFAM ---
Notes Note: Notes: CC met with pt, MD, PANKAJ, YAZAN (by phone). Pt. reports wanting to go home. stated he feels pt's issues are related to his THC use. Pt. stated "don't have any marijuana to smoke". MOC expressed concerns about involving pt's P.O. and the legal system, adding they have tried that in the past and it "didn't work". FOC stated pt. is working with P.O. Maria Dolores Leger in [facility]. MOC stated pt. needs someone to help him out, pt. denies needing any help. Pt. stated he does not want any support from his parents. Pt. stated his parents lost his ID, which is why he couldn't get a job. Pt. stated he is "not going to ask for marijuana anymore. Won't ask you for anything". FOC stated pt. is on SSDI. Pt. expressed feeling bullied. Pt. reports not being willing to do counseling, adding he "want to go live my life". FOC stated substance abuse classes are a part of the pt's probation. Pt. reports not wanting to participate in any form of therapy while on this unit. Pt. stated "meditation. Only thing that's got me though". informed the meeting he will be discharging the pt. on Tuesday. Pt. reports not wanting to go to rehabilitation. MOC stated "just hope you don't hurt someone". stated " I do not feel [place] is dangerous right now". Pt. stated he plans to go to his girlfriend's house upon discharge. MOC stated pt. is not allowed to go to or stay at his girlfriend's house due to a protective order and it is employee only housing. Pt. refused all therapist referrals. Pt. stated to CC, "[I] don't want you to setup anything for me". Pt. stated he does not want a bed at the homeless [facility] reserved for him. Date Signed: 08/08/2018 01:50 PM Electronically Signed By:Adrianna Bynum
--- NOTE | 2018-08-08 14:54 | SOAPPROG ---
SOAP Progress Note Assessment/Plan: Assessment: Plan: 07/24/18 13:08 Psychosis: Quite psychotic and hostile. Will monitor, continue to offer voluntary meds. WIll utilize Emeds if necessary. 07/25/18 20:19 Psychosis: No change. Will petition court for involuntary medications. Allow outside food due to his refusal to eat hospital food. 07/26/18 20:40 Psychosis: Slight improvement in that he is no longer threatening homicide or suicide and is less disruptive and destructive. He continues to display virtually no insight into his iillness, however, and is refusting medication treatment. He was placed on a STC and we will likely pursue involuntary medications. 07/27/18 14:55 Psychosis: No change today. [facility]. 08/01/18 14:07 Psychosis: Pt clinically unchanged. Remains delusional and lacking basic insight. Will proceed as outlined in Subj. 08/03/18 15:34 Psychosis: Calmer overall. Able to have a reasonable conversation today. Will consider options inc: petition for involuntary antipsychotic medications, antidepressants, ECT. I believe he could function adequately in the community with antidepressants (under supervised dispensing) if he was strictly abstinent from cannabis. Unfortunately, he has repeatedly demonstrated an inability to do this leading to severe relapse of psychosis and reemergence of paranoia and violent behaviors. Will resubmit petition for involuntary meds for now, continue discussion with patient other potential options. 08/04/18 14:46 Psychosis: Continued behavioral stability. Will convene family meeting on Tuesday if possible. Need to choose a direction at this point. He is relatively symptom free, though is at very high risk for immediate relapse on MJ which would predict quick behavioral decompensation. 08/08/18 09:22 Psychosis: Much improved over admission with main therapeutic intervention being removal of MJ. Will do family meeting tomorrow morning and finalize d/c plan. I will recommend substance abuse treatment and attempt to link this to probation. 08/08/18 14:56 Psychosis: No interval change. Remains in good behavioral control with no overt psychosis. Will finalize d/c plan and d/c tomorrow if all is well. Subjective: Pt seen, discussed with staff. Interviewed alone and in family meeting with father present and mother on phone. We discussed pt's current condition and plan of care. Discussed my view that he is currently stable and likely does not meet criteria for further involuntary [place] [facility]. I emphasized that if he resumes any use of MJ, however, he is certain to return to a psychotic and potentially violent state. He denies this, stating repeatedly, "I can't talk about marijuana. You just don't understand." Confronted on regressive, adolescent, oppositionality and he states he feels "bullied and yelled at." Pt is offered numerous options for residential substance abuse treatment and myself, parents and CC are all encouraging of him to do this. He states repeatedly, "I can't. I need to get back to my life." Pt given feedback by myself and parents that he has never cultivated a life of his own. Mother comments on his arrested development for the past ten years and links this to his substance abuse. I concurred. Pt not willing to enter discussion about this or about how he will support himself. He states he will stay with his GF after d/c, but he is reminded by his mother that she has a restraining order against him and that she lives in an employee dorm with roommates. He insists he can "work it out." Meeting is terminated by patient after agreement that he will be discharged tomorrow to his own recognizance. I strongly advised parents to stop all financial support to patient as this is clearly enabling his drug use and lack of personal accountability. I also encouraged parents to communicate with pt's PO to attempt to provide support and accountability for abstinence with tangible consequences through the criminal justice system. Prior to concluding meeting, pt refuses offers of mental health follow-up, medications of any type including anticonvulsants and any form of counseling including trauma or substance abuse. MSE: Marginally groomed, calm, interactive. Shows no evidence of anger or hostility, though is generally oppositional. Activity and speech are normal. Affect is restricted, stable, approp. Mood is "fine." TP is linear with no derailing into delusional themes. TC reveals no evidence of active psychosis. Pt denies SI/HI/. - Time Spent With Patient Time Spent With Patient: 55" ICD10 Worksheet Patient Problems: Problems Problem Status Onset Acute psychosis Acute Cannabis abuse, daily use Acute Schizophrenia, chronic condition with acute exacerbation Acute Seizure Acute Seizure disorder Acute Suicidal ideation Acute Tongue laceration Acute
--- NOTE | 2018-08-08 15:54 | ASMTBHDC ---
Notes Note: Notes: This automobile and property underwriter attempted to discuss community resources with the patient. The patient took the paperwork and threw it in the trash. Date Signed: 08/08/2018 03:53 PM Electronically Signed By:Lesley Quiles
[2018-08-09] MEDS: levETIRAcetam 500 MG TAB PO SCH (08:17)
--- NOTE | 2018-08-09 10:52 | ASMTBHDC ---
Notes Note: Notes: Ct. was seen at team rounds in preparation for his discharge today. Ct. reported that he is planning on meeting his girlfriend. FOC will orange picker ct. from the unit and take him to his appointment with his PO scheduled for noon. Date Signed: 08/09/2018 10:51 AM Electronically Signed By:Radha Skaggs
--- NOTE | 2018-08-09 23:27 | BDS ---
[f rep st] BEHAVIORAL HEALTH DISCHARGE SUMMARY REASON FOR ADMISSION: Patient is a 28-year-old male with a history of recurrent psychosis and severe cannabis use disorder. He is well known to me from previous inpatient and outpatient amador tments over the last 4 years or so. He has a history of recurrent severe psychosis in the setting of heavy daily marijuana use. He will then typically become violent against his family and destroy the ir property. That was the case in this instance in which he acted out against his mother, destroying property within her home because he was paranoid and angry at her for not buying him more marijuana. A full description of the events preceding admission can be found in Dr. Marti's admission history d ated 07/22/2018. ADMITTING DIAGNOSES: Per Dr. Marti, psychotic disorder, not otherwise specified. Rule out substance- induced psychosis. Cannabis use disorder, severe. Chronic treatment nonadherence. ADMITTING PHYSICAL EXAMINATION: Performed by Dr. Abundio Lyons, revealed no acute physical finding s. ADMISSION LABORATORY: No labs were drawn. HOSPITAL COURSE: Patient was admitted to the behavioral health services inpatient unit on an M1 hold . He was in [facility], where his mother lives in [place], when he displayed the violent and destruct marck behaviors. His mother was afraid to go back to her home, and he had destroyed every item, includ ing furniture, glass, and other possessions within her room, and she was unable to stay there. She s tated that he had then cut himself in the process of doing this, and there was blood everywhere in he r room also. She contacted the local mental health evaluation team through [facility], and they made contact with the patient. In the process of this, he was brought to the [facility] for evaluation. In the emergency department, the windchill administrator called me to ask if I wo uld accept him in transfer. I did accept him, and he was transported 24 hours later from the emergen cy department in [place] to our hospital via ambulance. There was a delay due to weather. Upon arrival at the behavioral health services inpatient unit, the patient was disheveled, malodorous , and extremely angry and paranoid. He was verbally threatening to staff and destructive of property . He took one of the weighted chairs and threw it around in his room, causing severe damage to the w alls and floor. He also ended up breaking the chair. He rendered the room unusable after that. He later marizol a pornographic picture of myself and Dr. Marti in a sex act on the wall in the main patient area. My attempts in interaction with him were met with adolescent oppositionality, anger, paranoia , and aggression. He adamantly refused any psychotropic medications, including any antipsychotic med ications, as he continued to blame the use of these medicines 10 years ago with his ongoing problems with anger and violence. He states that it was because of several doses of antipsychotic medication in the distant past that he has these problems where he destroys property after he gets angry at his parents. He refused to have any contact with his parents, and I placed him on a short-term certifica tion. I consulted with the edge bander hand in [facility] in regard to jurisdiction, and it was f shanet that because the patient had lived 10 months out of the last year with his father in [facility] it would be reasonable to consider this as county of residence. The patient's court-appointed atto rney disagreed and argued that because he had stayed the last 2 months in [facility] and was taken into custody in [facility] that this was a jurisdictional error. We then terminated that certifica tion and placed him on a new M1 hold and ultimately a new certification in [facility]. In [facility], the patient was given approximately a week to 10 days to stabilize, and in the process of this, h e calmed, as he has in the past. It was felt by me, Dr. Marti, and the remainder of the treatment [facility] staff that the distance from the marijuana was a stoddard factor. He was given no psychotropic medicati ons during his stay, yet was able to calm completely. His aggressive and violent behaviors resolved, and his paranoia resolved as well. The majority of the patient's stay was uneventful. Once the acute psychotic symptoms waned, he was g enerally in good behavioral control. He was not cooperative with treatment as he stated he did not w ant to attend groups or do any kind of individual psychotherapy. He consistently refused approaches on a daily basis by the therapeutic staff and myself. I was able ultimately to have several lengthy conversations with him about life in general and about my impressions that the marijuana was causing his problems, and if he continued to use that, he would continue to have the same problems. I did no t ultimately file for involuntary medications as it was not felt by myself or Dr. Marti that he met anselmo dillard for ongoing involuntary hospitalization given the fact that his symptoms had largely resolved. We had a family meeting on the day prior to discharge with the patient, myself, assistant child care teacher, and patient's father present and patient's mother present by phone. We reviewed the course of events of his hospitalization, and my belief is that he primarily had a substance-induced psychosis. We stron gly recommended that he agree to a residential substance abuse treatment program to aid in ongoing an d permanent abstinence from marijuana, and he disagreed with this. The patient's parents were suppor tive as well and were unable to convince him otherwise. He is on criminal probation for some of his behaviors, and I suggested that they talk with the college service officer to see if they can enforce his p rohibition in his probation against substance use. The patient's father was able to get an appointme nt on the day of discharge with the college service officer to discuss this. The patient was ultimately discharged to his own recognizance. His father picked him up from the [facility] to take him to a meeting with the college service officer. It is my great hope that with the threat of v iolation he will submit to urinalyses and substance abuse treatment in the community. I believe that this is the only way to ultimately prevent further psychosis and violent behaviors for him. CONDITION AT DISCHARGE: Stable. He was euthymic, stable, appropriate, pleasant and cooperative. He was seen in the treatment planning meeting and stated that he had no thoughts of suicide, homicide, or violence. He did state, however, that he intended to go back to [place] to visit his girlfriend who has a restraining order against him. The treatment team advised him against this. DISCHARGE MEDICATIONS: None. DISCHARGE DIAGNOSES: Cannabis-induced psychosis. Cannabis use disorder, severe. Homelessness. [facility]. Treatment nonadherence. DISPOSITION: Patient left the hospital with his father to go to his college service officer's meeting. Followup is with whatever treatment patient will agree to with his college service officer. We gave him op tions of [facility], [facility], [facility] or [facility], and he refused these. He is es tablished at [facility] also in [facility] but refuses to go back there. Attitude at discharge was positive. He was happy and smiling when he left the hospital. The patient was a full code throughout his stay. There were no pending labs or studies at time of discharge. The patient was administered cannabis, alcohol, tobacco, and metabolic screenings. He refused to con electrical systems design engineer any referral for cannabis dependence. The patient was placed on a short-term certification at the expiration of his 2nd M1 hold. Short-ter m certification was discontinued at time of his discharge. /[id number]
== END 2018-08-09 11:45 | disposition home or self-care (01) | DRG 897 ==
LOC: BBEH 12:05
PROVIDERS: ADMIT Psychiatry & Neurology Psychiatry; ATTEND Psychiatry & Neurology Psychiatry
DX: F12.988 Cannabis use, unspecified with other cannabis-induced disorder (principal); G40.909 Epilepsy, unspecified, not intractable, without status epilepticus; T42.76XA Underdosing of unspecified antiepileptic and sedative-hypnotic drugs, initial encounter; Z91.19 Patient's noncompliance with other medical treatment and regimen; Z72.0 Tobacco use; Z59.0 Homelessness
CPT/HCPCS: J0401